=== PATIENT | female | born 1935 | race Caucasian/White ===

== ENCOUNTER 2018-03-10 13:40 | Outpatient (CLI) | payer MEDICARE, OTHER, SELFPAY ==
[2018-03-10] VITALS (13 sets, daily range): BP systolic 117–161; BP diastolic 48–106; PULSE 53–62; RESP 15–18; TEMP 36.2; O2SAT 94–100
--- NOTE | 2018-03-10 13:42 | DI.RAD.S_ITS ---
PROCEDURE: PAIN L INTERLAMINAR/CAUDAL INJ INDICATIONS: SPINAL STENOSIS FINDINGS: Fluoroscopic spot filming was performed to verify placement of spinal needles at the L4-5 interlaminar level(s), as labeled on the films. Appropriate location(s) of the needle tip(s) was confirmed by injection of iodinated contrast. IMPRESSION: Successful needle tip localization at the interlaminar region of L4-5 dorsally for epidural steroid injection. Dictated by: Mehran Rosales M.D. on 03/10/2018 at 16:16 Approved by: Mehran Rosales M.D. on 03/10/2018 at 16:17
--- NOTE | 2018-03-10 14:41 | P.PCN_ITS ---
Procedures Date/Time Date of procedure: 03/10/18 Time of procedure: 14:39 General Procedure description: PROVIDER: Luis Scott DO Operative Note PREOP DIAGNOSIS 1. HNP WITH RADICULAR FEATURES, 2. MULTILEVEL CENTRAL STENOSIS, POST OP DIAGNOSIS 1. HNP WITH RADICULAR FEATURES, 2. MULTILEVEL CENTRAL STENOSIS PROCEDURES 1. FLUORSCOPICALLY GUIDED CONTRAST CONTROLLED INTERLAMINAR EPIDURAL STEROID INJECTION -L4/5 PHYSICIAN: Luis Scott DO INDICATIONs: Stephanie is referred by Dr. Castanon for treatment of Bilateral Foraminal Stenosis R>L LE symptoms. FINDINGS Multilevel Central Spinal Stenosis with Nerve Root Compression DESCRIPTION OF PROCEDURE Fluoroscopically guided, contrast-controlled L4/5 translaminar epidural steroid injection. Following denial of allergy and review of potential side effects and complications, including, but not necessarily limited to, infection, allergic reaction, local tissue breakdown, temporary as well as permanent nerve injury, paralysis, stroke and possible , the patient indicated that the patient understood and agreed to proceed. An informed consent document was signed by the patient, witnessed by a nurse, and placed in the patient's chart. Additionally, other treatment options including modalities, medications, and physical therapy were reviewed with the patient. After review of previous anaesthesic history and IV conscious sedation the patient was deemed safe to proceed with todays procedure with IV conscious sedation as ASA class II designation. Safety time-out was performed to confirm patient ID, procedure to be performed and site of procedure. IV sedation was accomplished with a combination of 1mg was administered by the RN after DO order , titrated to patient comfort during the course of the procedure while the patient remained responsive to all verbal commands In the prone position, following sterile prep and drape of the lumbar region, the L4/5 translaminar space was identified fluoroscopically. The skin was anesthetized via a 25-gauge, 1.5-inch needle with 1% lidocaine solution. At this point, a 22-gauge short bevel spinal needle was atraumatically introduced and advanced under fluoroscopic guidance into the region of the L4/5 translaminar space. Depth was confirmed on lateral view. Radiological data, including multiple fluoroscopic views of the lumbar spine, reveal a spinal needle at the L4/5 translaminar space. Lateral views then show placement of the needle in the epidural space. Subsequent views show contrast material flowing superiorly and inferiorly in the epidural space. No vascular or intrathecal uptake is observed. At this point, using loss of resistance technique with saline and air, the epidural space was entered. This was confirmed following negative aspiration with injection of approximately 1.5 cc of Isovue 200, showing excellent epidural flow without vascular or intrathecal uptake. At this point, 1 cc of 1 % lidocaine solution combined with 3 cc or 20 mg of dexamethasone and 80mg Depo medrol was injected without incident. The patient tolerated the procedure well without signs or symptoms of complications prior to transfer to the recovery area continued monitoring without incident. The patient was then transferred to the recovery area where they were observed for an appropriate period of time after the injection. The patient reported a VAS score of 6 prior to the procedure and a post- procedure VAS of 0. Total Fluoroscopy Time: 11.8 seconds, 8.99 mGy Total Conscious Sedation Time: 24min POST OP INSTRUCTIONS The patient was provided a Pain Log to continue to record their response to the target-specific procedure prior to follow-up visit with their referring physician. Additionally, specific post-injection care instructions and a contact number to our office were provided if concerns arise regarding possible complications associated with the procedure are suspected. Luis Scott, DO Complications: none
[2018-03-10] MEDS: MIDAZOLAM 5 MG/5 ML VIAL IV (14:49)
[2018-03-10] MEDS: BUPIVACAINE 0.25% (PF) VIAL 2 ML INJ (14:50)
[2018-03-10] MEDS: DEXAMETHASONE 10 MG/ML VIAL 20 MG INJ (14:51)
[2018-03-10] MEDS: IOPAMIDOL 15 ML VIAL 3 ML INJ (14:51)
[2018-03-10] MEDS: methylPREDNISolone acetate 80 MG/ML VIAL INJ (14:51)
--- NOTE | 2018-03-11 14:09 | PC.NURSE ---
FOLLOW UP PHONE CALL MADE. MSG LEFT WITH OFFICE PHONE #
== END 2018-03-10 15:33 ==
LOC: RAD 13:41
PROVIDERS: Family Provider Internal Medicine; PCP Internal Medicine; Visit Provider Physical Medicine & Rehabilitation
DX: M51.16 Intervertebral disc disorders with radiculopathy, lumbar region (principal); M48.061 Spinal stenosis, lumbar region without neurogenic claudication; M41.26 Other idiopathic scoliosis, lumbar region
CPT/HCPCS: 62323; 99152; J1040; J1100; J2250

== ENCOUNTER 2019-05-18 22:27 | Inpatient (IN) | payer MEDICARE, OTHER, SELFPAY ==
[2019-05-18] VITALS (7 sets, daily range): BP systolic 127–162; BP diastolic 59–72; PULSE 75–86; RESP 15–25; TEMP 39.1; O2SAT 88–100
--- NOTE | 2019-05-18 22:44 | DI.RAD.S_ITS ---
PROCEDURE: XR CHEST 1V INDICATIONS: Cough TECHNIQUE: One view of the chest was acquired. COMPARISON: None. FINDINGS: Surgical changes and devices: None. Lungs and pleura: Lungs are clear. No pleural effusions or pneumothorax. Mediastinum: Mediastinal contours appear normal. Heart is enlarged. Bones and chest wall: S-shaped scoliosis of the thoracic spine. No suspicious bony lesions. Overlying soft tissues appear unremarkable. IMPRESSION: No acute cardiopulmonary disease process. Dictated by: Daxa Pa MD, PhD on 05/19/2019 at 8:41 Approved by: Daxa Pa MD, PhD on 05/19/2019 at 8:41
[2019-05-18] MEDS: ACETAMINOPHEN 325 MG TABLET 650 MG PO (22:53)
[2019-05-18] MEDS: ONDANSETRON 4 MG/2 ML INJ IV (22:53)
[2019-05-18] MEDS: SODIUM CHLORIDE 0.9% 1,000 ML 125 ML IV (22:53)
[2019-05-18 22:57] LABS: Add Manual Diff / Slide Review NO; Basophils Absolute Auto 200 /uL (0-100); Basophils Percent Auto 0.9 % (0-2); Eosinophils Absolute Auto 0 /uL (0-450); Eosinophils Percent Auto 0.3 % (2-4); Hematocrit 36.3 % (36-46); Lymphocytes Absolute Auto 1400 /uL (1100-4500); Lymphocytes Percent Auto 8.3 % (25-40); Mean Corpuscular HGB Conc 33.1 % (30-36); Mean Corpuscular Volume 90.6 fL (80-100); Monocytes Absolute Auto 1000 /uL (0-900); Monocytes Percent Auto 5.7 % (3-14); Neutrophils Absolute Auto 14400 /uL (1500-7000); Neutrophils Percent Auto 84.8 % (50-75); Platelet Count 449 X10^3/uL (150-400); Red Blood Cell Count 4.01 X10^6/uL (4.0-5.2); Red Cell Distribution Width 15.1 % (11.6-14.8)
[2019-05-18 23:06] LABS: Alanine Aminotransferase 41 IU/L (<35); Albumin 4.2 g/dL (3.5-5.0); Albumin Globulin Ratio 1.1 (1.0-2.8); Alkaline Phosphatase 116 U/L (38-126); Aspartate Aminotransferase 65 IU/L (14-36); Bilirubin Total 0.8 mg/dL (0.2-1.3); Blood Urea Nitrogen 11 mg/dL (7-17); Calcium 9.5 mg/dL (8.4-10.2); Carbon Dioxide 25 mmol/L (22-32); Chloride 96 mmol/L (98-107); Estimated Glomerular Filt Rate > 60.0 mL/min (>60); Globulin 3.9 g/dL (1.7-4.1); Glucose 114 mg/dL (80-110); HEMOLYSIS < 15 (0-50); Lipase 75 U/L (23-300); Potassium 4.6 mmol/L (3.4-5.1); Sodium 128 mmol/L (137-145); Total Protein 8.1 g/dL (6.3-8.2)
--- NOTE | 2019-05-18 23:06 | ED.WEAKNESS ---
HPI - Weakness General Chief complaint: Weakness Stated complaint: cough Time Seen by Provider: 05/18/19 22:35 Source: patient Mode of arrival: Wheelchair Limitations: no limitations History of Present Illness HPI Narrative: 84-year-old female. Has a history of rheumatoid arthritis. Takes methotrexate and also prednisone. Here for evaluation of 4-5 days of fatigue, chills, productive cough, shortness of breath. She states that just prior to that she was at her normal state health. But then started to have all of her presenting symptoms listed above. Patient does not have any underlying lung pathology. Is immunosuppressed given her rheumatoid arthritis and immune modulating medications that she takes. No recent travel. No chest pain. Has not tried anything for symptoms prior to arrival Related Data Home Medications Medication Instructions Recorded Confirmed atorvastatin [Lipitor] 20 mg PO HS #0 10/24/16 04/23/18 calcium carbonate 1 tab PO #0 10/24/16 04/23/18 enalapril maleate 2.5 mg PO QDAY #0 10/24/16 04/23/18 folic acid 1 mg PO QDAY #0 10/24/16 04/23/18 clotrimazole 1 %-betamethasone package TOP gram 03/06/18 04/23/18 0.05 % cream-zinc ox 20 % paste topical prednisone 1 mg tablet,delayed 1 mg PO DAILY 03/06/18 04/23/18 release acetaminophen-codeine 1 tab PO Q4H PRN 05/19/19 05/19/19 methotrexate sodium 2.5 mg PO QWEEK 05/19/19 05/19/19 metoprolol tartrate 50 mg PO DAILY 05/19/19 05/19/19 omeprazole 20 mg PO DAILY 05/19/19 05/19/19 Previous Rx's Medication Instructions Recorded polyethylene glycol 3350 [Miralax] 17 gm PO QDAY #1 bot 10/26/16 Allergies Allergy/AdvReac Type Severity Reaction Status Date / Time No Known Drug Allergies Allergy Verified 05/18/19 22:49 Review of Systems Constitutional Constitutional: Reports chills, Reports fatigue, Reports fever(s) and Reports malaise ENT Ears, Nose, Mouth, and Throat: Denies vertigo and Denies disequilibrium Cardiovascular Cardiovascular: Denies chest pain and Reports dyspnea Respiratory Respiratory: Reports chest congestion, Reports cough and Reports dyspnea Gastrointestinal Gastrointestinal: Denies abdominal pain and Reports nausea Musculoskeletal Comments: No change in her baseline arthritis pain Neurologic Neurologic: Denies vertigo and Denies disequilibrium Endocrine Endocrine: Reports fatigue Hematologic/Lymphatic Hematologic/Lymphatic: Denies easy bleeding and Denies easy bruising Patient History Medical History Abdominal pain (Inactive) Constipation (Inactive) Hyponatremia (Inactive) Rheumatoid arthritis (Inactive) Scoliosis (and kyphoscoliosis), idiopathic (Inactive) Spinal stenosis at L4-L5 level (Inactive) Social History Smoking Status: Former smoker alcohol intake frequency: holidays/special occasions only Substance Use Type: does not use Exam Initial Vital Signs Initial Vital Signs: Vital Signs Temperature 102.3 F H 05/18/19 22:30 Pulse Rate 76 05/18/19 22:30 Respiratory Rate 15 05/18/19 22:30 Blood Pressure 162/72 H 05/18/19 22:30 Pulse Oximetry 97 05/18/19 22:30 Const General: ill appearing Orientation: alert, awake and oriented x3 HENMT Head: normal to inspection and normocephalic Chest Chest: normal inspection of the chest Resp Effort & Inspection: cough, not labored, no respiratory distress and tachypneic Auscultation: diminished lung sounds, rales and rhonchi Cardio Rate: regular rate Pulses: radial pulses present GI Inspection: non-distended Palpation: soft and No tender Skin Lesions: no lesions Rashes: no rashes Neuro General: alert, awake and oriented x3 Cognition: normal cognition Speech: speech normal Extrem Other: Musculoskeletal exam consistent with stated history of rheumatoid arthritis Psych Appearance: grossly normal and well kempt Scores GCS Marisa coma scale eye opening: Spontaneous Muir coma scale verbal response: Orientated Muir coma scale motor response: Obey commands Marisa coma scale total score: 15 Course Orders Ordered: ED Orders 05/18/19 22:40 B Type Natriuretic Peptide Stat Complete Blood Count AUTO DIFF Stat Comprehensive Metabolic Panel Stat Lactate (Lactic Acid) Stat Lipase Stat Procalcitonin Stat Respiratory Panel (Film Array) Stat Sputum Culture Stat 05/18/19 22:44 XR chest 1V Stat 05/18/19 22:54 Blood Culture Stat Acetaminophen (Tylenol) 650 mg PO Q6HR PRN PRN Reason: As Needed for Fever/Mild Pain Sodium Chloride (Normal Saline 0.9%) 1,000 mls @ 125 mls/hr IV CONT FIDELIA Last Admin: 05/18/19 22:53 Dose: 125 mls/hr Documented by: JERSON Levofloxacin (Levaquin) 750 mg in 150 mls @ 100 mls/hr IV NOW ONE Stop: 05/19/19 01:11 Last Admin: 05/19/19 00:01 Dose: 100 mls/hr Documented by: BEBETO Naloxone HCl (Narcan) 0.2 mg IV Q2MIN PRN PRN Reason: Opiate Reversal Ondansetron HCl (Zofran Odt) 4 mg PO Q8HR PRN PRN Reason: Nausea And Vomiting Discontinued Medications Acetaminophen (Tylenol) 650 mg PO NOW ONE Stop: 05/18/19 22:46 Last Admin: 05/18/19 22:53 Dose: 650 mg Documented by: JERSON Ondansetron HCl (Zofran) 4 mg IV NOW ONE Stop: 05/18/19 22:44 Last Admin: 05/18/19 22:53 Dose: 4 mg Documented by: JERSON Vital Signs Vital signs: Vital Signs - 8 hr 05/18/19 22:30 05/18/19 22:45 05/18/19 22:57 Temperature 102.3 F H 102.3 F H Pulse Rate 76 75 76 Respiratory Rate 15 25 H 15 Blood Pressure 162/72 H 162/72 H Blood Pressure [Right Arm] Pulse Oximetry 97 97 97 05/18/19 23:00 05/18/19 23:15 05/18/19 23:30 Temperature Pulse Rate 79 79 75 Respiratory Rate 20 19 25 H Blood Pressure Blood Pressure [Right Arm] 157/59 H 127/72 Pulse Oximetry 93 100 99 05/18/19 23:34 Temperature Pulse Rate 86 Respiratory Rate Blood Pressure Blood Pressure [Right Arm] 162/72 H Pulse Oximetry 97 MDM - Weakness Lab Data Attestation: I reviewed the patient's lab results. Result diagrams: 05/18/19 22:40 05/18/19 22:40 Labs: Lab Results 05/18/19 05/18/19 05/18/19 Range/Units 22:40 22:40 22:40 WBC 17.0 H (4.5-11.0) X10^3/uL RBC 4.01 (4.0-5.2) X10^6/uL Hgb 12.0 (12.0-16.0) g/dL Hct 36.3 (36-46) % MCV 90.6 (80-100) fL MCH 30.0 (26-34) PG MCHC 33.1 (30-36) % RDW 15.1 H (11.6-14.8) % Plt Count 449 H (150-400) X10^3/uL Neut % (Auto) 84.8 H (50-75) % Lymph % (Auto) 8.3 L (25-40) % Traverse % (Auto) 5.7 (3-14) % Eos % (Auto) 0.3 L (2-4) % Baso % (Auto) 0.9 (0-2) % Neut # (Auto) 63603 H (2967-8202) /uL Lymph # (Auto) 1400 (0317-1279) /uL Traverse # (Auto) 1000 H (0-900) /uL Eos # (Auto) 0 (0-450) /uL Baso # (Auto) 200 H (0-100) /uL Sodium 128 L (137-145) mmol/L Potassium 4.6 (3.4-5.1) mmol/L Chloride 96 L (98-107) mmol/L Carbon Dioxide 25 (22-32) mmol/L BUN 11 (7-17) mg/dL Creatinine 0.50 L (0.52-1.04) mg/dL Estimated GFR > 60.0 (>60) mL/min BUN/Creatinine Ratio 22.0 (6-22) Glucose 114 H (80-110) mg/dL Lactate 1.0 (0.7-2.1) mmol/L Calcium 9.5 (8.4-10.2) mg/dL Total Bilirubin 0.8 (0.2-1.3) mg/dL AST 65 H (14-36) IU/L ALT 41 H (<35) IU/L Alkaline Phosphatase 116 (38-126) U/L B-Natriuretic Peptide 633 H (<100) Total Protein 8.1 (6.3-8.2) g/dL Albumin 4.2 (3.5-5.0) g/dL Globulin 3.9 (1.7-4.1) g/dL Albumin/Globulin Ratio 1.1 (1.0-2.8) Lipase 75 (23-300) U/L Procalcitonin (<0.5) ng/mL Chlamy pneumoniae PCR (Not Detect) Adenovirus (PCR) (Not Detect) B.parapertussis DNA PCR (Not Detect) Coronavirus OC43 (PCR) (Not Detect) Coronavirus HKU1 (PCR) (Not Detect) Coronavirus 229E (PCR) (Not Detect) Coronavirus NL63 (PCR) (Not Detect) Human Metapneumovir PCR (Not Detect) Influenza Type A (PCR) (Not Detect) Influenza Type B (PCR) (Not Detect) M. pneumoniae (PCR) (Not Detect) Parainfluenza 1 (PCR) (Not Detect) Parainfluenza 2 (PCR) (Not Detect) Parainfluenza 3 (PCR) (Not Detect) Parainfluenza 4 (PCR) (Not Detect) RSV (PCR) (Not Detect) Entero/Rhino (PCR) (Not Detect) 05/18/19 05/18/19 Range/Units 22:40 22:40 WBC (4.5-11.0) X10^3/uL RBC (4.0-5.2) X10^6/uL Hgb (12.0-16.0) g/dL Hct (36-46) % MCV (80-100) fL MCH (26-34) PG MCHC (30-36) % RDW (11.6-14.8) % Plt Count (150-400) X10^3/uL Neut % (Auto) (50-75) % Lymph % (Auto) (25-40) % Traverse % (Auto) (3-14) % Eos % (Auto) (2-4) % Baso % (Auto) (0-2) % Neut # (Auto) (9931-8543) /uL Lymph # (Auto) (4062-1453) /uL Traverse # (Auto) (0-900) /uL Eos # (Auto) (0-450) /uL Baso # (Auto) (0-100) /uL Sodium (137-145) mmol/L Potassium (3.4-5.1) mmol/L Chloride (98-107) mmol/L Carbon Dioxide (22-32) mmol/L BUN (7-17) mg/dL Creatinine (0.52-1.04) mg/dL Estimated GFR (>60) mL/min BUN/Creatinine Ratio (6-22) Glucose (80-110) mg/dL Lactate (0.7-2.1) mmol/L Calcium (8.4-10.2) mg/dL Total Bilirubin (0.2-1.3) mg/dL AST (14-36) IU/L ALT (<35) IU/L Alkaline Phosphatase (38-126) U/L B-Natriuretic Peptide (<100) Total Protein (6.3-8.2) g/dL Albumin (3.5-5.0) g/dL Globulin (1.7-4.1) g/dL Albumin/Globulin Ratio (1.0-2.8) Lipase (23-300) U/L Procalcitonin < 0.05 (<0.5) ng/mL Chlamy pneumoniae PCR Not detected (Not Detect) Adenovirus (PCR) Not detected (Not Detect) B.parapertussis DNA PCR Not detected (Not Detect) Coronavirus OC43 (PCR) Not detected (Not Detect) Coronavirus HKU1 (PCR) Not detected (Not Detect) Coronavirus 229E (PCR) Not detected (Not Detect) Coronavirus NL63 (PCR) Not detected (Not Detect) Human Metapneumovir PCR Not detected (Not Detect) Influenza Type A (PCR) Not detected (Not Detect) Influenza Type B (PCR) Not detected (Not Detect) M. pneumoniae (PCR) Not detected (Not Detect) Parainfluenza 1 (PCR) Not detected (Not Detect) Parainfluenza 2 (PCR) Not detected (Not Detect) Parainfluenza 3 (PCR) Not detected (Not Detect) Parainfluenza 4 (PCR) Not detected (Not Detect) RSV (PCR) Not detected (Not Detect) Entero/Rhino (PCR) Not detected (Not Detect) Imaging Data Chest x-ray: Attestation: I personally reviewed and interpreted this imaging study as follows: My impression: No focal consolidations MDM Narrative Medical decision making narrative: Patient clinically has pneumonia. She is febrile, productive cough, coarse breath sounds bilaterally. There is no focal consolidations on the chest x-ray however I do feel that she has pneumonia. Patient does not meet criteria for healthcare associated pneumonia. She was febrile upon arrival. Was tachypneic on my exam. Does have an elevated white blood cell count however this is in the setting of patient on methotrexate and prednisone. Patient did become slightly hypoxic to the high 80s requiring oxygen by nasal cannula to keep her oxygen saturations the 90s. Fever did improve with Tylenol. She was given fluids. Lactate procalcitonin negative. Patient was given antibiotics here in the emergency department. Discussed the case with the night nurse practitioner who will accept patient for further evaluation and treatment. Discussed the admission with the patient and her is at bedside. She expressed understanding and agreement. Discharge Plan Departure Patient Disposition: Admitted As Inpatient Clinical Impression: Pneumonia Qualifiers: Pneumonia type: due to unspecified organism Laterality: unspecified laterality Lung location: unspecified part of lung Qualified Code(s): J18.9 - Pneumonia, unspecified organism Rheumatoid arthritis Qualifiers: Rheumatoid arthritis location: unspecified site Rheumatoid factor presence: unspecified presence Qualified Code(s): M06.9 - Rheumatoid arthritis, unspecified Admit Date/Time: 05/18/19 23:51 Admit Provider: Wyatt Chen
[2019-05-18 23:26] LABS: Procalcitonin < 0.05 ng/mL (<0.5)
[2019-05-18 23:31] LABS: B Type Natriuretic Peptide 633 (<100)
[2019-05-19] VITALS (9 sets, daily range): BP systolic 127–145; BP diastolic 52–72; PULSE 72–89; RESP 16–20; TEMP 36.7–38.6; O2SAT 93–98; BMI 17.6
[2019-05-19] MEDS: levoFLOXacin 750 MG/150 ML PIGGYBACK 100 MG IV (00:01)
[2019-05-19 00:22] LABS: Adenovirus Not Detected (Not Detect); Bordetella pertussis Not Detected (Not Detect); Chlamydophila pneumoniae Not Detected (Not Detect); Coronavirus 229E Not Detected (Not Detect); Coronavirus HKU1 Not Detected (Not Detect); Coronavirus NL 63 Not Detected (Not Detect); Coronavirus OC43 Not Detected (Not Detect); Human Metapneumovirus Not Detected (Not Detect); Human Rhinovirus/Enterovirus Not Detected (Not Detect); Influenza A Not Detected (Not Detect); Influenza B Not Detected (Not Detect); Mycoplasma pneumoniae Not Detected (Not Detect); Parainfluenza Virus 1 Not Detected (Not Detect); Parainfluenza Virus 2 Not Detected (Not Detect); Parainfluenza Virus 3 Not Detected (Not Detect); Parainfluenza Virus 4 Not Detected (Not Detect); Respiratory Syncytial Virus Not Detected (Not Detect)
--- NOTE | 2019-05-19 00:58 | PM.HP.1 ---
History of Present Illness History of Present Illness Date Patient Seen: 05/19/19 Time Patient Seen: 00:58 Chief complaint: cough Narrative: The patient is an 84-year-old female with PMH of HTN, HLD, h/o breast cancer (s/p mastectomy, no h/o radiation or chemo), rheumatoid arthritis, chronic immuno suppressive therapy (on methotrexate, prednisone, and toclinizab infusions), chronic pain (2/2 degenerative joint disease, OA, and RA), chronic hyponatremia (baseline Na 130), and prior tobacco use (30 PYH, quit 1991). Patient has had a fall 5-6 months ago and suffered a severe fall w/ pelvic and hip fracture requiring surgical intervention. Patient presented to the ED on 05/18/2019 with a productive cough (+ white thick purulence). Symptoms initially noted two weeks ago, respectively. At that time having green purulence. She was evaluate and diagnosed w/ bronchitis. Patient does not recall a diagnosis of pneumonia. She was treated with a 5 day course of azithromycin (05/04-05/08 treated w/ azithromycin). She felt better, however continued to have cough with white phlegm w/o increasing purulence. In the past 3 days reports malaise, intermittent chills, nausea and dry heaving (no overt vomiting). On day of ED presentation felt short of breath. She denies worsening dyspnea with exertion; however, also notes that she has been sedentary and mobility has been diminished. She denies orthopnea, but does note difficulty laying in supine position in the last two weeks as it aggravated her cough. At baseline patient does not use oxygen. She denies AYALA, CP, palpitations, dizziness, lightheadedness or syncopal events. No hemoptysis, abdominal pain or GI distress. Reports good appetite and stable weight. Reports presence of stress incontinence and malodorous urine, w/o hematuria, dysuria or urinary frequency. At baseline ambulates with a walker. She has been receiving physical therapy in lieu of a fall and orthopedic intervention 5-6 months ago. Known to have RA. Currently treated with 8 mg of methotrexate every friday, 2 mg of prednisone daily, and tocilizumab (Actemra) infusion every 8 weeks. Her dose of methotrexate (went from 6 mg to 8 mg) and prednisone (went from 4 mg to 2 mg) recently adjusted. No known complications with prolonged methotrexate and prednisone therapy reported. Follows with assembler and tester electronics, Dr. Ramos, in [place]. Patient's PCP is Lara Castanon. UTD on influenza vaccination, received FLUAD [id number] on 03/31/2019. ED Presentation & Work-Up VS, 05/18/2019 at 22:30 T 102.3 BP 162/72 HR 76 RR 15 SpO2 97% on 2L of oxygen. Labs, 05/18/2019 at 22:40 Lactate 1.0 PCT < 0.05 WBC 17.0 Hgb 12.0 Plt 449 Na 128 K 4.6 Cl 96 Ca 9.5 Alb 4.2 CO2 25 BUN 11 Cr 0.5 BUN:CR 22 TBili 0.8 AST 65 ALT 41 Alk Phos 116 Lipase 75 BNP 633 Respiratory viral panel. NEGATIVE No urine studies done while patient in ED. Blood Cx and Sputum Cx collected in ED, pending. In ED patient was treated with ondansetron 4 mg IV for nausea (05/18 23:53), acetaminophen 650 mg PO for febrile state (05/18 23:53), and levofloxacin 750 mg IV for suspected respiratory infection (05/19 00:01). She was started on isotonic IVF (NS @ 125 ml/hr, 05/18 22:53) for hydration. Patient History Medical History (Updated 05/19/19 @ 01:18 by KAYLEIGH Hyman) Chicken pox (Inactive 1945) Chronic pain syndrome (Chronic) Constipation (Chronic) Essential hypertension (Chronic) Hyperlipidemia (Chronic) Hyponatremia (Chronic) Measles (Inactive 1946) Osteoarthritis (Chronic 2000) Pubic ramus fracture (Chronic) Rheumatoid arthritis (Chronic 1988) Scoliosis (and kyphoscoliosis), idiopathic (Inactive) Spinal stenosis at L4-L5 level (Inactive) Surgical History (Updated 05/19/19 @ 02:57 by KAYLEIGH Hyman) H/O mastectomy (Acute) S/P bilateral foot surgery (Acute) Status post hip surgery (Acute ~12/2018) Family & Social History Family History Father Heart disease Grandfather Heart disease Grandmother Diabetes mellitus Safety & Behavioral: Feels Safe in Current Yes Environment Been Physically Hurt or No Threatened By a Person Tobacco & Substance use: Smoking Status Former smoker, quit in 1991 alcohol intake frequency holiday/special occasion Substance Use Type does not use Meds Home Medications and Allergies Home Medications Medication Instructions Recorded Confirmed Type atorvastatin [Lipitor] 20 mg PO HS #0 10/24/16 05/19/19 History calcium carbonate [Calcium 500] 1 tab PO DAILY #0 10/24/16 05/19/19 History enalapril maleate 2.5 mg PO QDAY #0 10/24/16 05/19/19 History folic acid 1 mg PO QDAY #0 10/24/16 05/19/19 History polyethylene glycol 3350 [Miralax] 17 gm PO QDAY #1 bot 10/26/16 05/19/19 Rx prednisone 1 mg tablet,delayed 1 mg PO DAILY 03/06/18 05/19/19 History release acetaminophen-codeine 1 tab PO Q4H PRN 05/19/19 05/19/19 History aspirin 81 mg PO DAILY 05/19/19 05/19/19 History methotrexate sodium 2.5 mg PO QWEEK 05/19/19 05/19/19 History metoprolol tartrate 50 mg PO DAILY 05/19/19 05/19/19 History omeprazole 20 mg PO DAILY 05/19/19 05/19/19 History Allergies Allergy/AdvReac Type Severity Reaction Status Date / Time No Known Drug Allergies Allergy Verified 05/18/19 22:49 Review of Systems Review of Systems ROS Unobtainable: All systems reviewed & are unremarkable except as noted in HPI and below Exam Vital Signs (past 8 hours): - 05/18/19 22:30 05/18/19 22:45 05/18/19 22:57 Temperature 102.3 F H 102.3 F H Pulse Rate 76 75 76 Respiratory Rate 15 25 H 15 Blood Pressure 162/72 H 162/72 H Blood Pressure [Right Arm] Pulse Oximetry 97 97 97 05/18/19 23:00 05/18/19 23:15 05/18/19 23:30 Temperature Pulse Rate 79 79 75 Respiratory Rate 20 19 25 H Blood Pressure Blood Pressure [Right Arm] 157/59 H 127/72 Pulse Oximetry 93 100 99 05/18/19 23:34 05/19/19 00:07 05/19/19 00:12 Temperature 101.5 F H 101.5 F H Pulse Rate 86 Respiratory Rate Blood Pressure Blood Pressure [Right Arm] 162/72 H Pulse Oximetry 97 Oxygen Delivery Method Room Air Oxygen Flow Rate 2 Narrative Exam Narrative: Constitutional: NAD Neurologic: AOx3, no focal neurological deficits Head: NC, AT Eyes: PERRL, EOMI, Ears: external ears normal, no otorrhea Nose: external nose normal, no rhinorrhea or epistaxis Throat: MMM, oropharynx w/o exudate Neck: no masses, lymphadenopathy, or JVD Chest / Respiratory: Equal chest rise, RR 18-24, able to speak in full sentenses Cough (productive), coarse crackles throughout (worse on the left) w/ exception of RUL Heart / CV: S1S2, occasional ectopic beats, no murmur Abdomen / GI: round, NT, ND, + BS, no organomegaly : no suprapubic tenderness, [id number] suprapubic distention, no CVA Peripheral / Vascular: warm to touch, DP and PT pulses palpable, no edema BLE tender to touch (patient states this is her baseline), No overt edema or erythema Musc: full ROM of upper and lower extremities, diminished muscle tone and bulk, strength equal bilaterally Skin: no ecchymosis or suspicious lesions / ulcers, LLE w/ discoloration Objective Labs Result Diagrams: 05/18/19 22:40 05/18/19 22:40 Labs: Laboratory Results - last 24 hr 05/18/19 05/18/19 05/18/19 22:40 22:40 22:40 WBC 17.0 H RBC 4.01 Hgb 12.0 Hct 36.3 MCV 90.6 MCH 30.0 MCHC 33.1 RDW 15.1 H Plt Count 449 H Neut % (Auto) 84.8 H Lymph % (Auto) 8.3 L [place] % (Auto) 5.7 Eos % (Auto) 0.3 L Baso % (Auto) 0.9 Neut # (Auto) 97486 H Lymph # (Auto) 1400 [place] # (Auto) 1000 H Eos # (Auto) 0 Baso # (Auto) 200 H Sodium 128 L Potassium 4.6 Chloride 96 L Carbon Dioxide 25 BUN 11 Creatinine 0.50 L Estimated GFR > 60.0 BUN/Creatinine Ratio 22.0 Glucose 114 H Lactate 1.0 Calcium 9.5 Total Bilirubin 0.8 AST 65 H ALT 41 H Alkaline Phosphatase 116 B-Natriuretic Peptide 633 H Total Protein 8.1 Albumin 4.2 Globulin 3.9 Albumin/Globulin Ratio 1.1 Lipase 75 Procalcitonin Chlamy pneumoniae PCR Adenovirus (PCR) B.parapertussis DNA PCR Coronavirus OC43 (PCR) Coronavirus HKU1 (PCR) Coronavirus 229E (PCR) Coronavirus NL63 (PCR) Human Metapneumovir PCR Influenza Type A (PCR) Influenza Type B (PCR) M. pneumoniae (PCR) Parainfluenza 1 (PCR) Parainfluenza 2 (PCR) Parainfluenza 3 (PCR) Parainfluenza 4 (PCR) RSV (PCR) Entero/Rhino (PCR) 05/18/19 05/18/19 22:40 22:40 WBC RBC Hgb Hct MCV MCH MCHC RDW Plt Count Neut % (Auto) Lymph % (Auto) [place] % (Auto) Eos % (Auto) Baso % (Auto) Neut # (Auto) Lymph # (Auto) [place] # (Auto) Eos # (Auto) Baso # (Auto) Sodium Potassium Chloride Carbon Dioxide BUN Creatinine Estimated GFR BUN/Creatinine Ratio Glucose Lactate Calcium Total Bilirubin AST ALT Alkaline Phosphatase B-Natriuretic Peptide Total Protein Albumin Globulin Albumin/Globulin Ratio Lipase Procalcitonin < 0.05 Chlamy pneumoniae PCR Not detected Adenovirus (PCR) Not detected B.parapertussis DNA PCR Not detected Coronavirus OC43 (PCR) Not detected Coronavirus HKU1 (PCR) Not detected Coronavirus 229E (PCR) Not detected Coronavirus NL63 (PCR) Not detected Human Metapneumovir PCR Not detected Influenza Type A (PCR) Not detected Influenza Type B (PCR) Not detected M. pneumoniae (PCR) Not detected Parainfluenza 1 (PCR) Not detected Parainfluenza 2 (PCR) Not detected Parainfluenza 3 (PCR) Not detected Parainfluenza 4 (PCR) Not detected RSV (PCR) Not detected Entero/Rhino (PCR) Not detected Assessment & Plan Assessment & Plan narrative: Patient is being admitted for acute respiratory failure with hypoxia. Acute respiratory failure wih hypoxia, present on admission, active - etiology is not entirely clear at this time bacterial bronchitis, PNA / pneumonitis, vs acute pulmonary edema - leukocytosis (reactive) vs in the setting of infection vs coritcosteroid induced (less likely, given presence of neutrophils / left shift) - lactate, PCT, and RVP WNL - elevated BNP w/ interstitial edema / pulm congestion on CXR, kenzie give 20 mg IV lasix - repeat CXR in am, 2 view - may need to consider CTA of chest to r/o PE, w/in 5 months of orthopedic surgery (on ASA, but no other anticoagulation; sedentary); no sx of DVT - on immunosuppression w/ medication w/ predisposition to pneumonitis and interstitial lung disease - consult RT, supplemental O2 prn, IS - check labs in am - CBC, CMP, Mg Sepsis, possible or suspected, present on admission, active T 102.3F Tachypnea WBC 17.0 w/ organ dysfunction (ie acute respiratory failure) Lactate and PCT WNL. On 05/04/2019 treated w/ a 5 day course of azithromycin. RVP negative. CXR w/o acute findings (per ED communication, final read pending) - blood cx (collected in ED), pending, to be followed - sputum cx (collected in ED), pending, to be followed - will obtain urinalysis - f/u on final cxr read, when available in am - patient is immunocompromised due to h/o RA - supportive care: anti-emetics, analgesics - number of factors against further abx therapy; received 750 mg of levofloxacin in ED; however, will continue pending blood cx results and repeat cxr her next dose is adjust to Q48 hours per her age and CrCl Elevated BNP, acute, present on admission, active - BNP 633, no trend available to compare - acute pulmonary edema vs pneumonia - CXR final read pending. Appears to have cardiomegally and pulmonary congestion. Stop IVF. Give 20 mg IV furosemide x1. - Check Trop results reviewed: Trop 0.056, will obtain STAT EKG - EKG results: SR (v-rate 75), left atrial enlargement, possible RV conduction delay, LVH and non-specific ST/T abnormality. Consistent with prior EKG, non-ischemic. - Most recent echo from 09/13/2016. LVEF 60-65% w/ [id number] bi-ventricular hypertrophy (see details below) LVEF 60-65%. LV normal in size and function. Normal wall motion. Mild to moderate concentric LVH. RV normal in size and function. Mild RV hypertrophy. Both atria normal in size . No Doppler evidence for an atrial septal defect. No overt valvular defects. Age related calcification of the aortic valve, but no stenosis or regurgitation present Mild atherosclerosis of the abdominal aorta. Compared to study from 06/30/2009 w/ new findings of bi-ventricular hypetrophy and could be related to patient's rheumatoid arthritis Type II myocardial infarction w/o ST elevation, acute, present on admission, active - Sx of hypoxia and dyspnea, no active CP - Suspected to be in the setting of an acute respiratory failure secondary to pulmonary vascular congestion and/or pneumonia - Trop 0.056 EKG non-ischemic, non-specific ST-T changes w/o overt depression, no pathological Q-waves Elevated liver enzymes, acute, present on admission, active - AST 65 and ALT 45, mild elevation. No abdominal pain. Bilirubin WNL. Continue trending. CMP ordered for am. Hyponatremia, chronic per review of records, present on admission, active / stable - Na 128 (baseline 130), continue trending - potentially exacerbated by pulmonary congestion, concern for acute heart failure, will give 20 mg IV furosemide tonight and re-evaluate in am - may need to consider fluid / free water restriction Moderate protein calorie malnutrition, present on admission, active 84 y.o BMI 17.7 w/ moderate loss of body fat and diminished physical function Rheumatoid arthritis, chronic condition, present on admission, active / stable - Resume PROPERTY TECHNICIAN regimen of prednisone and methotrexate - On tocilizumab (Actemra) infusions every 8 weeks, last on 05/14/2019 - pending blood cx results and repeat cxr, perhaps consider temporary cessation of immunosuppression until bacterial infection can be healed; may need to discuss w/ her assembler and tester electronics Chronic pain syndrome, present on admission, active / stable - controlled Multi-factorial: RA, OA, DJD, cervical radiculopathy, scoliosis, and chronic ramus fx - continue tylenol w/ codeine Essential hypertension, chronic condition, present on admission, active / stable Presented in mild-moderate hypertensive state for age. PT improved w/o interventions. PROPERTY TECHNICIAN on enalapril 2.5 mg daily. - Continue trending BPs - Hold PROPERTY TECHNICIAN regimen of enalapril for now out of concern for sepsis and potential hemodynamic decompensation, will re-evaluate in a.m. and/or daily and resume anti-hypertensive accordingly Hyperlipidemia, chronic condition, present on admission, active / stable - controlled - Controlled w/ atorvastatin 20 mg QHS, resume PROPERTY TECHNICIAN regimen Code status discussed with patient. Wishes to be full code. Proxy decision maker is her son Dominic (primary), daughter Tennille (secondary) and Son Eric (secondary). Home medications reviewed and reconciled accordingly. VTE prophylaxis w/ SQ heparin
[2019-05-19 01:30] LABS: Troponin I 0.056 ng/mL (0.01-0.034)
--- NOTE | 2019-05-19 02:22 | PC.ADMIT ---
Addendum entered by Tamie Villatoro R.N. 05/19/19 06:06: Educated pt on purpose and use of incentive spirometer, pt is familiar with its use. Had pt do 5 repetitions with fair ability averaging 750ml, educated pt to do 10 reps every hour. Addendum entered by Tamie Villatoro R.N. 05/19/19 05:29: Pt having difficulty using call light, re-educated. Pt reports that she had her put her on the bed martin, found bedpan in bed with pt with 200ml urine. Educated pt that staff needs to assist pt, appears to be asleep at this time. Original Note: [phone] Admission Note: The patient,Stephanie Guzmán,84 y/o, was given written information regarding hospital policies, unit procedures and contact persons. Patient's smoking status: Former smoker. Vital Signs - 8 hr 05/18/19 22:30 05/18/19 22:45 05/18/19 22:57 Temperature 102.3 F H 102.3 F H Pulse Rate 76 75 76 Respiratory Rate 15 25 H 15 Blood Pressure 162/72 H 162/72 H Blood Pressure [Right Arm] Pulse Oximetry 97 97 97 05/18/19 23:00 05/18/19 23:15 05/18/19 23:30 Temperature Pulse Rate 79 79 75 Respiratory Rate 20 19 25 H Blood Pressure Blood Pressure [Right Arm] 157/59 H 127/72 Pulse Oximetry 93 100 99 05/18/19 23:34 05/19/19 00:07 05/19/19 00:12 Temperature 101.5 F H 101.5 F H Pulse Rate 86 Respiratory Rate Blood Pressure Blood Pressure [Right Arm] 162/72 H Pulse Oximetry 97 05/19/19 01:00 Temperature 98.8 F Pulse Rate 79 Respiratory Rate 20 Blood Pressure 129/52 L Blood Pressure [Right Arm] Pulse Oximetry 94 Pt arrived via stretcher accompanied by ED RN and Max, transferred via slider board to bed, pt has generalized pain and is sensitive to the slightest touch and movement. Pt is AxOx3, but does demonstrate some memory loss and directs some questions to to answer, makes mistakes with words such as saying broccoli instead of bronchitis and asking if she will have surgery for this admission, pt also was unsure of the name of the hospital she is in but is aware that she is in the hospital for current illness. Lung sounds are coarse crackles in the bases, is currently on RA, has intermittent cough that is wet sounding that produces thick white mucus. Heart sounds are RR, tele is NSR with BBB. Skin assessment is notable for abrasion in LLE and a large bruise to lechuga, and bruise to LRE on inside aspect just above the ankle. Pt reports that she takes strong doses of pain meds for long standing history of arthritis. Pt is unable to tolerate most touch, SCDs are refused at this time. Pt is a moderate fall risk d/t weakness but no hx of recent falls (fall approx 6 months ago). Bed alarm on and functioning, call light in reach and demonstrated, will continue to monitor.
[2019-05-19 03:19] LABS: Appearance Urine UA CLEAR; Bilirubin Urine UA NEGATIVE (NEGATIVE); Color Urine UA YELLOW; Glucose Urine UA TRACE g/dL (Negative); Ketones Urine UA TRACE (NEGATIVE); Leukocyte Esterase Urine UA NEGATIVE (NEGATIVE); Nitrite Urine UA NEGATIVE (Negative); Occult Blood Urine UA 1+ (Negative); Protein Urine UA 2+ (Negative)
[2019-05-19 03:22] LABS: pH Urine UA 7.5 (4.5-8.0)
[2019-05-19 03:27] LABS: RBC Urine 1-5/HPF (0-5/HPF)
[2019-05-19 03:28] LABS: Granular Casts Urine 5-10/LPF; Squamous Epithelial Cell Urine 0-1 /HPF (0-5/HPF); WBC Urine 1-5/HPF (0-5/HPF)
[2019-05-19 03:29] LABS: Bacteria Urine Many (>30)
[2019-05-19 03:30] LABS: Amorphous Sediment Urine 1+; Culture Indicated Urine Cult Not Indicated
[2019-05-19] MEDS: ASPIRIN 325 MG TABLET PO (03:53)
[2019-05-19] MEDS: FUROSEMIDE 20 MG/2 ML VIAL IV (03:54)
--- NOTE | 2019-05-19 05:29 | DI.RAD.S_ITS ---
PROCEDURE: XR CHEST 2V INDICATIONS: hypoxia, dyspnea TECHNIQUE: 2 views of the chest were acquired. COMPARISON: [facility], CR, XR CHEST 1V, 05/18/2019, 22:49. FINDINGS: Surgical changes and devices: None. Lungs and pleura: Lungs are clear. No pleural effusions or pneumothorax. Mediastinum: Mediastinal contours are normal. Heart size is normal. Bones and chest wall: No suspicious bony abnormalities. S-shaped thoracolumbar scoliosis. Soft tissues appear unremarkable. IMPRESSION: No evidence acute pulmonary process. Dictated by: Partha Quiroga M.D. on 05/19/2019 at 10:06 Approved by: Partha Quiroga M.D. on 05/19/2019 at 10:07
[2019-05-19 06:04] LABS: Add Manual Diff / Slide Review NO; Basophils Absolute Auto 0 /uL (0-100); Basophils Percent Auto 0.3 % (0-2); Eosinophils Absolute Auto 0 /uL (0-450); Eosinophils Percent Auto 0.2 % (2-4); Hematocrit 35.4 % (36-46); Hemoglobin 11.5 g/dL (12.0-16.0); Lymphocytes Absolute Auto 1400 /uL (1100-4500); Mean Corpuscular HGB Conc 32.4 % (30-36); Mean Corpuscular Hemoglobin 29.7 PG (26-34); Mean Corpuscular Volume 91.7 fL (80-100); Monocytes Absolute Auto 900 /uL (0-900); Monocytes Percent Auto 6.7 % (3-14); Neutrophils Absolute Auto 11700 /uL (1500-7000); Neutrophils Percent Auto 82.8 % (50-75); Platelet Count 382 X10^3/uL (150-400); Red Blood Cell Count 3.87 X10^6/uL (4.0-5.2); White Blood Cell Count 14.1 X10^3/uL (4.5-11.0)
[2019-05-19 06:08] LABS: Alanine Aminotransferase 40 IU/L (<35); Albumin 3.8 g/dL (3.5-5.0); Albumin Globulin Ratio 1.1 (1.0-2.8); Alkaline Phosphatase 98 U/L (38-126); Aspartate Aminotransferase 62 IU/L (14-36); BUN Creatinine Ratio 18.3 (6-22); Bilirubin Total 0.6 mg/dL (0.2-1.3); Blood Urea Nitrogen 11 mg/dL (7-17); Calcium 8.9 mg/dL (8.4-10.2); Carbon Dioxide 27 mmol/L (22-32); Chloride 95 mmol/L (98-107); Estimated Glomerular Filt Rate > 60.0 mL/min (>60); Globulin 3.5 g/dL (1.7-4.1); Glucose 111 mg/dL (80-110); HEMOLYSIS < 15 (0-50); Potassium 4.3 mmol/L (3.4-5.1); Sodium 131 mmol/L (137-145); Total Protein 7.3 g/dL (6.3-8.2)
--- NOTE | 2019-05-19 06:57 | DI.ECHO.S_ITS ---
[facility]---------+ [facility] +---------+ : : [address] : [place] : : : : [id number] : : : : Phone: [phone] Echocardiogram Report + + :Name: SHAUN BAEZA Study Date: 05/19/2019 Height: 63 in : :[facility] Weight: 100 lb: : Gender: Female BSA: 1.4 m2 : :: 1935 Age: 84 yrs : :Reason For Study: DYSPNEA : : Performed By: Randell Butcher : :Referring: YASH SALDANA : + + Interpretation Summary Left ventricular wall thickness is mild-moderately increased. The left ventricular ejection fraction is normal. There are no focal wall motion abnormalities. Diastolic parameters suggest a relaxation abnormality of the left ventricle, consistent with probable normal filling pressures. The right ventricle is normal in size and function. The right ventricular wall thickness is moderately increased. There is a small circumferential pericardial effusion without any echocardiographic evidence of cardiac tamponade. -Compared to prior echocardiogram, there is now a small amount of pericardial effusion without echocardiographic evidence of tamponade. Procedure: A two-dimensional transthoracic echocardiogram with color flow and Doppler was performed. The study quality was technically adequate. Comparison is made with the echocardiogram of 09/12/16. The patient was in normal sinus rhythm during the exam. Left Ventricle: The left ventricle is normal in size. Left ventricular wall thickness is mild-moderately increased. The ejection fraction is estimated to be 60-65%. The left ventricular ejection fraction is normal. There are no focal wall motion abnormalities. Diastolic parameters suggest a relaxation abnormality of the left ventricle, consistent with probable normal filling pressures. Right Ventricle: The right ventricle is normal in size and function. There is mild right ventricular hypertrophy. Atria: The left atrial size is normal. Right atrial size is normal. There is no Doppler evidence for an interatrial shunt. Mitral Valve: There is mild mitral annular calcification. There is trace mitral regurgitation. Aortic Valve: The aortic valve is mildly calcified. There is discrete nodular thickening of the non- coronary cusp. There is no hemodynamically significant valvular aortic stenosis. There is trace aortic regurgitation. Tricuspid Valve: The tricuspid valve is normal in structure and function. There is trace tricuspid regurgitation. The right ventricular systolic pressure is estimated to be at least 33 mmHg based on an estimated right atrial pressure of 3 mm Hg. Pulmonic Valve: The pulmonic valve is normal in structure and function. The velocity through the pulmonic valve is increased at 1.37 m/s. There is no pulmonic valvular regurgitation. Great Vessels: The aortic root is normal size. The dimensions of the ascending aorta are normal. The pulmonary artery is normal size. The IVC is of normal diameter and collapses greater than 50% with a sniff. This suggests a low right atrial pressure of 3 mm Hg. Pericardium/ Pleura There is a small pericardial effusion noted. There are no echocardiographic indications of cardiac tamponade. There is no pleural effusion. MMode/2D Measurements & Calculations LVIDd: 3.6 cm LVOT diam: 2.1 cm LVIDs: 1.9 cm Ao root diam: 3.1 cm FS: 48.9 % Aortic Jxn: 2.8 cm EPSS: 0.21 cm asc Aorta Diam: 3.2 cm IVSd: 1.2 cm Ao Arch Diam (Prox Trans): 2.2 cm LVPWd: 1.2 cm LV cruz. diameter/BSA (cm/m^2): 2.5 LV sys. diameter/BSA (cm/m^2): 1.3 LA dimension: 3.3 cm RA long axis: 4.4 cm LA A2 area: 20.9 cm2 RA area: 13.1 cm2 LA A4 area: 14.7 cm2 RA vol: 32.8 ml LA length (vol): 4.2 cm RA : 22.7 ml/m2 LA vol: 61.9 ml IVC diam: 0.88 cm LA vol index: 43.0 ml/m2 Doppler Measurements & Calculations Ao V2 max: 180.9 cm/sec LVOT Max Rj: 117.5 cm/sec Ao V2 mean: 129.2 cm/sec LV V1 max P.5 mmHg Ao max P.1 mmHg LV V1 VTI: 21.7 cm Ao mean P.4 mmHg CHRIS(I,D): 2.2 cm2 Ao V2 VTI: 32.9 cm CHRIS(V,D): 2.2 cm2 sev ratio: 0.66 CHRIS indexed to BSA (cm^2/m^2): 1.5 MV E max rj: 53.1 cm/sec TR max rj: 274.1 cm/sec MV A max rj: 79.5 cm/sec TR max P.1 mmHg MV E/A: 0.67 PA V2 max: 127.0 cm/sec Med Peak E' Rj: 3.2 cm/sec PA V2 mean: 90.0 cm/sec E/E' med: 16.6 PA mean P.6 mmHg Lat Peak E' Rj: 8.8 cm/sec PA pr(Accel): 26.6 mmHg E/E' lat: 6.1 PA Accel Time: 0.13 sec E/e' average: 11.3 MV dec time: 0.19 sec SV(LVOT): 73.0 ml Electronically signed by: César Vargas M.D. on Reading Physician:05/19/2019 04:42 PM
[2019-05-19] MEDS: HEPARIN 5,000 UNIT/ML VIAL 5000 UNIT SUBCUT ×2 (09:53→21:28)
[2019-05-19] MEDS: CODEINE/ACETAMINOPHEN 30/300 TABLET 1 TAB PO ×4 (09:53→21:51)
[2019-05-19] MEDS: FOLIC ACID 1 MG TABLET PO (09:53)
--- NOTE | 2019-05-19 11:30 | PT.IIE ---
Surgical History (Last Updated 05/19/19 @ 02:57 by KAYLEIGH Hyman) H/O mastectomy (Acute) S/P bilateral foot surgery (Acute) Status post hip surgery (Acute ~12/2018) Medical History (Last Updated 05/19/19 @ 01:18 by KAYLEIGH Hyman) Chicken pox (Inactive 1944) Chronic pain syndrome (Chronic) Constipation (Chronic) Essential hypertension (Chronic) Hyperlipidemia (Chronic) Hyponatremia (Chronic) Measles (Inactive 1946) Osteoarthritis (Chronic 2000) Pubic ramus fracture (Chronic) Rheumatoid arthritis (Chronic 1988) Scoliosis (and kyphoscoliosis), idiopathic (Inactive) Spinal stenosis at L4-L5 level (Inactive) Physical Therapy Inpatient Evaluation/Re-Eval M1 PT/OT-IP Prior Functional Status Start: 05/19/19 12:29 Freq: NEEDED Status: Active Protocol: Document 05/19/19 11:30 AB (Rec: 05/19/19 12:43 AB [id number]) Medical Review Prior Functional Status Medical History Reviewed Yes Communication ablel to make needs known Mobility and Gait pt sated that she is modified independent with all mobilities and ambulation using a FWW/SPC Social History Household Members spouse Living Arrangements House Number of Floors (Floors) Two Floors Number of Stairs To Enter/Railing? has a ramp to enter has 13 steps with R rail descending to get into TV room Home Environment Standard Height Toilet,Walk in Shower Home Equipment Front Wheel Walker,Quad Cane, Raised Toilet Seat w/Armrests, Shower Seat with Backrest,Hand Held Shower,Grab Bars Near Toilet M2 PT-IP Current Condition Start: 05/19/19 12:29 Freq: NEEDED Status: Active Protocol: Document 05/19/19 11:30 AB (Rec: 05/19/19 12:43 AB [id number]) Physical Therapy Current Condition Current Condition Evaluation Date 05/19/19 Treatment Diagnosis PNA; difficulty in walking Onset Date 05/18/19 Precautions Other Precautions falls M3 PT-IP Subjective Start: 05/19/19 12:29 Freq: NEEDED Status: Active Protocol: Document 05/19/19 11:30 AB (Rec: 05/19/19 12:43 AB [id number]) Subjective Physical Therapy Visit Type Type Initial Evaluation Visit Start Time 11:30 Visit Stop Time 11:42 Total Visit Minutes 12 Number of STAVE PLANER TENDER Visits 0 Physical Therapy Visit Comments Patient Comments pt agreeable to do PT Therapy Pain Assessment Pain When Pain Assessed At Rest Pain Present Pain Present Pain Reported Location Left Shoulder Intensity 7 Scale Used Numeric (1 - 10) Pain Management Techniques Timing of Activity with Medications M4 PT-IP Mobility and Gait Start: 05/19/19 12:29 Freq: NEEDED Status: Active Protocol: Document 05/19/19 11:30 AB (Rec: 05/19/19 12:43 AB [id number]) PT-Bed Mobility Assessment Sit to Supine Sit to Supine Standby Assistance PT-Transfer Assessment Sit to and From Stand Sit to and from Stand Contact Guard Assistance,1 Person Assistance,Use of Upper Extremities Equipment Transfer Assistive Device Gait Belt,Front Wheeled Walker Orthotic/Prosthetic Devices or Brace: No Transfers Transfer Destination Bed Transfer Technique pt ambulated using FWW Transfer Ability Level of Assist Contact Guard Assistance Comments Mobility Comments pt can be impulsive. pt ambulated from chair to the bed using FWW CGA ~ 7 ft. Assisted pt back to bed SBA. cardiopulmonary technologist chief came in to do ECHO procedure on pt. left pt with tech. O2 sat at room air: 94% Gait Assessment Gait Gait Assistance Required: Contact Guard Assist Distance (Feet) 7 Able to Maintain Weight Bearing Status Yes During Gait Assistive Devices Assistive Device Gait Belt,Front Wheeled Walker Orthotic/Prosthetic Devices or Brace: No Gait Deviations General Gait Pattern Decreased Stride Length, Decreased Feet Clearance Factors Limiting Gait Function Factors Limiting Gait Function Decreased Activity Tolerance, Decreased Strength,Limited Range of Motion,Pain,Poor Balance,Poor Safety Awareness PT-Balance Assessment Sitting Balance and Reactions Static Sitting Balance Ability Good Dynamic Sitting Balance Ability Good Standing Balance and Reactions Static Standing Balance Ability Fair Dynamic Standing Balance Ability Fair Device Used FWW M5 PT-IP Objective Assessments Start: 05/19/19 12:29 Freq: NEEDED Status: Active Protocol: Document 05/19/19 11:30 AB (Rec: 05/19/19 12:43 AB [id number]) Orientation Orientation/Cognition Level of Alertness Alert Orientation Name Safety Awareness Decreased Safety Awareness Memory Description Short Term Impaired Comments with confusion Strength Lower Extremity Strength Hip 4-/5 Knee 4-/5 Muscle Tone Muscle Tone WNL Yes M6 PT-IP Treatment Start: 05/19/19 12:29 Freq: NEEDED Status: Active Protocol: Document 05/19/19 11:30 AB (Rec: 05/19/19 12:43 AB [id number]) Physical Therapy Treatment Education Education Provided Safety M7 PT-IP Assessment and Plan Start: 05/19/19 12:29 Freq: NEEDED Status: Active Protocol: Document 05/19/19 11:30 AB (Rec: 05/19/19 12:43 AB [id number]) PT Summary Assessment and Plan Potential Rehabilitation Potential Good Status of Condition at Evaluation Stable Summary Impairments Pain,ROM,Strength,Balance, Coordination,Sensation,Tone, Cognition,Bed Mobility, Transfers,Gait,Activity Tolerance Assessment Summary pt requiring SBA to CGA with mobility. pt plans to go home with spouse to assist her. will continue to assess progress for safety d/c plan. Goals Bed Mobility Goal Independent Transfer Goal Independent,Cane,Front Wheeled Walker Gait Goal Independent,Cane,Front Wheel Walker Gait Distance 200 Other Goals up/down 13 steps R rail descending SBA Days to Meet Goals 5 Frequency of Treatment Frequency Of Treatment Once a Day Treatment Plan Physical Therapy Treatment Plan Bed Mobility Training,Transfer Training,Gait Training, Therapeutic Exercise,Balance Retraining,Discharge Planning, Hot or Cold Pack,Neuromuscular Re-ed,Coordination Retraining ,Manual Therapy Other Recommendations and Next Treatment ambulation; stair climbing Focus Recommendations To Nursing Amount of Assist Needed 1 Person Assist Discharge Recommendations PT Discharge Recommendations Home with Assistance
--- NOTE | 2019-05-19 14:38 | CM.DANOTE ---
Patient is an 84 year old female who was admitted on 05/18/19 for Acute Respiratory Failure and Sepsis. Pt has [employer] and [employer] for insurance and her PCP is Dr. Lara Castanon. EMR was reviewed. Per MD, pt with possible pneumonia and to have Echo today and possible d/c tomorrow if stable. Per PT, recommending safe d/c home with spouse assist. SW met beside with pt and spouse and explained role and pt confirms that she lives at home in [place] with her spouse and has two local supportive sons living in [place]. Pt had a recent hip fx and went to [facility] rehab for 5 weeks before d/c home with HH. Pt recently discharged from and has been going to outpt therapy successfully until she had these medical concerns. Pt states she has walker and w/c at home from her hip fx and pt and spouse do not feel HH needed again at this time. Pt preference is to d/c home with assist and local family support and continue her outpt PT and pool exercises and they do not anticipate any SW needs. Plan: SW to follow for likely pt d/c home tomorrow if medically stable via spouse POV. No SW needs at this time, please refer if indicated. MIKI De Souza Discharge Planning/Care Management CM Discharge Assessment Start: 05/19/19 14:16 Freq: Status: Active Protocol: Document 05/19/19 14:17 BF (Rec: 05/19/19 14:18 BF [id number]) Discharge Planning Assessment Assigned Stator Connector MIKI Carter DPOA/Assigned Designee Name Spouse Advance Directives? No Advance Directives on File No History Provided By Patient,Significant Other, Medical Record Has Patient been admitted in last 30 No days? Prior Living Arrangements House Household Members spouse Type of transporation used prior to Relies on Others admit Independent with ADL's Yes: mostly Is patient alert and oriented? Yes Needs Assistance With Home Chores / Shopping Caregiver for Another No DME Already Rented / Owned FWW / Walker Comment Likely home per PT recommendations Barriers to Discharge No Discharge Plan Home Transportation Arrangement Spouse and family bedside and can provide transport at d/c. Referrals Initiated None needed Whiteboard Updated in Patient Room with Yes name and ext. # of Stator Connector Review Status In Process Please Provide Date Initial DC 05/19/19 Assessment Was Performed Next Review Type Continued Stay Review
[2019-05-19] MEDS: ATORVASTATIN 20 MG TABLET PO (21:28)
--- NOTE | 2019-05-19 23:25 | PC.NURSE ---
c/o of R. elbow pain. gave T3 for pain. pt is incontinent. 1pa. call light in reach. bed alarm.
[2019-05-20 00:30] VITALS: BP 126/57; PULSE 90; RESP 15; TEMP 37.4; O2SAT 98
[2019-05-20] MEDS: CODEINE/ACETAMINOPHEN 30/300 TABLET 1 TAB PO ×2 (01:51→08:49)
[2019-05-20 04:00] VITALS: BP 117/63; PULSE 85; RESP 18; TEMP 36.8; O2SAT 96
[2019-05-20] MEDS: PANTOPRAZOLE 20 MG TABLET PO (06:04)
[2019-05-20 08:25] VITALS: BP 150/66; PULSE 76; RESP 20; TEMP 36.5; O2SAT 96
[2019-05-20] MEDS: FOLIC ACID 1 MG TABLET PO (08:48)
[2019-05-20] MEDS: HEPARIN 5,000 UNIT/ML VIAL 5000 UNIT SUBCUT (08:48)
[2019-05-20] MEDS: METOPROLOL IR 50 MG TABLET PO (08:48)
[2019-05-20] MEDS: ASPIRIN 81 MG CHEW TAB PO (08:48)
[2019-05-20] MEDS: predniSONE 1 MG TABLET PO (08:49)
--- NOTE | 2019-05-20 09:11 | P.DS_ITS ---
History of Present Illness History of Present Illness Date Patient Seen: 05/20/19 Time Patient Seen: 07:45 Chief complaint: cough Narrative: As per KAYLEIGH Hyman: The patient is an 84-year-old female with PMH of HTN, HLD, h/o breast cancer (s/p mastectomy, no h/o radiation or chemo), rheumatoid arthritis, chronic immuno suppressive therapy (on methotrexate, prednisone, and toclinizab infusions), chronic pain (2/2 degenerative joint disease, OA, and RA), chronic hyponatremia (baseline Na 130), and prior tobacco use (30 PYH, quit 1991). Patient has had a fall 5-6 months ago and suffered a severe fall w/ pelvic and hip fracture requiring surgical intervention. Patient presented to the ED on 05/18/2019 with a productive cough (+ white thick purulence). Symptoms initially noted two weeks ago, respectively. At that time having green purulence. She was evaluate and diagnosed w/ bronchitis. Patient does not recall a diagnosis of pneumonia. She was treated with a 5 day course of azithromycin (05/04-05/08 treated w/ azithromycin). She felt better, however continued to have cough with white phlegm w/o increasing purulence. In the past 3 days reports malaise, intermittent chills, nausea and dry heaving (no overt vomiting). On day of ED presentation felt short of breath. She denies worsening dyspnea with exertion; however, also notes that she has been sedentary and mobility has been diminished. She denies orthopnea, but does note difficulty laying in supine position in the last two weeks as it aggravated her cough. At baseline patient does not use oxygen. She denies AYALA, CP, palpitations, dizziness, lightheadedness or syncopal events. No hemoptysis, abdominal pain or GI distress. Reports good appetite and stable weight. Reports presence of stress incontinence and malodorous urine, w/o hematuria, dysuria or urinary frequency. At baseline ambulates with a walker. She has been receiving physical therapy in lieu of a fall and orthopedic intervention 5-6 months ago. Known to have RA. Currently treated with 8 mg of methotrexate every friday, 2 mg of prednisone daily, and tocilizumab (Actemra) infusion every 8 weeks. Her dose of methotrexate (went from 6 mg to 8 mg) and prednisone (went from 4 mg to 2 mg) recently adjusted. No known complications with prolonged methotrexate and prednisone therapy reported. Follows with military source operations specialist, Dr. Ramos, in [place]. Patient's PCP is Lara Castanon. UTD on influenza vaccination, received FLUAD [id number] on 03/31/2019. Discharge Providers Provider Date of admission: 05/18/19 23:51 Discharge Date: 05/20/19 Primary care physician: Lara Castanon MD Consults: 05/19/19 01:28 Consult to Dietitian, Adult Routine Comment: Reason For Exam: Reflexed from admission 05/19/19 05:57 Consult to Respiratory Therapy Evaluate & Treat Comment: Physician Instructions: Evaluate and treat 05/19/19 06:19 Consult to Physical Therapy Evaluate & Treat Comment: generalized weakness, deconditioning Physician Instructions: Evaluate and Treat Discharge provider: Denny Mercer DO Summary Hospital Course Discharge Diagnosis: 1. Acute respiratory failure wih hypoxia, present on admission, resolved 2. Sepsis, present on admission, acti ve 3. Type II myocardial infarction w/o ST elevation, acute, present on admission, active 4. Elevated liver enzymes, unknown chronicity, present on admission, active 5. Hyponatremia, chronic per review of records, present on admission, active / stable 6. Moderate protein calorie malnutrition, present on admission, active 7. Rheumatoid arthritis, chronic condition, present on admission, active / stable - 8. Chronic pain syndrome, present on admission, active / stable - controlled 9. Essential hypertension, chronic condition, present on admission, active / stable 10. Hyperlipidemia, chronic condition, present on admission, active / stable - controlled Hospital Course: The patient is an 84-year-old female with PMH of HTN, HLD, h/o breast cancer (s/p mastectomy, no h/o radiation or chemo), rheumatoid arthritis, chronic immuno suppressive therapy (on methotrexate, prednisone, and toclinizab infusions), chronic pain (2/2 degenerative joint disease, OA, and RA), chronic hyponatremia (baseline Na 130), and prior tobacco use (30 PYH, quit 1991) who was admitted for sepsis secondary to community-acquired pneumonia. She improved quite quickly after dose of Levaquin which should be continued for total 5 days. She was afebrile for 24 hours and was no longer hypoxic. Patient was deemed safe for discharge home today. 1. Acute respiratory failure wih hypoxia, present on admission, resolved - etiology is likely secondary to community-acquired pneumonia, patient has improved with Levaquin. - lactate, PCT, and RVP WNL - elevated BNP w/ interstitial edema / pulm congestion on CXR, however this may have been secondary to fluid resuscitation in the emergency room. She improved with 20 of Lasix but she showed no evidence of volume overload the next morning. Further her TTE did not show evidence of systolic or diastolic dysfunction. - on immunosuppression w/ medication w/ predisposition to pneumonitis and interstitial lung disease -TTE did show evidence new left ventricular hypertrophy, however no systolic or diastolic dysfunction. 2. Sepsis, present on admission, acti ve T 102.3F Tachypnea WBC 17.0 w/ organ dysfunction (ie acute respiratory failure) - SOFA score of 2 (respiratory) Lactate and PCT WNL. On 05/04/2019 treated w/ a 5 day course of azithromycin. RVP negative. CXR w/o acute findings, possible infiltrate on my read but difficult to tell given chronic appearance. - blood cx (collected in ED), no growth to date - sputum cx (collected in ED), mixed resident tram - patient is immunocompromised due to h/o RA - supportive care: anti-emetics, analgesics -continue Levaquin 750 mg for 5 day course. Given her creatinine clearance her dosing is q48 hours. She will take her 2nd dose tonight at home, and final dose 05/22. 3. Type II myocardial infarction w/o ST elevation, acute, present on admission, active - Sx of hypoxia and dyspnea, no active CP - Suspected to be in the setting of an acute respiratory failure secondary to pulmonary vascular congestion and/or pneumonia - Trop 0.056 EKG non-ischemic, non-specific ST-T changes w/o overt depression, no pathological Q-waves. 4. Elevated liver enzymes, unknown chronicity, present on admission, active - AST 65 and ALT 45, mild elevation. No abdominal pain. Bilirubin WNL. Stable on repeat the following day. Follow up with PMD, unclear if this is chronic el evation or not. 5. Hyponatremia, chronic per review of records, present on admission, active / stable - Na 128 (baseline 130) improved to 131 and stopped trending 6. Moderate protein calorie malnutrition, present on admission, active 84 y.o BMI 17.7 w/ moderate loss of body fat and diminished physical function 7. Rheumatoid arthritis, chronic condition, present on admission, active / stable -patient did have TTE showing new left ventricular hypertrophy, this may be related to patient's rheumatoid disease. She should follow up with her military source operations specialist. - Resume AQUATIC SCIENTIST regimen of prednisone and methotrexate - On tocilizumab (Actemra) infusions every 8 weeks, last on 05/14/2019 - outpatient follow up with her military source operations specialist. 8. Chronic pain syndrome, present on admission, active / stable - controlled Multi-factorial: RA, OA, DJD, cervical radiculopathy, scoliosis, and chronic ramus fx - continue tylenol w/ codeine 9. Essential hypertension, chronic condition, present on admission, active / stable -patient's home medications were initially held given sepsis, metoprolol was initiated 1st given left ventricular hypertrophy on echocardiogram. Patient was hypertensive on day of discharge and enalapril was resumed. 10. Hyperlipidemia, chronic condition, present on admission, active / stable - controlled - Controlled w/ atorvastatin 20 mg QHS, resume AQUATIC SCIENTIST regimen Dispo: Discharge home. Exam Vital Signs (past 8 hours): - 05/20/19 04:00 05/20/19 08:25 Temperature 98.3 F 97.7 F Pulse Rate 85 76 Respiratory Rate 18 20 Blood Pressure 117/63 150/66 H Pulse Oximetry 96 96 Oxygen Delivery Method Room Air Oxygen Flow Rate 0 Narrative Exam Narrative: GENERAL APPEARANCE: Elderly female, no acute distress, breathing comfortably on room air SKIN: Inspection of the skin reveals no rashes, ulcerations or petechiae. HEENT: Lips, teeth, and gums showed normal mucosa. The oral mucosa, hard and s oft palate, tongue and posterior pharynx were unremarkable. NECK: Supple and symmetric. There was no thyroid enlargement, and no tenderness, or masses were felt. CHEST: Normal AP diameter and normal contour without any kyphoscoliosis. LUNGS: Auscultation of the lungs revealed no wheezes, rhonchi, or rales. CARDIOVASCULAR: There was a regular rate and rhythm without any murmurs, gallops, rubs. Peripheral pulses were 2+ and symmetric. ABDOMEN: Soft and nontender with normal bowel sounds. No ascites was noted. MUSCULOSKELETAL: There is mild tenderness in multiple joints, she has rheumatoid deformities of her bilateral hands. EXTREMITIES: No cyanosis, clubbing or edema. NEUROLOGIC: Alert and oriented x 3. Normal affect. Gait was normal. Strength is +5/5 in the Upper Extremities and Lower Extremities Bilaterally. Sensation to touch was normal. Objective Labs Result Diagrams: 05/19/19 05:24 05/19/19 05:24 Discharge Plan Discharge Plan Patient Disposition: Home Discharge comment: You were admitted to the hospital with sepsis due to community-acquired pneumonia. You improved with Levaquin. You should take 2 additional doses at home, once tonight and again on Friday evening. Discharge Med Rec/Prescriptions Prescriptions: New levofloxacin [Levaquin] 750 mg tablet 750 mg PO Q48H 3 Days Qty: 2 RF: 0 Continued atorvastatin [Lipitor] 20 MG tablet 20 mg PO HS Qty: 0 RF: 0 enalapril maleate 2.5 MG tablet 2.5 mg PO QDAY Qty: 0 RF: 0 folic acid 1 MG tablet 1 mg PO QDAY Qty: 0 RF: 0 calcium carbonate [Calcium 500] 500 MG tablet 1 tab PO DAILY Qty: 0 RF: 0 polyethylene glycol 3350 [Miralax] 17 GM powder in packet 17 gm PO QDAY Qty: 1 RF: 0 acetaminophen-codeine 300-15 mg Tablet 1 tab PO Q4H PRN (Reason: Pain (Scale Score 1-3)) RF: 0 methotrexate sodium 2.5 mg Tablet 2.5 mg PO QWEEK RF: 0 metoprolol tartrate 50 mg Tablet 50 mg PO DAILY RF: 0 omeprazole 20 mg Capsule,Delayed Release(Dr/Ec) 20 mg PO DAILY RF: 0 aspirin 81 mg Tablet,Chewable 81 mg PO DAILY RF: 0 prednisone 1 mg tablet,delayed release (DR/EC) 1 mg PO DAILY RF: 0 Follow up/Referrals: Lara Castanon MD [Primary Care Provider] - Provider Discharge Instructions Diet: Diet as Tolerated Activity: As tolerated Skin/Wound/Dressing Care Report to your healthcare provider any signs of infection, such as:: chills, fever Discharge Data Primary Care Provider: Lara Castanon Quality VTE Deep Vein Thrombosis/Pulmonary Embolism Present on Admission: No
[2019-05-20 09:33] VITALS: BP 150/66
[2019-05-20] MEDS: ENALAPRIL 5 MG TABLET 2.5 MG PO (09:33)
--- NOTE | 2019-05-20 11:27 | PT.IPTN ---
Addendum entered and electronically signed by Marah Rutherford PTA 05/20/19 12:15: Pt was up in chair when left room, and grand daughter in room, call light and needs with in reach and alarm reapplied at 1127 am. Original Note: Physical Therapy Treatment Note M2 PT-IP Current Condition Start: 05/19/19 12:29 Freq: NEEDED Status: Active Protocol: Document 05/19/19 11:30 AB (Rec: 05/19/19 12:43 AB [id number]) Physical Therapy Current Condition Current Condition Evaluation Date 05/19/19 Treatment Diagnosis PNA; difficulty in walking Onset Date 05/18/19 Precautions Other Precautions falls M3 PT-IP Subjective Start: 05/19/19 12:29 Freq: NEEDED Status: Active Protocol: Document 05/20/19 11:27 SP (Rec: 05/20/19 11:51 SP [id number]) Subjective Physical Therapy Visit Type Type Treatment Note Visit Start Time 10:56 Visit Stop Time 11:27 Total Visit Minutes 31 Physical Therapy Visit Comments Patient Comments Pt agreeable to PT today. Patient Goals Waiting to go home. M4 PT-IP Mobility and Gait Start: 05/19/19 12:29 Freq: NEEDED Status: Active Protocol: Document 05/20/19 11:27 SP (Rec: 05/20/19 11:51 SP [id number]) PT-Transfer Assessment Sit to and From Stand Sit to and from Stand Contact Guard Assistance,1 Person Assistance,Use of Upper Extremities Equipment Transfer Assistive Device Gait Belt,Front Wheeled Walker Orthotic/Prosthetic Devices or Brace: No Transfers Transfer Destination Chair Transfer Technique Pt ambulate using FWW Transfer Ability Level of Assist Contact Guard Assistance Comments Mobility Comments Pt was able to complete sit <> stand with use of BUE to stand and reaching back to sit , cued for backing up full until feel chair behind knees prior to sitting and FWW positioning for safety. Gait Assessment Gait Gait Assistance Required: Contact Guard Assist Distance (Feet) 590 Able to Maintain Weight Bearing Status Yes During Gait Assistive Devices Assistive Device Gait Belt,Front Wheeled Walker Orthotic/Prosthetic Devices or Brace: No Gait Deviations General Gait Pattern Antalgic,Decreased Stride Length,Decreased Feet Clearance,Flexed Trunk,Narrow Based Gait Factors Limiting Gait Function Factors Limiting Gait Function Decreased Activity Tolerance, Decreased Strength,Limited Range of Motion,Pain,Poor Balance,Poor Safety Awareness Comments Gait Comments Pt demonstrated step to and step over step gait, cued for body spacial awareness closer to FWW, occasional scissor stepping when took RUE off FWW to wipe nose, deviation in wt shift to R but self recovery, CGA. Cued for upright posture . Stair Climbing Assessment Evaluation Level of Assist On Stairs Contact Guard Assistance,1 Person Assistance Devices Stair Climbing Assistive Devices Right Railing Technique/Endurance Stair Climbing Direction Ascend and Descend Stair Climbing Technique Step to Step Number of Steps Climbed 3 Stair Climbing Set # Repetitions (reps) 4 Comments Stair Climbing Comments Pt was able to complete stair management using just RHR with BUE (LHR only goes 1/2 [address] up stairs at home), step to patterning RLE stronger ascending descending but does pattern leading either LE with no LOB. Recommended to to install LHR to extend up full length of stairs for increased safety and energy conservation. PT-Balance Assessment Sitting Balance and Reactions Static Sitting Balance Ability Good Dynamic Sitting Balance Ability Good Standing Balance and Reactions Static Standing Balance Ability Fair Dynamic Standing Balance Ability Fair Device Used FWW M5 PT-IP Objective Assessments Start: 05/19/19 12:29 Freq: NEEDED Status: Active Protocol: Document 05/19/19 11:30 AB (Rec: 05/19/19 12:43 AB [id number]) Orientation Orientation/Cognition Level of Alertness Alert Orientation Name Safety Awareness Decreased Safety Awareness Memory Description Short Term Impaired Comments with confusion Strength Lower Extremity Strength Hip 4-/5 Knee 4-/5 Muscle Tone Muscle Tone WNL Yes M6 PT-IP Treatment Start: 05/19/19 12:29 Freq: NEEDED Status: Active Protocol: Document 05/20/19 11:27 SP (Rec: 05/20/19 11:51 SP [id number]) Physical Therapy Treatment Education Education Provided Safety M7 PT-IP Assessment and Plan Start: 05/19/19 12:29 Freq: NEEDED Status: Active Protocol: Document 05/20/19 11:27 SP (Rec: 05/20/19 11:51 SP [id number]) PT Summary Assessment and Plan Potential Rehabilitation Potential Good Status of Condition at Evaluation Stable Summary Impairments Pain,ROM,Strength,Balance, Coordination,Sensation,Tone, Cognition,Bed Mobility, Transfers,Gait,Activity Tolerance Assessment Summary Pt required SBA-CGA with mobility. Pt plang to go home with spouse to assist her. Pt was able to complete stair management with CGA RHR 12 stairs, gait SBA-CGA with noted deviation to R and scissor step when tried to wipe nose with RUE self recovery cued to stop then complete for safety with balance, cued for body positioning closer to fWW and upright posture, improvement in endurance gait 590ft. Goals Bed Mobility Goal Independent Transfer Goal Independent,Cane,Front Wheeled Walker Gait Goal Independent,Cane,Front Wheel Walker Gait Distance 200 Other Goals up/down 13 steps R rail descending SBA Days to Meet Goals 5 Frequency of Treatment Frequency Of Treatment Once a Day Treatment Plan Physical Therapy Treatment Plan Bed Mobility Training,Transfer Training,Gait Training, Therapeutic Exercise,Balance Retraining,Discharge Planning, Hot or Cold Pack,Neuromuscular Re-ed,Coordination Retraining ,Manual Therapy Other Recommendations and Next Treatment ambulation; stair climbing Focus Recommendations To Nursing Amount of Assist Needed 1 Person Assist Discharge Recommendations PT Discharge Recommendations Home with Assistance
--- NOTE | 2019-05-20 12:01 | PC.NURSE ---
Pt is dressed and ready for discharge home with Spouse and Family. HL removed. Pt reviewed d/c instructions - discussed d/c meds, time of last dose, reviewed stroke education, activity, follow up, and when to call MD for symptom worsening. Pt denies further questions and was taken out via w/c by [employer] CLERK with family and all belongings.
== END 2019-05-20 12:03 | disposition home or self-care (01) | DRG 193 ==
LOC: ED 23:48 → AC 23:55
PROVIDERS: Admitting Provider Nurse Practitioner Gerontology; Emergency Provider Emergency Medicine; Family Provider Internal Medicine; PCP Internal Medicine; Visit Provider Nurse Practitioner Gerontology
DX: J18.9 Pneumonia, unspecified organism (principal); J96.01 Acute respiratory failure with hypoxia; E87.1 Hypo-osmolality and hyponatremia; E44.0 Moderate protein-calorie malnutrition; Z68.1 Body mass index [BMI] 19.9 or less, adult; R79.89 Other specified abnormal findings of blood chemistry; M06.9 Rheumatoid arthritis, unspecified; G89.29 Other chronic pain; I10 Essential (primary) hypertension
CPT/HCPCS: 36415; 71045; 71046; 80053; 81001; 83605; 83690; 83735; 83880; 84145; 84484; 85025; 87040; 87070; 87205; 87633; 93005; 93010; 93306; 94762; 96361; 96365; 96375; 97116; 97161; 97530; 99284; 99285; J1644; J1940; J1956; J2405

== ENCOUNTER 2020-10-07 16:38 | Inpatient (IN) | payer MEDICARE, OTHER, SELFPAY ==
[2019-05-19 01:03] VITALS: BMI 17.6
[2020-10-07] VITALS (30 sets, daily range): BP systolic 114–229; BP diastolic 61–116; PULSE 75–97; RESP 14–18; TEMP 37.9; O2SAT 89–99; BMI 17.6
--- NOTE | 2020-10-07 16:59 | DI.RAD.S_ITS ---
PROCEDURE: XR CHEST 1V INDICATIONS: suspected sepsis TECHNIQUE: One view of the chest was acquired. COMPARISON: [facility], CR, XR CHEST 2V, 05/19/2019, 9:17. FINDINGS: Surgical changes and devices: None. Lungs and pleura: Minimal areas of increased vascularity. No pleural effusions or pneumothorax. Mediastinum: Mediastinal contours appear normal. Heart size is enlarged. Bones and chest wall: No suspicious bony lesions. Overlying soft tissues appear unremarkable. Prominent scoliotic curvature. IMPRESSION: Cardiomegaly. No effusions or consolidations. Minimal scattered areas of increased vascularity suggestive of edema. Dictated by: Sol Koenig M.D. on 10/07/2020 at 20:33 Approved by: Sol Koenig M.D. on 10/07/2020 at 20:34
[2020-10-07 17:30] LABS: Add Manual Diff / Slide Review NO; Basophils Absolute Auto 100 /uL (0-100); Basophils Percent Auto 0.4 % (0-2); Eosinophils Absolute Auto 0 /uL (0-450); Eosinophils Percent Auto 0.1 % (2-4); Hematocrit 29.1 % (36-46); Hemoglobin 9.3 g/dL (12.0-16.0); Lymphocytes Absolute Auto 900 /uL (1100-4500); Lymphocytes Percent Auto 4.2 % (25-40); Mean Corpuscular HGB Conc 31.9 % (30-36); Mean Corpuscular Hemoglobin 29.9 PG (26-34); Mean Corpuscular Volume 93.9 fL (80-100); Monocytes Absolute Auto 1700 /uL (0-900); Monocytes Percent Auto 7.8 % (3-14); Neutrophils Absolute Auto 19000 /uL (1500-7000); Neutrophils Percent Auto 87.5 % (50-75); Platelet Count 218 X10^3/uL (150-400); Red Cell Distribution Width 16.1 % (11.6-14.8); White Blood Cell Count 21.7 X10^3/uL (4.5-11.0)
[2020-10-07 17:31] LABS: INR 1.2 (0.9-1.3); Prothrombin Time 13.5 SECONDS (10.1-12.7)
[2020-10-07 17:33] LABS: PTT Partial Thromboplastin Tim 25 SECONDS (26.4-36.2)
[2020-10-07 17:37] LABS: Alanine Aminotransferase 34 IU/L (<35); Albumin 4.2 g/dL (3.5-5.0); Albumin Globulin Ratio 1.7 (1.0-2.8); Alkaline Phosphatase 66 U/L (38-126); Aspartate Aminotransferase 39 IU/L (14-36); BUN Creatinine Ratio 30.8 (6-22); Bilirubin Total 0.6 mg/dL (0.2-1.3); Blood Urea Nitrogen 8 mg/dL (7-17); Calcium 9.6 mg/dL (8.4-10.2); Carbon Dioxide 27 mmol/L (22-32); Chloride 92 mmol/L (98-107); Estimated Glomerular Filt Rate > 60.0 mL/min (>60); Globulin 2.5 g/dL (1.7-4.1); Glucose 123 mg/dL (80-110); HEMOLYSIS 20 (0-50); Lactate (Lactic Acid) 1.8 mmol/L (0.7-2.1); Lipase 36 U/L (23-300); Potassium 3.7 mmol/L (3.4-5.1); Sodium 128 mmol/L (137-145); Total Protein 6.7 g/dL (6.3-8.2)
[2020-10-07 17:54] LABS: Procalcitonin 0.06 ng/mL (<0.5)
[2020-10-07 18:35] LABS: Bacteria Urine None Seen
[2020-10-07 18:37] LABS: Appearance Urine UA CLEAR; Bilirubin Urine UA NEGATIVE (NEGATIVE); Color Urine UA YELLOW; Glucose Urine UA NEGATIVE (Negative); Ketones Urine UA 1+ (NEGATIVE); Leukocyte Esterase Urine UA NEGATIVE (NEGATIVE); Nitrite Urine UA NEGATIVE (Negative); Occult Blood Urine UA TRACE-INTACT (Negative); Protein Urine UA 1+ (Negative); Urobilinogen Urine UA 0.2 E.U./dL (0.2)
[2020-10-07] MEDS: SODIUM CHLORIDE 0.9% 1,000 ML 1000 ML IV (18:43)
[2020-10-07 19:02] LABS: Culture Indicated Urine Cult Not Indicated; RBC Urine 0-1/HPF (0-5/HPF); Squamous Epithelial Cell Urine None Seen (0-5/HPF); WBC Urine 0-1/HPF (0-5/HPF)
[2020-10-07 19:47] LABS: COVID19 - ADMIT (NP swab/PCR) Negative (Negative)
--- NOTE | 2020-10-07 19:54 | DI.CT.S_ITS ---
PROCEDURE: CT ABDOMEN PELVIS W CON INDICATIONS: abdominal pain and delerium TECHNIQUE: After the administration of oral and intravenous contrast, 5 mm thick sections acquired from the diaphragms to the symphysis. 5 mm thick coronal and sagittal reformats were performed. For radiation dose reduction, the following was used: automated exposure control, adjustment of mA and/or kV according to patient size. COMPARISON: None. FINDINGS: Image quality: Portions of the lower pelvis are suboptimally evaluated secondary to metallic streak artifact from pelvic fixation hardware. ABDOMEN: Lung bases: Lung bases are clear. Heart size is enlarged. Solid organs: Liver is mildly enlarged with steatosis. Gallbladder is unremarkable. Biliary system is non-dilated. Pancreas enhances normally. Spleen is normal in size and enhancement. No adrenal nodules. Kidneys are normal in size and enhancement, without hydronephrosis. Peritoneum and bowel: Stomach, small bowel, and colon loops are normal in caliber and wall thickness. No free fluid or air. Significant stool is present without obstruction. Nodes and vessels: No retroperitoneal or mesenteric adenopathy. Aorta and inferior vena cava are normal in caliber. Miscellaneous: No ventral hernias. PELVIS: Genitourinary: Bladder wall thickness is normal. Miscellaneous: No inguinal hernias or adenopathy. Bones: No suspicious bony lesions. No vertebral body compression fractures. Scoliotic curvature is present. Old left inferior pubic ramus fracture. Left iliac and pubic ramus fixation. IMPRESSION: 1. Significant stool consistent constipation. No obstruction. 2. Hepatomegaly with steatosis. Dictated by: Sol Koenig M.D. on 10/07/2020 at 20:55 Approved by: Sol Koenig M.D. on 10/07/2020 at 20:58
--- NOTE | 2020-10-07 19:56 | ED.GENADULT ---
HPI - General Adult General Chief complaint: Fever Stated complaint: BODY ACHES/NOT SLEEPING Time Seen by Provider: 10/07/20 19:44 History of Present Illness HPI narrative: 85-year-old woman with a history of arthritis on chronic prednisone and immunotherapy, chronic pain syndrome, hypertension, hyperlipidemia who presents with general malaise and increasing delirium. Her pain was so much this week that she missed her weekly rheumatoid arthritis infusion which is exacerbating the rheumatoid arthritis pain. She complains of increasing shortness of breath and was recently prescribed an inhaler however her rheumatoid arthritis is severe enough that she can not physically manipulate the MDI. She does not feel that the albuterol influenced her dyspnea much. Last night she complains that she had difficulty speaking in full sentences because of the dyspnea. She also notes that she has not been able to sleep difficulty overall increased pain. She does not report fevers, abdominal pain, orthopnea or increased lower extremity edema. She has not had vomiting or diarrhea. She denies dysuria or flank pain. She has no headache nor nuchal rigidity Related Data Home Medications Medication Instructions Recorded Confirmed atorvastatin [Lipitor] 20 mg PO HS #0 10/24/16 10/08/20 calcium carbonate [Calcium 500] 1 tab PO DAILY #0 10/24/16 05/19/19 enalapril maleate 2.5 mg PO QDAY #0 10/24/16 10/08/20 folic acid 1 mg PO QDAY #0 10/24/16 10/08/20 prednisone 1 mg tablet,delayed 1 mg PO DAILY 03/06/18 10/08/20 release acetaminophen-codeine 1 tab PO Q4H PRN 05/19/19 10/08/20 aspirin 81 mg PO DAILY 05/19/19 10/08/20 methotrexate sodium 2.5 mg PO QWEEK 05/19/19 10/08/20 metoprolol tartrate 50 mg PO DAILY 05/19/19 10/08/20 omeprazole 20 mg PO DAILY 05/19/19 10/08/20 acetaminophen 650 mg PO Q6H PRN 10/08/20 10/08/20 Allergies Allergy/AdvReac Type Severity Reaction Status Date / Time No Known Drug Allergies Allergy Verified 05/18/19 22:49 Review of Systems Review of Systems Narrative: Remainder of review of systems including constitutional, ENT, cardiovascular, respiratory, GI, , musculoskeletal, skin, neurologic and psychiatric systems reviewed and are unremarkable except as noted in HPI. Patient History Medical History Chicken pox (1945) Chronic pain syndrome Constipation Essential hypertension Hyperlipidemia Hyponatremia Measles (1946) Osteoarthritis (2000) Pubic ramus fracture Rheumatoid arthritis (1988) Scoliosis (and kyphoscoliosis), idiopathic Spinal stenosis at L4-L5 level Surgical History H/O mastectomy S/P bilateral foot surgery Status post hip surgery (~12/2018) Family History Father Heart disease Grandfather Heart disease Grandmother Diabetes mellitus Social History household members: spouse Smoking Status: Former smoker alcohol intake: current Smoking Status: Former smoker alcohol intake frequency: holidays/special occasions only Substance Use Type: does not use Exam Narrative Exam Narrative: General: Frail, in significant distress. Hard of hearing, having difficulty lying still on the stretcher writhing back and forth trying to find a comfortable position HEENT: Dry mucous membranes, normal sclera with reactive pupils, Neck: No JVD, supple Respiratory: Lungs are clear to auscultation, no wheezing no rales no rhonchi. Full and symmetrical air movement Cardiac: Regular rate and rhythm no murmurs no bruits Abdomen: Soft, mild diffuse tenderness without rebound or guarding, good bowel tones, no flank pain Skin: Warm and dry, multiple bruises and very thin Neurologic: Grossly neurologically intact with no obvious asymmetries or abnormalities Extremities: Multiple sequelae of rheumatoid arthritis, no evidence of abscess or cellulitis Psych: Cooperative, difficulty in focusing and slight confusion Initial Vital Signs Initial Vital Signs: Vital Signs Temperature 100.3 F H 10/07/20 16:52 Pulse Rate 92 H 10/07/20 16:52 Respiratory Rate 18 10/07/20 16:52 Blood Pressure 188/87 H 10/07/20 16:52 Pulse Oximetry 97 10/07/20 16:52 Course Orders Ordered: Acetaminophen (Acetaminophen 325 Mg Tablet) 650 mg PO Q4HR PRN PRN Reason: Fever/Mild Pain (1-3) Last Admin: 10/08/20 02:14 Dose: 650 mg Documented by: JOSE Atorvastatin Calcium (Atorvastatin 20 Mg Tablet) 20 mg PO BEDTIME [facility] Last Admin: 10/08/20 05:22 Dose: 20 mg Documented by: JOSE Bisacodyl (Bisacodyl 10 Mg Supp) 10 mg SC DAILY PRN PRN Reason: Constipation Docusate Sodium (Docusate 100 Mg Capsule) 100 mg PO BID [facility] Enalapril Maleate (Enalapril 5 Mg Tablet) 2.5 mg PO DAILY [facility] Enoxaparin Sodium (Enoxaparin 40 Mg/0.4 Ml Syringe) 40 mg SUBCUT DAILY [facility] Hydromorphone HCl (Hydromorphone 0.5 Mg Inj) 0.5 mg IV Q6H PRN PRN Reason: Pain, Severe (7-10) Piperacillin/Tazobactam/Dextrose (Zosyn) 3.375 gm in 50 mls @ 100 mls/hr IV Q6H [facility] Last Infusion: 10/08/20 02:30 Dose: 0 mls/hr Documented by: Admin: 10/08/20 01:07 Dose: 100 mls/hr Documented by: JOSE Magnesium Oxide (Magnesium Oxide 400 Mg Tablet) 400 mg PO DAILY FIDELIA Stop: 10/08/20 09:01 Last Admin: 10/08/20 01:59 Dose: 400 mg Documented by: JOSE Metoprolol Tartrate (Metoprolol Ir 50 Mg Tablet) 50 mg PO DAILY [facility] Naloxone HCl (Naloxone 0.4 Mg/Ml Vial) 0.2 mg IV Q2MIN PRN PRN Reason: Opiate Reversal Ondansetron HCl (Ondansetron 4 Mg/2 Ml Inj) 4 mg IV Q8HR PRN PRN Reason: Nausea And Vomiting Pantoprazole Sodium (Pantoprazole 40 Mg Vial) 20 mg IV DAILY [facility] Polyethylene Glycol (Polyethylene Glycol 3350 17 Gm Powd.Pack) 17 gm PO DAILY [facility] Polyethylene Glycol (Polyethylene Glycol 3350 17 Gm Powd.Pack) 17 gm PO DAILY [facility] Prednisone (Prednisone 1 Mg Tablet) 1 mg PO DAILY [facility] Tramadol HCl (Tramadol 50 Mg Tablet) 50 mg PO QID PRN PRN Reason: Pain, Moderate (4-6) Discontinued Medications Bisacodyl (Bisacodyl 10 Mg Supp) 10 mg SC NOW ONE Stop: 10/08/20 02:30 Last Admin: 10/08/20 04:32 Dose: 10 mg Documented by: JOSE Hydrocortisone (Hydrocortisone 100 Mg/2 Ml Vial) 100 mg IV NOW ONE Stop: 10/07/20 19:54 Last Admin: 10/07/20 20:14 Dose: 100 mg Documented by: TRISTIAN Hydromorphone HCl (Hydromorphone 0.5 Mg Inj) 0.5 mg IV Q15MIN PRN PRN Reason: Pain, Hydromorphone HCl (Hydromorphone 1 Mg Inj) 1 mg IV NOW ONE Stop: 10/07/20 19:54 Last Admin: 10/07/20 20:14 Dose: 1 mg Documented by: TRISTIAN Sodium Chloride (Normal Saline 0.9%) 1,000 mls @ 1,000 mls/hr IV BOLUS ONE Stop: 10/07/20 17:58 Last Infusion: 10/07/20 21:20 Dose: 0 mls/hr Documented by: Admin: 10/07/20 18:43 Dose: 1,000 mls/hr Documented by: ELPIDIO Piperacillin Sod/Tazobactam (Sod 4.5 gm/ Sodium Chloride) 100 mls @ 200 mls/hr IV NOW ONE Stop: 10/07/20 19:54 Last Infusion: 10/07/20 21:11 Dose: 0 mls/hr Documented by: Admin: 10/07/20 20:14 Dose: 200 mls/hr Documented by: TRISTIAN Azithromycin 500 mg/ Dextrose 250 mls @ 250 mls/hr IV Q24H [facility] Last Admin: 10/08/20 02:51 Dose: Not Given Documented by: JOSE Magnesium Oxide (Magnesium Oxide 400 Mg Tablet) 400 mg PO DAILY FIDELIA Stop: 10/08/20 09:01 Last Admin: 10/08/20 02:51 Dose: Not Given Documented by: JOSE Non-Formulary Medication (Prednisone) 1 mg PO DAILY [facility] Pantoprazole Sodium (Pantoprazole 40 Mg Vial) 40 mg IV NOW ONE Stop: 10/07/20 23:50 Last Admin: 10/08/20 01:58 Dose: 40 mg Documented by: JOSE Pantoprazole Sodium (Pantoprazole 40 Mg Vial) 40 mg IV NOW ONE Stop: 10/08/20 02:01 Last Admin: 10/08/20 02:48 Dose: Not Given Documented by: JOSE Potassium Chloride (Potassium Chloride 20 Meq Tab) 40 meq PO NOW ONE Stop: 10/07/20 23:50 Last Admin: 10/08/20 01:59 Dose: 40 meq Documented by: JOSE Potassium Chloride (Potassium Chloride 20 Meq Tab) 40 meq PO NOW ONE Stop: 10/08/20 02:01 Last Admin: 10/08/20 02:48 Dose: Not Given Documented by: JOSE Sodium Biphosphate/Sodium Phosphate (Fleets Enema) 1 each SC NOW ONE Stop: 10/08/20 02:30 Last Admin: 10/08/20 03:48 Dose: 1 each Documented by: JOSE Vital Signs Vital signs: Vital Signs - 8 hr 10/07/20 16:52 10/07/20 18:28 10/07/20 18:30 Temperature 100.3 F H Pulse Rate 92 H 84 79 Respiratory Rate 18 Blood Pressure 188/87 H 181/77 H Pulse Oximetry 97 94 95 10/07/20 18:40 10/07/20 18:50 10/07/20 19:00 Temperature Pulse Rate 86 90 89 Respiratory Rate Blood Pressure 195/82 H 208/88 H 200/84 H Pulse Oximetry 95 94 94 10/07/20 19:30 10/07/20 19:51 10/07/20 20:00 Temperature Pulse Rate 90 86 79 Respiratory Rate Blood Pressure 169/116 H 114/83 229/95 H Pulse Oximetry 94 92 91 10/07/20 20:10 10/07/20 20:20 10/07/20 20:30 Temperature Pulse Rate 78 86 84 Respiratory Rate 14 16 Blood Pressure 203/88 H 194/86 H 191/86 H Pulse Oximetry 93 89 L 97 10/07/20 20:46 10/07/20 20:50 10/07/20 21:00 Temperature Pulse Rate 87 85 82 Respiratory Rate Blood Pressure 192/88 H 176/81 H 173/77 H Pulse Oximetry 98 98 99 Medical Decision Making Medical Records Medical records reviewed: Yes I reviewed the patient's medical records. Lab Data Lab results reviewed: Yes I reviewed the patient's lab results. Result diagrams: 10/08/20 05:25 03/28/21 05:25 Labs: Lab Results 10/07/20 10/07/20 10/07/20 Range/Units 17:11 17:11 17:11 WBC 21.7 H (4.5-11.0) X10^3/uL RBC 3.10 L (4.0-5.2) X10^6/uL Hgb 9.3 L (12.0-16.0) g/dL Hct 29.1 L (36-46) % MCV 93.9 (80-100) fL MCH 29.9 (26-34) PG MCHC 31.9 (30-36) % RDW 16.1 H (11.6-14.8) % Plt Count 218 (150-400) X10^3/uL Neut % (Auto) 87.5 H (50-75) % Lymph % (Auto) 4.2 L (25-40) % Mitchell % (Auto) 7.8 (3-14) % Eos % (Auto) 0.1 L (2-4) % Baso % (Auto) 0.4 (0-2) % Neut # (Auto) 23994 H (3015-7886) /uL Lymph # (Auto) 900 L (1329-8485) /uL Mitchell # (Auto) 1700 H (0-900) /uL Eos # (Auto) 0 (0-450) /uL Baso # (Auto) 100 (0-100) /uL PT 13.5 H (10.1-12.7) SECONDS INR 1.2 (0.9-1.3) APTT 25 L (26.4-36.2) SECONDS Sodium 128 L (137-145) mmol/L Potassium 3.7 (3.4-5.1) mmol/L Chloride 92 L (98-107) mmol/L Carbon Dioxide 27 (22-32) mmol/L BUN 8 (7-17) mg/dL Creatinine 0.26 L (0.52-1.04) mg/dL Estimated GFR > 60.0 (>60) mL/min BUN/Creatinine Ratio 30.8 H (6-22) Glucose 123 H (80-110) mg/dL Lactate (0.7-2.1) mmol/L Calcium 9.6 (8.4-10.2) mg/dL Magnesium (1.6-2.3) mg/dL Total Bilirubin 0.6 (0.2-1.3) mg/dL AST 39 H (14-36) IU/L ALT 34 (<35) IU/L Alkaline Phosphatase 66 (38-126) U/L Troponin I (0.01-0.034) ng/mL NT-Pro-B Natriuret Pep (<450) pg/mL Total Protein 6.7 (6.3-8.2) g/dL Albumin 4.2 (3.5-5.0) g/dL Globulin 2.5 (1.7-4.1) g/dL Albumin/Globulin Ratio 1.7 (1.0-2.8) Lipase 36 (23-300) U/L Procalcitonin 0.06 (<0.5) ng/mL Urine Color Urine Appearance Urine pH (4.5-8.0) Ur Specific Rigby (1.000-1.035) Urine Protein (Negative) Urine Glucose (UA) (Negative) g/dL Urine Ketones (NEGATIVE) Urine Occult Blood (Negative) Urine Nitrate (Negative) Urine Bilirubin (NEGATIVE) Urine Urobilinogen (0.2) E.U./dL Ur Leukocyte Esterase (NEGATIVE) Urine RBC (0-5/HPF) Urine WBC (0-5/HPF) Ur Squamous Epith Cells (0-5/HPF) Urine Bacteria (None) Ur Culture Indicated? SARS-CoV-2 (PCR) (Negative) 10/07/20 10/07/20 10/07/20 Range/Units 17:11 17:11 18:27 WBC (4.5-11.0) X10^3/uL RBC (4.0-5.2) X10^6/uL Hgb (12.0-16.0) g/dL Hct (36-46) % MCV (80-100) fL MCH (26-34) PG MCHC (30-36) % RDW (11.6-14.8) % Plt Count (150-400) X10^3/uL Neut % (Auto) (50-75) % Lymph % (Auto) (25-40) % Mitchell % (Auto) (3-14) % Eos % (Auto) (2-4) % Baso % (Auto) (0-2) % Neut # (Auto) (5766-4370) /uL Lymph # (Auto) (3804-5676) /uL Mitchell # (Auto) (0-900) /uL Eos # (Auto) (0-450) /uL Baso # (Auto) (0-100) /uL PT (10.1-12.7) SECONDS INR (0.9-1.3) APTT (26.4-36.2) SECONDS Sodium (137-145) mmol/L Potassium (3.4-5.1) mmol/L Chloride (98-107) mmol/L Carbon Dioxide (22-32) mmol/L BUN (7-17) mg/dL Creatinine (0.52-1.04) mg/dL Estimated GFR (>60) mL/min BUN/Creatinine Ratio (6-22) Glucose (80-110) mg/dL Lactate 1.8 (0.7-2.1) mmol/L Calcium (8.4-10.2) mg/dL Magnesium 1.6 (1.6-2.3) mg/dL Total Bilirubin (0.2-1.3) mg/dL AST (14-36) IU/L ALT (<35) IU/L Alkaline Phosphatase (38-126) U/L Troponin I 0.038 H (0.01-0.034) ng/mL NT-Pro-B Natriuret Pep 5790 H (<450) pg/mL Total Protein (6.3-8.2) g/dL Albumin (3.5-5.0) g/dL Globulin (1.7-4.1) g/dL Albumin/Globulin Ratio (1.0-2.8) Lipase (23-300) U/L Procalcitonin (<0.5) ng/mL Urine Color Yellow Urine Appearance Clear Urine pH 7.0 (4.5-8.0) Ur Specific Rigby 1.020 (1.000-1.035) Urine Protein 1+ H (Negative) Urine Glucose (UA) Negative (Negative) g/dL Urine Ketones 1+ H (NEGATIVE) Urine Occult Blood Trace-intact (Negative) Urine Nitrate Negative (Negative) Urine Bilirubin Negative (NEGATIVE) Urine Urobilinogen 0.2 (0.2) E.U./dL Ur Leukocyte Esterase Negative (NEGATIVE) Urine RBC 0-1/hpf (0-5/HPF) Urine WBC 0-1/hpf (0-5/HPF) Ur Squamous Epith Cells None seen (0-5/HPF) Urine Bacteria None seen (None) Ur Culture Indicated? Cult not indicated SARS-CoV-2 (PCR) (Negative) 10/07/20 Range/Units 18:35 WBC (4.5-11.0) X10^3/uL RBC (4.0-5.2) X10^6/uL Hgb (12.0-16.0) g/dL Hct (36-46) % MCV (80-100) fL MCH (26-34) PG MCHC (30-36) % RDW (11.6-14.8) % Plt Count (150-400) X10^3/uL Neut % (Auto) (50-75) % Lymph % (Auto) (25-40) % Mitchell % (Auto) (3-14) % Eos % (Auto) (2-4) % Baso % (Auto) (0-2) % Neut # (Auto) (1749-6233) /uL Lymph # (Auto) (3489-9552) /uL Mitchell # (Auto) (0-900) /uL Eos # (Auto) (0-450) /uL Baso # (Auto) (0-100) /uL PT (10.1-12.7) SECONDS INR (0.9-1.3) APTT (26.4-36.2) SECONDS Sodium (137-145) mmol/L Potassium (3.4-5.1) mmol/L Chloride (98-107) mmol/L Carbon Dioxide (22-32) mmol/L BUN (7-17) mg/dL Creatinine (0.52-1.04) mg/dL Estimated GFR (>60) mL/min BUN/Creatinine Ratio (6-22) Glucose (80-110) mg/dL Lactate (0.7-2.1) mmol/L Calcium (8.4-10.2) mg/dL Magnesium (1.6-2.3) mg/dL Total Bilirubin (0.2-1.3) mg/dL AST (14-36) IU/L ALT (<35) IU/L Alkaline Phosphatase (38-126) U/L Troponin I (0.01-0.034) ng/mL NT-Pro-B Natriuret Pep (<450) pg/mL Total Protein (6.3-8.2) g/dL Albumin (3.5-5.0) g/dL Globulin (1.7-4.1) g/dL Albumin/Globulin Ratio (1.0-2.8) Lipase (23-300) U/L Procalcitonin (<0.5) ng/mL Urine Color Urine Appearance Urine pH (4.5-8.0) Ur Specific Rigby (1.000-1.035) Urine Protein (Negative) Urine Glucose (UA) (Negative) g/dL Urine Ketones (NEGATIVE) Urine Occult Blood (Negative) Urine Nitrate (Negative) Urine Bilirubin (NEGATIVE) Urine Urobilinogen (0.2) E.U./dL Ur Leukocyte Esterase (NEGATIVE) Urine RBC (0-5/HPF) Urine WBC (0-5/HPF) Ur Squamous Epith Cells (0-5/HPF) Urine Bacteria (None) Ur Culture Indicated? SARS-CoV-2 (PCR) Negative (Negative) Imaging Data CT scan - abdomen/pelvis: Radiologist's Impression: FINDINGS: Image quality: Portions of the lower pelvis are suboptimally evaluated secondary to metallic streak artifact from pelvic fixation hardware. ABDOMEN: Lung bases: Lung bases are clear. Heart size is enlarged. Solid organs: Liver is mildly enlarged with steatosis. Gallbladder is unremarkable. Biliary system is non-dilated. Pancreas enhances normally. Spleen is normal in size and enhancement. No adrenal nodules. Kidneys are normal in size and enhancement, without hydronephrosis. Peritoneum and bowel: Stomach, small bowel, and colon loops are normal in caliber and wall thickness. No free fluid or air. Significant stool is present without obstruction. Nodes and vessels: No retroperitoneal or mesenteric adenopathy. Aorta and inferior vena cava are normal in caliber. Miscellaneous: No ventral hernias. PELVIS: Genitourinary: Bladder wall thickness is normal. Miscellaneous: No inguinal hernias or adenopathy. Bones: No suspicious bony lesions. No vertebral body compression fractures. Scoliotic curvature is present. Old left inferior pubic ramus fracture. Left iliac and pubic ramus fixation. IMPRESSION: 1. Significant stool consistent constipation. No obstruction. 2. Hepatomegaly with steatosis. Dictated by: Sol Koenig M.D. on 10/07/2020 at 20:55 Chest x-ray: Radiologist's Impression: FINDINGS: Surgical changes and devices: None. Lungs and pleura: Minimal areas of increased vascularity. No pleural effusions or pneumothorax. Mediastinum: Mediastinal contours appear normal. Heart size is enlarged. Bones and chest wall: No suspicious bony lesions. Overlying soft tissues appear unremarkable. Prominent scoliotic curvature. IMPRESSION: Cardiomegaly. No effusions or consolidations. Minimal scattered areas of increased vascularity suggestive of edema. Dictated by: Sol Koenig M.D. on 10/07/2020 at 20:33 ECG Data Interpretation: PACs Left ventricular hypertrophy with strain pattern Normal axis No acute ischemia MDM Narrative Medical decision making narrative: [age] year old woman with severe rheumatoid arthritis on weekly infusion therapy and 2 mg of prednisone daily presents with increasing pain all along her left side because she was not able to get her infusion last week. She also complains of a cough, unable to sleep because of the cough in the pain. Generally feeling unwell and her daughter notes that she is not making as much sense as she usually does. Dramatic leukocytosis with mild hyponatremia. No localizing signs of infection on clinical exam. Urinalysis is unremarkable. She has no consolidative findings on chest exam. She does have significant abdominal pain on palpation but does not spontaneously complain of this. She has no headache and no nuchal rigidity signs. CT scan does not suggest an acute source of infection to explain her leukocytosis. At this point she has been given Zosyn with blood cultures done, it does not look like she has a urinary tract infection, acute pneumonia, acute intra-abdominal infection, cellulitis or meningitis. Source of infection at this point and I identified an 85-year-old woman with mental status beginning to wax and wane certainly needs further evaluation and I will suggest hospital admission at this point. She has been given 100 mg of hydrocortisone as a stress dose given her chronic prednisone use. Her troponin is slightly elevated however EKG does not show acute ischemic changes and troponin level is lower than multiple previous readings. Slightly elevated BNP and suggestion of mild fluid overload on chest x-ray. She will be admitted to the hospitalist service for further observation and continuation of IV antibiotics while searching for a source for her malaise and leukocytosis. Discharge Plan Departure Patient Disposition: Admitted as Observation Clinical Impression: Acute hyponatremia Leukocytosis Qualifiers: Leukocytosis type: other Qualified Code(s): D72.828 - Other elevated white blood cell count Altered mental status Qualifiers: Altered mental status type: disorientation Qualified Code(s): R41.0 - Disorientation, unspecified Admit Date/Time: 10/07/20 23:01 Admit Provider: Denny Laurent
[2020-10-07] MEDS: PIPERACILLIN/TAZO 4.5 GM in SODIUM CHLORIDE 0.9% 100 ML 200 ML IV (20:14)
[2020-10-07] MEDS: HYDROCORTISONE 100 MG/2 ML VIAL IV (20:14)
[2020-10-07] MEDS: HYDROMORPHONE 1 MG INJ IV (20:14)
[2020-10-07 20:22] LABS: Magnesium 1.6 mg/dL (1.6-2.3)
[2020-10-07 20:35] LABS: NT-proBNP (BNP-Adult 18+) 5790 pg/mL (<450); Troponin I 0.038 ng/mL (0.01-0.034)
[2020-10-08] VITALS (10 sets, daily range): BP systolic 144–162; BP diastolic 65–91; PULSE 71–91; RESP 16–20; TEMP 36.6–37.4; O2SAT 90–100; BMI 18.1
--- NOTE | 2020-10-08 00:06 | DI.CT.S_ITS ---
PROCEDURE: CT HEAD/BRAIN WO CON INDICATIONS: ALTERED MENTAL STATUS TECHNIQUE: Noncontrast 4.5 mm thick angled axial sections acquired from the foramen magnum to the vertex, with coronal and sagittal reformats. For radiation dose reduction, the following was used: automated exposure control, adjustment of mA and/or kV according to patient size. COMPARISON: None. FINDINGS: Image quality: This examination is limited by motion artifact. CSF spaces: Basal cisterns are patent. No extra-axial fluid collections. The ventricles are symmetric in size and shape. Brain: No intracranial bleeds or masses. There is cerebral volume loss for age, with resultant ventricular and sulcal prominence. There are periventricular and deep white matter chronic small vessel ischemic changes. There is intracranial internal carotid artery atherosclerosis. Skull and face: Calvarium and visualized facial bones appear intact, without suspicious lesions. Sinuses: Visualized sinuses and mastoids are clear. IMPRESSION: Limited study demonstrating no definite acute intracranial process for age. (If clinically appropriate, please consider a repeat study, when the patient is able to hold still for the examination.) Note: No significant discrepancy from the preliminary report. Dictated by: Michael Martinez M.D. on 10/08/2020 at 7:18 Approved by: Michael Martinez M.D. on 10/08/2020 at 7:20
[2020-10-08 00:17] LABS: Creatine Kinase 111 U/L (30-135)
[2020-10-08 00:30] LABS: Troponin I 0.057 ng/mL (0.01-0.034)
[2020-10-08 00:33] LABS: CKMB % Relative Index 2.1 % (1.5-5.0)
[2020-10-08] MEDS: PIPERACILLIN-TAZO 3.375 GM/50 ML FROZ.PIGGY IV ×3 (01:07→15:57)
[2020-10-08] MEDS: PANTOPRAZOLE 40 MG VIAL IV (01:58)
[2020-10-08] MEDS: POTASSIUM CHLORIDE 20 MEQ TAB 40 MEQ PO (01:59)
[2020-10-08] MEDS: MAGNESIUM OXIDE 400 MG TABLET PO ×2 (01:59→07:29)
[2020-10-08] MEDS: ACETAMINOPHEN 325 MG TABLET 650 MG PO ×2 (02:14→16:13)
--- NOTE | 2020-10-08 02:17 | PM.HP.1 ---
History of Present Illness History of Present Illness Date Patient Seen: 10/08/20 Time Patient Seen: 00:45 Chief complaint: BODY ACHES/NOT SLEEPING Narrative: Ms. Kalpana Guzmán is an The patient The patient is unable to contribute to the medical record due to state of confusion. Per the patient's family at bedside patient had a 100.3 temperature today and over the last several days of complained of being very tired and has sustained falls. The family also reports shaking chills today. The patient was out of town until recently at which time she would fall asleep on the phone. Patient has associated complaints of malaise and weakness. She has had tender to COVID vaccines the 2nd dose being 09/14/2020. Per the family the patient has reported no complaints of headaches only the fatigue. No visual changes and has had poor appetite. She has not told him of any chest pain, shortness of breath. Family does report extensive coughing to the point of gagging. She has also reported nonspecific abdominal pain and has had no nausea and has chronic constipation. At baseline the patient is ambulatory with a walker or cane. Upon arrival to the ER the patient's temperature 100.3?, heart rate of 92, blood pressure 188/87, respirations 18 saturating 97% on room air. Chest x-ray is obtained which finds cardiomyopathy without effusions or consolidations. Twelve lead EKG shows a sinus rhythm with PACs increased artifact overlying left atrial enlargement with LVH in lateral ST depressions similar to prior tracings. On laboratory analysis the patient has white count of 21.7, neutrophils of 19,000, hemoglobin of 9.3 and hematocrit of 29.1 with platelets of 218. Her coags are within normal range. She has a sodium 128, potassium of 3.7, BUN of 8 creatinine is 0.26. Her magnesium level is 1.6 Her nonfasting glucose is 123. Her liver functions are all within normal limits. Patient has elevated troponin at 0.038 with a proBNP of 5790. Procalcitonin is 0.06. Urinalysis positive for protein and ketones but negative for leukocyte esterase WBCs or bacteria. Or the patient appeared to become more confused of [address] was obtained with movement artifact limiting interpretation, no definite acute processes. In the ER the patient received Solu-Medrol 100 mg IV, Dilaudid 0.5 mg IV and Zosyn 4.5 g IV. The patient is admitted to the hospitalist service for fever unknown origin and leukocytosis and probable bacteremia. Patient History Medical History Chicken pox (1945) Chronic pain syndrome Constipation Essential hypertension Hyperlipidemia Hyponatremia Measles (194) Osteoarthritis (2000) Pubic ramus fracture Rheumatoid arthritis (1988) Scoliosis (and kyphoscoliosis), idiopathic Spinal stenosis at L4-L5 level Surgical History H/O mastectomy S/P bilateral foot surgery Status post hip surgery (~12/2018) Family & Social History Family History Father Heart disease Grandfather Heart disease Grandmother Diabetes mellitus Social History: household members spouse Safety & Behavioral: Feels Safe in Current Yes Environment Been Physically Hurt or No Threatened By a Person Tobacco & Substance use: Smoking Status Former smoker alcohol intake frequency holiday/special occasion Substance Use Type does not use Meds Home Medications and Allergies Home Medications Medication Instructions Recorded Confirmed Type atorvastatin [Lipitor] 20 mg PO HS #0 10/24/16 05/19/19 History calcium carbonate [Calcium 500] 1 tab PO DAILY #0 10/24/16 05/19/19 History enalapril maleate 2.5 mg PO QDAY #0 10/24/16 05/19/19 History folic acid 1 mg PO QDAY #0 10/24/16 05/19/19 History polyethylene glycol 3350 [Miralax] 17 gm PO QDAY #1 bot 10/26/16 05/19/19 Rx prednisone 1 mg tablet,delayed 1 mg PO DAILY 03/06/18 05/19/19 History release acetaminophen-codeine 1 tab PO Q4H PRN 05/19/19 05/19/19 History aspirin 81 mg PO DAILY 05/19/19 05/19/19 History methotrexate sodium 2.5 mg PO QWEEK 05/19/19 05/19/19 History metoprolol tartrate 50 mg PO DAILY 05/19/19 05/19/19 History omeprazole 20 mg PO DAILY 05/19/19 05/19/19 History Allergies Allergy/AdvReac Type Severity Reaction Status Date / Time No Known Drug Allergies Allergy Verified 05/18/19 22:49 Review of Systems Review of Systems ROS: Yes All systems reviewed with the patient and are negative except as otherwise documented Exam Vital Signs (past 8 hours): - 10/07/20 18:28 10/07/20 18:30 10/07/20 18:40 Temperature Pulse Rate 84 79 86 Respiratory Rate Blood Pressure 181/77 H 195/82 H Pulse Oximetry 94 95 95 10/07/20 18:50 10/07/20 19:00 10/07/20 19:30 Temperature Pulse Rate 90 89 90 Respiratory Rate Blood Pressure 208/88 H 200/84 H 169/116 H Pulse Oximetry 94 94 94 10/07/20 19:51 10/07/20 20:00 10/07/20 20:10 Temperature Pulse Rate 86 79 78 Respiratory Rate Blood Pressure 114/83 229/95 H 203/88 H Pulse Oximetry 92 91 93 10/07/20 20:20 10/07/20 20:30 10/07/20 20:46 Temperature Pulse Rate 86 84 87 Respiratory Rate 14 16 Blood Pressure 194/86 H 191/86 H 192/88 H Pulse Oximetry 89 L 97 98 10/07/20 20:50 10/07/20 21:00 10/07/20 21:10 Temperature Pulse Rate 85 82 83 Respiratory Rate Blood Pressure 176/81 H 173/77 H 174/70 H Pulse Oximetry 98 99 98 10/07/20 21:20 10/07/20 21:30 10/07/20 21:40 Temperature Pulse Rate 82 81 80 Respiratory Rate Blood Pressure 171/77 H 168/66 H 164/74 H Pulse Oximetry 99 98 99 10/07/20 21:50 10/07/20 22:00 10/07/20 22:10 Temperature Pulse Rate 81 78 79 Respiratory Rate Blood Pressure 167/71 H 161/70 H 162/73 H Pulse Oximetry 99 99 99 10/07/20 22:20 10/07/20 22:23 10/07/20 22:30 Temperature Pulse Rate 97 H 91 H Respiratory Rate Blood Pressure 213/104 H 168/74 H Pulse Oximetry 98 98 10/07/20 22:32 10/07/20 22:40 10/07/20 22:50 Temperature Pulse Rate 84 75 76 Respiratory Rate Blood Pressure 146/67 H 158/72 H Pulse Oximetry 98 98 98 10/07/20 23:00 10/07/20 23:10 10/08/20 00:40 Temperature 99.2 F Pulse Rate 76 75 80 Respiratory Rate 20 Blood Pressure 159/61 H 154/71 H 162/91 H Pulse Oximetry 97 97 98 Oxygen Delivery Method Nasal Cannula Oxygen Flow Rate 2 Narrative Exam Narrative: GENERAL APPEARANCE: well developed, cachectic appearing elderly female who is ill-appearing. HEENT: Atraumatic PERRLA, conjunctiva clear, EOMs intact without nystagmus, no sinus tenderness to percussion, no rhinorrhea, mucous membranes are moist and pink. NECK/THYROID: neck supple, JVD present, no carotid bruit, no thyromegaly, trachea midline. LYMPH NODES: no cervical or supraclavicular lymphadenopathy. SKIN: [place], warm and dry. HEART: regular rate and rhythm, S1-S2, no murmur, no rubs or gallops, brisk capillary refill, no edema LUNGS: clear to auscultation bilaterally, no coarseness crackles or wheezing, no cough present CHEST: Symmetrical movement, no accessory muscle use, shallow tidal volume, grunting without tachypnea or hypoxia. ABDOMEN: Soft, no distention, generalized abdominal tenderness most prominent in the right upper quadrant, no guarding or peritoneal signs, no organomegaly, no flank or suprapubic tenderness, active bowel tones. BACK: Kyphosis and scoliosis EXTREMITIES: Ecchymosis and skin tears bilateral lower extremities, moves all extremities, strength is 5/5 and symmetrical, no deformities or joint effusions, no clubbing or cyanosis. NEUROLOGIC: Patient states that is 1935 and believe she is in group fell, poor recall, cranial nerves II-XII grossly intact, sensation intact to light touch, hearing grossly normal to speech. PSYCH: Good judgment, good insight, linear thought process, cooperative, appropriate with stable behavior Objective Labs Result Diagrams: 10/07/20 17:11 10/07/20 17:11 Labs: Laboratory Results - last 24 hr 10/07/20 10/07/20 10/07/20 17:11 17:11 17:11 WBC 21.7 H RBC 3.10 L Hgb 9.3 L Hct 29.1 L MCV 93.9 MCH 29.9 MCHC 31.9 RDW 16.1 H Plt Count 218 Neut % (Auto) 87.5 H Lymph % (Auto) 4.2 L [place] % (Auto) 7.8 Eos % (Auto) 0.1 L Baso % (Auto) 0.4 Neut # (Auto) 71882 H Lymph # (Auto) 900 L [place] # (Auto) 1700 H Eos # (Auto) 0 Baso # (Auto) 100 PT 13.5 H INR 1.2 APTT 25 L Sodium 128 L Potassium 3.7 Chloride 92 L Carbon Dioxide 27 BUN 8 Creatinine 0.26 L Estimated GFR > 60.0 BUN/Creatinine Ratio 30.8 H Glucose 123 H Lactate Calcium 9.6 Magnesium Total Bilirubin 0.6 AST 39 H ALT 34 Alkaline Phosphatase 66 Total Creatine Kinase CK-MB (CK-2) CK-MB (CK-2) Rel Index Troponin I NT-Pro-B Natriuret Pep Total Protein 6.7 Albumin 4.2 Globulin 2.5 Albumin/Globulin Ratio 1.7 Lipase 36 Procalcitonin 0.06 Urine Color Urine Appearance Urine pH Ur Specific [place] Urine Protein Urine Glucose (UA) Urine Ketones Urine Occult Blood Urine Nitrate Urine Bilirubin Urine Urobilinogen Ur Leukocyte Esterase Urine RBC Urine WBC Ur Squamous Epith Cells Urine Bacteria Ur Culture Indicated? SARS-CoV-2 (PCR) 10/07/20 10/07/20 10/07/20 17:11 17:11 18:27 WBC RBC Hgb Hct MCV MCH MCHC RDW Plt Count Neut % (Auto) Lymph % (Auto) [place] % (Auto) Eos % (Auto) Baso % (Auto) Neut # (Auto) Lymph # (Auto) [place] # (Auto) Eos # (Auto) Baso # (Auto) PT INR APTT Sodium Potassium Chloride Carbon Dioxide BUN Creatinine Estimated GFR BUN/Creatinine Ratio Glucose Lactate 1.8 Calcium Magnesium 1.6 Total Bilirubin AST ALT Alkaline Phosphatase Total Creatine Kinase CK-MB (CK-2) CK-MB (CK-2) Rel Index Troponin I 0.038 H NT-Pro-B Natriuret Pep 5790 H Total Protein Albumin Globulin Albumin/Globulin Ratio Lipase Procalcitonin Urine Color Yellow Urine Appearance Clear Urine pH 7.0 Ur Specific [place] 1.020 Urine Protein 1+ H Urine Glucose (UA) Negative Urine Ketones 1+ H Urine Occult Blood Trace-intact Urine Nitrate Negative Urine Bilirubin Negative Urine Urobilinogen 0.2 Ur Leukocyte Esterase Negative Urine RBC 0-1/hpf Urine WBC 0-1/hpf Ur Squamous Epith Cells None seen Urine Bacteria None seen Ur Culture Indicated? Cult not indicated SARS-CoV-2 (PCR) 10/07/20 10/07/20 18:35 23:57 WBC RBC Hgb Hct MCV MCH MCHC RDW Plt Count Neut % (Auto) Lymph % (Auto) [place] % (Auto) Eos % (Auto) Baso % (Auto) Neut # (Auto) Lymph # (Auto) [place] # (Auto) Eos # (Auto) Baso # (Auto) PT INR APTT Sodium Potassium Chloride Carbon Dioxide BUN Creatinine Estimated GFR BUN/Creatinine Ratio Glucose Lactate Calcium Magnesium Total Bilirubin AST ALT Alkaline Phosphatase Total Creatine Kinase 111 CK-MB (CK-2) 2.30 CK-MB (CK-2) Rel Index 2.1 Troponin I 0.057 H NT-Pro-B Natriuret Pep Total Protein Albumin Globulin Albumin/Globulin Ratio Lipase Procalcitonin Urine Color Urine Appearance Urine pH Ur Specific [place] Urine Protein Urine Glucose (UA) Urine Ketones Urine Occult Blood Urine Nitrate Urine Bilirubin Urine Urobilinogen Ur Leukocyte Esterase Urine RBC Urine WBC Ur Squamous Epith Cells Urine Bacteria Ur Culture Indicated? SARS-CoV-2 (PCR) Negative Assessment & Plan Assessment & Plan narrative: The patient is an 85-year-old female patient with a past medical history hypertension, hyperlipidemia, hyponatremia, spinal stenosis L4-5 with chronic pain scoliosis, kyphosis and constipation who presents to the ER with rigors, fevers and chills, body aches and falls with leukocytosis of unclear etiology. 1. Sepsis with organ dysfunction, present on admission, active -patient meets sepsis 3 criteria with elevated white count at 21.7, tachycardia at 92 beats per minute with cardiac dysfunction with elevated troponin and elevated proBNP and encephalopathy. -the patient is immunosuppressed taking methotrexate 2.5 mg each week and prednisone 1 mg daily for rheumatoid arthritis. -the patient is started empirically on Zosyn 3.375 g IV every 6 hours -will treat problems as outlined below. 2. Fever unknown origin, with leukocytosis present on admission, active. -elevated white count at 21.7 with neutrophils 19,000. Procalcitonin is 0.06. -chest x-ray is negative for effusions or consolidations, CT of the abdomen and pelvis finds only hepatomegaly with steatosis with significant stool loading, urine is positive for protein and ketones but negative leukocyte esterase WBCs or bacteria. -will obtain respiratory panel, and recheck CBC and procalcitonin in the morning. 3. Elevated troponin, present on admission, active -12 lead EKG reveals sinus rhythm with PACs, increased artifact overlying left atrial enlargement, LVH with lateral ST depression consistent with prior tracings. -elevated troponin likely related to demand ischemia initial troponin of 0.038. Will recheck troponin now and trend until moving downward. -proBNP is elevated at 5790, without evidence of pulmonary congestion or pulmonary edema on chest x-ray. Will recheck a cardiac panel and proBNP with morning labs. -last echocardiogram was in 05/2019 which found mild to moderate increase in left ventricular wall thickness normal function and a relaxation abnormality. -Ordered repeat echocardiogram. 4. Hyponatremia, present on admission, active -unknown if acute or chronic, serum sodium on admission is 128 with a baseline between 125 in 130. -patient is confused but this is believed related to sepsis noted above. -will recheck sodium with morning labs 5. Hypertension, chronic, stable. -patient has elevated blood pressure 188/87 upon arrival the ER and is subsequently is 154/71 upon admission to the acute care floor. -will continue patient's home regimen metoprolol 50 mg daily. 6. Rheumatoid arthritis chronic chronic, stable -unable to ascertain the last dose of methotrexate. -will continue prednisone 1 mg daily. VTE prophylaxis: Enoxaparin IV fluid: Saline lock Diet: Regular Code status: Full code, patient is currently her surrogate decision maker. The patient is admitted to the hospital due to the severity of her symptoms, risk for complications and adverse events requiring a complex treatment plan. The patient is admitted as an inpatient with expected length of stay to be greater than 2 midnights. COVID-19 COVID-19 status: Negative Result date/Date tested (Pos, Neg/Pending): 10/07/20 Scores GCS Marisa coma scale eye opening: Spontaneous [place] coma scale verbal response: Confused Marisa coma scale motor response: Obey commands Marisa coma scale total score: 14 SOFA PaO2/FIO2: >=400 mmHg Platelets: >= 150 Bilirubin: < 1.2 mg/dL Hypotension: MAP >= 70 mmHg [place] Coma Scale: 13-14 Renal: < 1.2 mg/dL SOFA Score: 1 Quality MIPS - Admit I confirm the patient?s Advance Care Plan is present, Code status is documented, Surrogate decision maker is in patient?s record [If Yes, STOP here]: Yes
[2020-10-08] MEDS: FLEETS ENEMA 1 EACH PR (03:48)
--- NOTE | 2020-10-08 04:02 | DI.ECHO.S_ITS ---
[facility]---------+ [facility] +---------+ : : [address] : : : : [id number] : : : : Phone: [phone] Echocardiogram Report + + :Name: SHAUN BAEZA Study Date: 10/08/2020 Height: 63 in : :[facility] ReadingLocation: Weight: 102 lb : : Gender: Female BSA: 1.5 m2 : :: 1935 Age: 85 yrs BP: 160/75 mmHg: :Reason For Study: HX of diastolic dysfuntion/ elevated proBNP : :Ordering Physician: Lisa : :Hospitalist Performed By: Kasia Page : :Referring: YASH JOHNS : + + Interpretation Summary The left ventricle is normal in size. Left ventricular systolic function is normal. The ejection fraction is estimated to be 60-65%. There has been no significant change since the previous exam. There is a significant dyssynchronous contraction pattern, consistent with a conduction abnormality. There is probable grade II LV diastolic dysfunction. The right ventricle is borderline dilated. The right ventricular systolic function is normal. The right ventricular systolic pressure is estimated to be at least 58 mmHg based on an estimated right atrial pressure of 15 mm Hg. Compared to the prior echo exam, there has been an increase in the severity of pulmonary hypertension. Both atria are severely dilated. There is mild to moderate tricuspid regurgitation. Compared to the prior echo exam, there has been an increase in TR severity. There is no other significant valvular heart disease. The aortic root is normal size. Procedure: A two-dimensional transthoracic echocardiogram with color flow and Doppler was performed. The study quality was technically adequate. Comparison is made with the echocardiogram of 05/19/2019. The patient was in normal sinus rhythm during the exam. Left Ventricle: The left ventricle is normal in size. Left ventricular wall thickness is mild-moderately increased. Left ventricular systolic function is normal. The ejection fraction is estimated to be 60-65%. There has been no significant change since the previous exam. There is a significant dyssynchronous contraction pattern, consistent with a conduction abnormality. Diastolic function could not be accurately assessed due to contradictory data. Right Ventricle: The right ventricle is borderline dilated. The right ventricular systolic function is normal. Atria: Both atria are severely dilated. Both atria have significantly increased in size since the prior echo exam. There is no Doppler evidence for an interatrial shunt. Mitral Valve: The mitral valve leaflets appear mildly thickened, but open well. There is mild mitral annular calcification. There is trace mitral regurgitation. Aortic Valve: The aortic valve is not well visualized. There is no aortic valve stenosis. There is trace aortic regurgitation. Tricuspid Valve: The tricuspid valve is normal in structure and function. There is mild to moderate tricuspid regurgitation. Compared to the prior echo exam, there has been an increase in TR severity. The right ventricular systolic pressure is estimated to be at least 58 mmHg based on an estimated right atrial pressure of 15 mm Hg. Compared to the prior echo exam, there has been an increase in the severity of pulmonary hypertension. Pulmonic Valve: The pulmonic valve is not well visualized. There is no other significant valvular heart disease. Great Vessels: The aortic root is normal size. The ascending aorta is at the upper limits of normal in size. The pulmonary is not well visualized. The IVC is dilated (diameter is greater than 2.1 cm) and it collapses less than 50% with a sniff. This suggests a high right atrial pressure of 15 mm Hg. Pericardium/ Pleura There is a trace loculated pericardial effusion. There is no pleural effusion. MMode/2D Measurements & Calculations LVIDd: 3.9 cm LVOT diam: 2.2 cm LVIDs: 2.7 cm Ao root diam: 3.1 cm FS: 30.6 % asc Aorta Diam: 3.3 cm IVSd: 1.1 cm LVPWd: 0.99 cm LV cruz. diameter/BSA (cm/m^2): 2.7 LV sys. diameter/BSA (cm/m^2): 1.9 LA A2 area: 29.1 cm2 RA long axis: 6.1 cm LA A4 area: 29.5 cm2 RA area: 27.1 cm2 LA length (vol): 5.9 cm RA vol: 102.8 ml LA vol: 124.5 ml RA : 70.8 ml/m2 LA vol index: 85.7 ml/m2 IVC diam: 3.7 cm RVD1 (basal): 4.3 cm Doppler Measurements & Calculations Ao V2 max: 173.9 cm/sec LVOT Max Rj: 90.2 cm/sec Ao V2 mean: 114.7 cm/sec LV V1 max P.3 mmHg Ao max P.1 mmHg LV V1 VTI: 18.5 cm Ao mean P.9 mmHg CHRIS(I,D): 2.4 cm2 Ao V2 VTI: 29.0 cm CHRIS(V,D): 1.9 cm2 sev ratio: 0.64 CHRIS indexed to BSA (cm^2/m^2): 1.6 MV E max rj: 80.5 cm/sec TR max rj: 328.5 cm/sec MV A max rj: 68.7 cm/sec TR max P.2 mmHg MV E/A: 1.2 PA V2 max: 58.5 cm/sec Med Peak E' Rj: 8.1 cm/sec PA V2 mean: 42.9 cm/sec E/E' med: 10.0 PA mean P.78 mmHg Lat Peak E' Rj: 11.5 cm/sec E/E' lat: 7.0 E/e' average: 8.5 MV dec time: 0.15 sec SV(LVOT): 68.9 ml Reading Physician:04:51 PM
[2020-10-08] MEDS: BISACODYL 10 MG SUPP PR (04:32)
[2020-10-08] MEDS: ATORVASTATIN 20 MG TABLET PO ×2 (05:22→20:11)
[2020-10-08 05:50] LABS: Add Manual Diff / Slide Review NO; Basophils Absolute Auto 0 /uL (0-100); Basophils Percent Auto 0.1 % (0-2); Eosinophils Absolute Auto 0 /uL (0-450); Hematocrit 27.2 % (36-46); Hemoglobin 8.7 g/dL (12.0-16.0); Lymphocytes Absolute Auto 500 /uL (1100-4500); Lymphocytes Percent Auto 2.1 % (25-40); Mean Corpuscular Volume 93.8 fL (80-100); Monocytes Absolute Auto 900 /uL (0-900); Monocytes Percent Auto 3.8 % (3-14); Neutrophils Absolute Auto 23200 /uL (1500-7000); Platelet Count 199 X10^3/uL (150-400); Red Blood Cell Count 2.91 X10^6/uL (4.0-5.2); Red Cell Distribution Width 16.2 % (11.6-14.8); White Blood Cell Count 24.6 X10^3/uL (4.5-11.0)
[2020-10-08 05:57] LABS: BUN Creatinine Ratio 19.4 (6-22); Blood Urea Nitrogen 6 mg/dL (7-17); Calcium 8.8 mg/dL (8.4-10.2); Carbon Dioxide 30 mmol/L (22-32); Chloride 93 mmol/L (98-107); Estimated Glomerular Filt Rate > 60.0 mL/min (>60); Glucose 140 mg/dL (80-110); HEMOLYSIS 15 (0-50); Potassium 4.2 mmol/L (3.4-5.1); Sodium 129 mmol/L (137-145)
[2020-10-08 06:42] LABS: Creatine Kinase 110 U/L (30-135)
[2020-10-08 06:56] LABS: NT-proBNP (BNP-Adult 18+) 7480 pg/mL (<450); Troponin I 0.052 ng/mL (0.01-0.034)
[2020-10-08 06:58] LABS: CKMB % Relative Index 2.2 % (1.5-5.0); Creatine Kinase MB 2.45 ng/mL (<2.37)
--- NOTE | 2020-10-08 07:34 | PC.ADMIT ---
[id number] Admission Note: The patient,Stephanie Guzmán,85 y/o, was given written information regarding hospital policies, unit procedures and contact persons. Patient's smoking status: Former smoker. Pt confused on admit. Daughter at bedside. Hypertensive. Mildly febrile at 99.2. Passed swallow eval- told this RN that she vomits every morning after waking up, confirmed by daughter. Med list incomplete and possibly incorrect- poor historian. Next shift aware to reconcile meds after a correct list has been provided by pt family. Pt Alert to self and birthday. Waxes and wanes- was able to state correct location a few hours later. Retaining urine post incontinent void. FCath inserted, tolerated well. Gave enema and suppository per provider order. Pt tolerated well, no significant BM on shift. Vital Signs - 8 hr 10/08/20 00:40 10/08/20 01:30 10/08/20 05:00 Temperature 99.2 F 99.2 F Pulse Rate 80 79 78 Respiratory Rate 20 17 Blood Pressure 162/91 H 145/79 H 159/76 H Pulse Oximetry 98 100
[2020-10-08 08:18] LABS: Adenovirus Not Detected (Not Detect); B. parapertussis Not Detected (Not Detecte); Bordetella pertussis Not Detected (Not Detecte); Chlamydophila pneumoniae Not Detected (Not Detect); Coronavirus 229E Not Detected (Not Detect); Coronavirus HKU1 Not Detected (Not Detect); Coronavirus NL 63 Not Detected (Not Detect); Coronavirus OC43 Not Detected (Not Detect); Human Metapneumovirus Not Detected (Not Detect); Human Rhinovirus/Enterovirus Not Detected (Not Detect); Influenza A Not Detected (Not Detect); Influenza B Not Detected (Not Detect); Mycoplasma pneumoniae Not Detected (Not Detect); Parainfluenza Virus 1 Not Detected (Not Detect); Parainfluenza Virus 2 Not Detected (Not Detect); Parainfluenza Virus 3 Not Detected (Not Detect); Parainfluenza Virus 4 Not Detected (Not Detect); Respiratory Syncytial Virus Not Detected (Not Detect); SARS- CoV-2 Not Detected (Not Detecte)
[2020-10-08] MEDS: PANTOPRAZOLE 40 MG VIAL 20 MG IV (09:18)
[2020-10-08] MEDS: polyethylene glycoL 3350 17 GM POWD.PACK PO (09:18)
[2020-10-08] MEDS: METOPROLOL IR 50 MG TABLET PO (09:19)
[2020-10-08] MEDS: DOCUSATE 100 MG CAPSULE PO ×2 (09:21→20:11)
[2020-10-08] MEDS: ENOXAPARIN 40 MG/0.4 ML SYRINGE SUBCUT (09:21)
[2020-10-08] MEDS: predniSONE 1 MG TABLET PO (09:21)
[2020-10-08] MEDS: ENALAPRIL 5 MG TABLET 2.5 MG PO (10:04)
--- NOTE | 2020-10-08 10:31 | PT.IIE ---
Current Diagnoses Sepsis, unspecified organism (10/07/20) Surgical History (Last Reviewed 10/08/20 @ 07:10 by Natasha Briceno MD) H/O mastectomy S/P bilateral foot surgery Status post hip surgery (~12/2018) Medical History (Last Reviewed 10/08/20 @ 07:10 by Natasha Briceno MD) Chicken pox (1945) Chronic pain syndrome Constipation Essential hypertension Hyperlipidemia Hyponatremia Measles (194) Osteoarthritis (2000) Pubic ramus fracture Rheumatoid arthritis (1988) Scoliosis (and kyphoscoliosis), idiopathic Spinal stenosis at L4-L5 level Physical Therapy Inpatient Evaluation/Re-Eval M1 PT/OT-IP Prior Functional Status Start: 10/08/20 08:45 Freq: NEEDED Status: Active Protocol: Document 10/08/20 12:43 CGR (Rec: 10/08/20 13:02 CGR [id number]) Medical Review Prior Functional Status Medical History Reviewed Yes Communication Pt is an effective verbal communicator. Mobility and Gait Pt uses a walker or cane for mobility. Activities of Daily Living and IADL's Pt needed assist for most ADLs but was able to feed herself with special feeding equipment and gets assist for showering . Pt states her assists her as needed. Family does cooking and pt and warm up food as needed . Prior Functional Level (Other details) Pt's family is very active in her care. Social History Household Members spouse Living Arrangements House Number of Floors (Floors) Two Floors Number of Stairs To Enter/Railing? pt has a ramp to enter and 13 stairs down with R rail descending to TV room Home Environment Standard Height Toilet,Walk in Shower,Tub/Shower,Ramp Home Equipment Front Wheel Walker,Quad Cane, Raised Toilet Seat w/Armrests, Tub Transfer Bench,Hand Held Shower,Grab Bars Near Toilet, Grab Bars In Shower Employment Status Retired Additional Social History Comment Pt lives at home with her who provides most of her care but her children are at the house often and assist as needed. M1 PT/OT-IP Prior Functional Status Start: 10/08/20 12:43 Freq: NEEDED Status: Active Protocol: Document 10/08/20 12:43 CGR (Rec: 10/08/20 13:02 CGR [id number]) Medical Review Prior Functional Status Medical History Reviewed Yes Communication Pt is an effective verbal communicator. Mobility and Gait Pt uses a walker or cane for mobility. Activities of Daily Living and IADL's Pt needed assist for most ADLs but was able to feed herself with special feeding equipment and gets assist for showering . Pt states her assists her as needed. Family does cooking and pt and warm up food as needed . Prior Functional Level (Other details) Pt's family is very active in her care. Social History Household Members spouse Living Arrangements House Number of Floors (Floors) Two Floors Number of Stairs To Enter/Railing? pt has a ramp to enter and 13 stairs down with R rail descending to TV room Home Environment Standard Height Toilet,Walk in Shower,Tub/Shower,Ramp Home Equipment Front Wheel Walker,Quad Cane, Raised Toilet Seat w/Armrests, Tub Transfer Bench,Hand Held Shower,Grab Bars Near Toilet, Grab Bars In Shower Employment Status Retired Additional Social History Comment Pt lives at home with her who provides most of her care but her children are at the house often and assist as needed. M2 PT-IP Current Condition Start: 10/08/20 08:45 Freq: NEEDED Status: Active Protocol: Document 10/08/20 10:31 AW (Rec: 10/08/20 11:51 AW [id number]) Physical Therapy Current Condition Current Condition Evaluation Date 10/08/20 Treatment Diagnosis sepsis, delirium, generalized weakness, difficulty in walking Onset Date 10/07/20 Precautions Other Precautions falls M3 PT-IP Subjective Start: 10/08/20 08:45 Freq: NEEDED Status: Active Protocol: Document 10/08/20 10:31 AW (Rec: 10/08/20 11:51 AW [id number]) Subjective Physical Therapy Visit Type Type Initial Evaluation Visit Start Time 09:46 Visit Stop Time 10:31 Total Visit Minutes 45 Notes Co-tx with OT. Pt's daughter, Tennille, was present through most of this session. Number of DRESSMAKER GARMENT FITTER Visits 0 Physical Therapy Visit Comments Patient Comments Pt is willing to work with rehab team Patient Goals Pt hopes to return home Therapy Pain Assessment Pain When Pain Assessed During Mobility Pain Present Pain Present Denied Pain M4 PT-IP Mobility and Gait Start: 10/08/20 08:45 Freq: NEEDED Status: Active Protocol: Document 10/08/20 10:31 AW (Rec: 10/08/20 11:51 AW [id number]) PT-Transfer Assessment Sit to and From Stand Sit to and from Stand Moderate Assistance,1 Person Assistance,Use of Upper Extremities Equipment Transfer Assistive Device Gait Belt,Front Wheeled Walker Orthotic/Prosthetic Devices or Brace: No Transfers Transfer Destination Chair,Toilet Transfer Technique Stand Step Pivot Transfer Ability Level of Assist Moderate Assistance,1 Person Assistance,Use of Upper Extremities Comments Mobility Comments Pt was sitting EOB as PT and OT arrived. She needed cues to scoot forward and mod assist x 1 to stand. Pt pushed the walker exceedingly far ahead of herself requiring frequent cues to step in to the frame. She ambulated mod A x 1 with FWW with frequent cues due to distractibility and poor safety awareness. She transferred to the toilet mod A x 1 and cues to use the grab bar. OT provided max assist with pericare for completeness of hygiene. Pt then ambulated with FWW to the sink, requiring cues to push the walker up to the sink for best support. She then transferred to the bedside chair mod A x 1. She was positioned there with call light and all needs in reach. Chair alarm was placed for safety. Pt's daughter remained in the room Gait Assessment Gait Gait Assistance Required: Moderate Assistance,1 Person Assist Distance (Feet) 20 Assistive Devices Assistive Device Gait Belt,Front Wheeled Walker Orthotic/Prosthetic Devices or Brace: No Gait Deviations General Gait Pattern Decreased Stride Length, Decreased Feet Clearance, Flexed Trunk,Narrow Based Gait Factors Limiting Gait Function Factors Limiting Gait Function Decreased Activity Tolerance, Decreased Strength,Difficulty Following Directions,Poor Balance,Poor Safety Awareness Comments Gait Comments See mobility comments for details. Stair Climbing Assessment Comments Stair Climbing Comments Not assessed. Pt does not need to navigate stairs at home. PT-Balance Assessment Sitting Balance and Reactions Static Sitting Balance Ability Good Dynamic Sitting Balance Ability Fair Standing Balance and Reactions Static Standing Balance Ability Fair Dynamic Standing Balance Ability Poor Device Used FWW M5 PT-IP Objective Assessments Start: 10/08/20 08:45 Freq: NEEDED Status: Active Protocol: Document 10/08/20 10:31 AW (Rec: 10/08/20 11:53 AW [id number]) Orientation Orientation/Cognition Level of Alertness Confusional State Orientation Name,Year,Place Language Function Ability No Deficits Noted Safety Awareness Decreased Safety Awareness Memory Description Short Term Impaired,Safety Counselor Impaired Gross Range of Motion Lower Extremity ROM Assessment Within Functional Limits Strength Comments Strength Comments Unable to accurately assess due to cognitive status. Coordination Assessment Assessment Coordination Comments Unable to assess due to cognitive status. Sensation Assessment Comments Sensation Comments Unable to assess due to cognitive status. M6 PT-IP Treatment Start: 10/08/20 08:45 Freq: NEEDED Status: Active Protocol: Document 10/08/20 10:31 AW (Rec: 10/08/20 11:53 AW [id number]) Physical Therapy Treatment Education Education Provided Safety M7 PT-IP Assessment and Plan Start: 10/08/20 08:45 Freq: NEEDED Status: Active Protocol: Document 10/08/20 10:31 AW (Rec: 10/08/20 13:24 AW [id number]) PT Summary Assessment and Plan Potential Rehabilitation Potential Good Status of Condition at Evaluation Evolving Summary Impairments Strength,Balance,Cognition,Bed Mobility,Transfers,Gait, Activity Tolerance Assessment Summary Stephanie is an 85 yo woman with admitting diagnosis of sepsis of unclear etiology. She is typically modified independent for mobility at home with use of walker or cane. She receives assist from her and other family for ADL's and IADL's. She required mod assist for all mobility with FWW on assessment today. Pt's daughter states this is inconsistent with her baseline . PT will continue to assess and refine discharge recommendation. Pt will have family assist at home. Depending on progress, may need to conduct caregiver training with family prior to discharge. Goals Bed Mobility Goal Standby Assistance Transfer Goal Contact Guard Assistance,Front Wheeled Walker Gait Goal Contact Guard Assistance,Front Wheel Walker Gait Distance 75 Days to Meet Goals 5 Frequency of Treatment Frequency Of Treatment Once a Day Treatment Plan Physical Therapy Treatment Plan Bed Mobility Training,Transfer Training,Gait Training, Therapeutic Exercise,Balance Retraining,Discharge Planning, Neuromuscular Re-ed, Coordination Retraining Other Recommendations and Next Treatment assess bed mobility, transfer Focus training; ambulation with FWW Precautions Other Precautions falls Recommendations To Nursing Amount of Assist Needed 1 Person Assist Discharge Recommendations PT Discharge Recommendations Home with / Assist Available Transportation Needs at Discharge Private Vehicle
--- NOTE | 2020-10-08 10:31 | OT.IP.EVAL ---
Current Diagnoses Sepsis, unspecified organism (10/07/20) Past Medical History (Last Reviewed 10/08/20 @ 07:10 by Natasha Briceno MD) Chicken pox (1945) Chronic pain syndrome Constipation Essential hypertension Hyperlipidemia Hyponatremia Measles (1946) Osteoarthritis (2000) Pubic ramus fracture Rheumatoid arthritis (1988) Scoliosis (and kyphoscoliosis), idiopathic Spinal stenosis at L4-L5 level Surgical History (Last Reviewed 10/08/20 @ 07:10 by Natasha Briceno MD) H/O mastectomy S/P bilateral foot surgery Status post hip surgery (~12/2018) Occupational Therapy Inpatient Evaluation/Re-Eval M1 PT/OT-IP Prior Functional Status Start: 10/08/20 08:45 Freq: NEEDED Status: Active Protocol: Document 10/08/20 12:43 CGR (Rec: 10/08/20 13:02 CGR [id number]) Medical Review Prior Functional Status Medical History Reviewed Yes Communication Pt is an effective verbal communicator. Mobility and Gait Pt uses a walker or cane for mobility. Activities of Daily Living and IADL's Pt needed assist for most ADLs but was able to feed herself with special feeding equipment and gets assist for showering . Pt states her assists her as needed. Family does cooking and pt and warm up food as needed . Prior Functional Level (Other details) Pt's family is very active in her care. Social History Household Members spouse Living Arrangements House Number of Floors (Floors) Two Floors Number of Stairs To Enter/Railing? pt has a ramp to enter and 13 stairs down with R rail descending to TV room Home Environment Standard Height Toilet,Walk in Shower,Tub/Shower,Ramp Home Equipment Front Wheel Walker,Quad Cane, Raised Toilet Seat w/Armrests, Tub Transfer Bench,Hand Held Shower,Grab Bars Near Toilet, Grab Bars In Shower Employment Status Retired Additional Social History Comment Pt lives at home with her who provides most of her care but her children are at the house often and assist as needed. M1 PT/OT-IP Prior Functional Status Start: 10/08/20 12:43 Freq: NEEDED Status: Active Protocol: Document 10/08/20 12:43 CGR (Rec: 10/08/20 13:02 CGR [id number]) Medical Review Prior Functional Status Medical History Reviewed Yes Communication Pt is an effective verbal communicator. Mobility and Gait Pt uses a walker or cane for mobility. Activities of Daily Living and IADL's Pt needed assist for most ADLs but was able to feed herself with special feeding equipment and gets assist for showering . Pt states her assists her as needed. Family does cooking and pt and warm up food as needed . Prior Functional Level (Other details) Pt's family is very active in her care. Social History Household Members spouse Living Arrangements House Number of Floors (Floors) Two Floors Number of Stairs To Enter/Railing? pt has a ramp to enter and 13 stairs down with R rail descending to TV room Home Environment Standard Height Toilet,Walk in Shower,Tub/Shower,Ramp Home Equipment Front Wheel Walker,Quad Cane, Raised Toilet Seat w/Armrests, Tub Transfer Bench,Hand Held Shower,Grab Bars Near Toilet, Grab Bars In Shower Employment Status Retired Additional Social History Comment Pt lives at home with her who provides most of her care but her children are at the house often and assist as needed. M2 OT-IP Current Condition Start: 10/08/20 12:43 Freq: Status: Active Protocol: Document 10/08/20 12:43 CGR (Rec: 10/08/20 13:02 R [id number]) Occupational Therapy Current Condition Current Condition Evaluation Date 10/08/20 Treatment Diagnosis Sepsis with leukocytosis Diagnosis Onset Date 10/07/20 M3 OT- IP Subjective and Pain Start: 10/08/20 12:43 Freq: Status: Active Protocol: Document 10/08/20 12:43 CGR (Rec: 10/08/20 13:02 R [id number]) OT- Subjective Occupational Therapy Visit Type Type Initial Evaluation Visit Start Time 10:00 Visit Stop Time 10:31 Total Visit Minutes 31 Notes co-treat with P.T. Ot entered after P.T. already in the room . OT Pain Assessment Pain When Pain Assessed At Rest Pain Present Pain Present Denied Pain M4 OT- IP ADL's Start: 10/08/20 12:43 Freq: Status: Active Protocol: Document 10/08/20 12:43 CGR (Rec: 10/08/20 13:02 CGR [id number]) OT [id number] Comments OT Self-Feeding Comments not meal time OT ADL-Grooming General Evaluation Grooming Ability Standby Assistance Comments OT Grooming Comments pt washed hands standing at sink OT ADL-Oral Care Comments Oral Care Comments pt states that her daughter already performed oral care for her. OT ADL-Dressing General Eval Lower Body Dressing Ability Maximum Assistance Areas Needing Assistance Underpants/Brief,Socks Comments OT Dressing Comments Pt attempted to don socks but states that she needs help. Pt also needed assist with threading and pulling up brief . OT ADL-Toileting General Evaluation Toileting Ability Moderate Assistance,Maximum Assistance Areas Needing Assistance Manage Clothing,Perform Perineal Hygiene Devices Toileting Assistive Devices Grab Bars Comments OT Toileting Comments Pt attempted BM seated on toilet but was unable. Brief was soiled with BM matter when doffed. back pericare required max a for thoroughness. OT ADL-Bathing Comments OT Bathing Comments Not performed on this date. M5 OT- IP IADL's Start: 10/08/20 12:43 Freq: Status: Active Protocol: Document 10/08/20 12:43 CGR (Rec: 10/08/20 13:02 CGR [id number]) OT-Instrumental Activities of Daily Living Deficits IADL Deficits Identified Deficits Home Safety Awareness Awareness of Need for Assistance at Home Decreased Awareness Ability to Problem Solve Emergency Unable to Problem Solve Situations Medication Management Medication Management Caregiver Administers Money Management Money Management Caregiver Provides Assistance Meal Preparation Meal Preparation Caregiver Provides Assist Fish Bait Processing Supervisor Fish Bait Processing Supervisor Caregiver Provides Assist Driving Driving Comments Pt does not drive M6 OT- IP Functional Cognition Start: 10/08/20 12:43 Freq: Status: Active Protocol: Document 10/08/20 12:43 CGR (Rec: 10/08/20 13:02 CGR [id number]) Cognitive Factors Limiting Selfcare Function Cognitive Ability Level of Alertness Alert Patient Orientation Name,Age,Birthday,Month,Year, Day of Week,Place,Situation Attention Span Ability Unable to Focus,Unable to Sustain Attention Ability to Follow Commands Able to Follow One Step Commands with Increased Time, Able to Follow One Step Commands with Repetition Cognitive Comments Cognitive Assessment Comments Pt would benefit from formal cognitive assessment. Family mentioned a head injury in the past. OT- Vision and Hearing OT- Hearing Assessment OT- Hearing Assessment WFL OT- Vision Assessment Vision Assessment Comments Pt does not follow commands consistently to perform M7 OT- IP Mobility and Balance Start: 10/08/20 12:43 Freq: Status: Active Protocol: Document 10/08/20 12:43 CGR (Rec: 10/08/20 13:02 CGR [id number]) OT-Transfer Assessment Sit to and From Stand Sit to and from Stand Minimal Assistance,Moderate Assistance,1 Person Assistance Transfers Transfer Ability Minimal Assistance,Moderate Assistance,1 Person Assistance Technique Transfer Destination Bed,Chair,Toilet Transfer Technique Stand Step Pivot Devices Transfer Assistive Devices Gait Belt,Front Wheeled Walker Comments Mobility Comments Pt needed vc and assist with use of walker for safe mobility. Pt is impulsive in her movement with poor balance . OT- Gait Assessment Gait Gait Assistance Required: Minimum Assistance,Moderate Assistance,1 Person Assist Assistive Devices Assistive Device Gait Belt,Front Wheeled Walker OT- Balance Assessment Sitting Balance and Reactions Static Sitting Balance Ability Poor Dynamic Sitting Balance Ability Poor M8 OT- IP Objective Assessments Start: 10/08/20 12:43 Freq: Status: Active Protocol: Document 10/08/20 12:43 CGR (Rec: 10/08/20 13:02 CGR [id number]) OT Gross Range of Motion Upper Extremity Range of Motion Assessment Within Functional Limits ROM Impairments as seen with ADLs, Pt does not follow commands consistently to perform formal testing. Pt with significantly limited hand ROM d/t arthritic changes. OT Strength Comments Strength Comments as seen with ADLs, Pt does not follow commands consistently to perform formal testing OT- Coordination Assessment Comments Coordination Comments Pt does not follow commands consistently to perform formal testing OT-Muscle Tone Assessment Muscle Tone WNL Yes OT Sensation Assessment Edema Edema Absent M9 OT- IP Assessment and Plan Start: 10/08/20 12:43 Freq: Status: Active Protocol: Document 10/08/20 12:43 CGR (Rec: 10/08/20 13:02 CGR [id number]) OT Summary Assessment and Plan Potential Rehabilitation Potential Fair Analytic Complexity at Evaluation Moderate Summary OT Impairments Range of Motion,Balance, Coordination,Functional Cognition,Functional Mobility, Self-Feeding,Grooming,Dressing ,Toileting,Bathing,Toilet Transfers,Shower Transfers, Activity Tolerance Progress Towards Goals Slow Progress due to Medical Issues,Slow Progress due to Cognition Assessment Summary Pt appears as a moderate complexity evaluation s/p admit for sepsis. Pt presents as close to her baseline but would benefit from OT services while hospitalized for increasing her ADL abilities. Pt will likely be safe for discharge home with supportive family. Goals Self-Feeding Goal Standby Assistance Grooming Goal Independent Dressing Goal Independent Toileting Goal Independent Bathing Goal Standby Assistance Toilet Transfer Goal Independent Shower Transfer Goal Standby Assistance Days to Meet Goals 10 Frequency of Treatment Frequency Of Treatment Once a Day Treatment Plan OT Treatment Plan ADL Training,Functional Cognition Training,Functional Mobility,Patient/Family Education,Discharge Planning Other Treatment Recommendations and Next shower Treatment Focus Discharge Recommendations OT Discharge Recommendations Home with Assistance Transportation Needs at Discharge Private Vehicle
--- NOTE | 2020-10-08 10:40 | CM.DANOTE ---
DCP: Case received, EMR reviewed and met with patient. Daughter, Scarlett, was also at bedside. Introduced self and role. Was able to obtain information from patient regarding her baseline activity status at home, and her current living situation. DCP assessment completed with information currently available. Patient is an 85 year old female who admitted yesterday evening to the care of the hospitalist team. PCP: Dr. Castanon. Payer: confirmed: Medicare/[employer]. Patient came to the hospital via private vehicle secondary to having increased generalized pain and weakness. Patient has history of rheumatoid arthritis and has weekly infusions for this, but missed her last treatment. She also is on prednisone. Her WBC count is currently elevated and is being evaluated for this as well. Met with patient in her room. She is alert, sitting up on the side of the bed having breakfast. Her daughter, Scarlett, was in the room, and she lives near the [facility]. Patient resides in [place] with her spouse, Stone. She indicated that she uses a walker mostly in the morning because she is so stiff, and a cane at other times. She does not drive, her takes her to appointments as needed. Asked patient if she had home health before, and indicated, she thinks that she did at one time. P: DCP to continue to follow closely. Patient will be working with P.T and O.T. Will note any recommendations. Bernice Gill RN/[employer]
--- NOTE | 2020-10-08 13:28 | DI.CT.S_ITS ---
PROCEDURE: CT CHEST WO CON INDICATIONS: Short of breath TECHNIQUE: Noncontrast 5 mm thick sections acquired from the pulmonary apices to the posterior costophrenic angles. 1 mm lung window, 5 mm thick coronal and sagittal and 7 mm axial MIP reformats were then acquired. For radiation dose reduction, the following was used: automated exposure control, adjustment of mA and/or kV according to patient size. COMPARISON: None. FINDINGS: Image quality: Excellent. Lungs and pleura: Small bilateral pleural effusions are seen. There is no pneumothorax. No acute air space opacities. Central and peripheral airways are patent and normal in caliber. Mediastinum: Heart size is normal. No pericardial effusion. No mediastinal adenopathy by size criteria. Thoracic aorta and central pulmonary arteries are normal in size. Atherosclerotic calcification is noted. Esophagus is normal in caliber. There is a small hiatal hernia. Bones and chest wall: Moderate to prominent S shaped scoliosis can be seen. No suspicious bony lesions. No vertebral body compression fractures. No axillary or supraclavicular adenopathy by size criteria. Thyroid gland is small in size. Abdomen: Visualized upper abdominal solid organs and bowel loops appear normal in the absence of contrast. IMPRESSION: There are small bilateral pleural effusions. Otherwise, clear lungs. Incidental note is made of: Moderate to prominent S shaped scoliosis Small hiatal hernia Dictated by: Michael Martinez M.D. on 10/08/2020 at 14:10 Approved by: Michael Martinez M.D. on 10/08/2020 at 14:12
--- NOTE | 2020-10-08 14:28 | PM.PN.1 ---
Subjective Subjective Date Patient Seen: 10/08/20 Time Patient Seen: 12:29 Interval history: She is confused and thinks she is admitted for a head injury which was her last hospital visit. She is denying any pain. She does have shortness of breath and cough. No fevers/chills. No abdominal pain, nausea, vomiting, or diarrhea. Exam Vital Signs (past 8 hours): - 10/08/20 07:42 10/08/20 08:16 10/08/20 10:04 Temperature 99.1 F Pulse Rate 91 H 83 83 Respiratory Rate 18 16 Blood Pressure 156/85 H 156/85 H Pulse Oximetry 99 94 10/08/20 12:09 Temperature 99.3 F Pulse Rate 71 Respiratory Rate 18 Blood Pressure 147/67 H Pulse Oximetry 93 Oxygen Delivery Method Room Air Oxygen Flow Rate 0 Narrative Exam Narrative: GENERAL APPEARANCE: no acute distress. HEENT: EOMs intact without nystagmus, no sinus tenderness to percussion, no rhinorrhea, mucous membranes are moist and pink. NECK/THYROID: neck supple, JVD present, no carotid bruit, no thyromegaly, trachea midline. LYMPH NODES: no cervical or supraclavicular lymphadenopathy. SKIN: [place], warm and dry. HEART: regular rate and rhythm, S1-S2, no murmur, no rubs or gallops, brisk capillary refill, no edema LUNGS: clear to auscultation bilaterally, no coarseness crackles or wheezing, no cough present CHEST: Symmetrical movement, no accessory muscle use, shallow tidal volume, grunting without tachypnea or hypoxia. ABDOMEN: Soft, no distention, generalized abdominal tenderness most prominent in the right upper quadrant, no guarding or peritoneal signs, no organomegaly, no flank or suprapubic tenderness, active bowel tones. BACK: Kyphosis and scoliosis EXTREMITIES: Ecchymosis and skin tears bilateral lower extremities, moves all extremities, strength is 5/5 and symmetrical, no deformities or joint effusions, no clubbing or cyanosis. NEUROLOGIC: Patient knows it is September 2020, but was wrong on the date. Knows she is in a hospital but wrong on the town PSYCH: Good judgment, good insight, linear thought process, cooperative, appropriate with stable behavior Objective Labs Result Diagrams: 10/08/20 05:25 10/08/20 05:25 Labs: Laboratory Results - last 24 hr 10/07/20 10/07/20 10/07/20 17:11 17:11 17:11 WBC 21.7 H RBC 3.10 L Hgb 9.3 L Hct 29.1 L MCV 93.9 MCH 29.9 MCHC 31.9 RDW 16.1 H Plt Count 218 Neut % (Auto) 87.5 H Lymph % (Auto) 4.2 L Divide % (Auto) 7.8 Eos % (Auto) 0.1 L Baso % (Auto) 0.4 Neut # (Auto) 20685 H Lymph # (Auto) 900 L Divide # (Auto) 1700 H Eos # (Auto) 0 Baso # (Auto) 100 PT 13.5 H INR 1.2 APTT 25 L Sodium 128 L Potassium 3.7 Chloride 92 L Carbon Dioxide 27 BUN 8 Creatinine 0.26 L Estimated GFR > 60.0 BUN/Creatinine Ratio 30.8 H Glucose 123 H Lactate Calcium 9.6 Magnesium Total Bilirubin 0.6 AST 39 H ALT 34 Alkaline Phosphatase 66 Total Creatine Kinase CK-MB (CK-2) CK-MB (CK-2) Rel Index Troponin I NT-Pro-B Natriuret Pep Total Protein 6.7 Albumin 4.2 Globulin 2.5 Albumin/Globulin Ratio 1.7 Lipase 36 Procalcitonin 0.06 Urine Color Urine Appearance Urine pH Ur Specific [place] Urine Protein Urine Glucose (UA) Urine Ketones Urine Occult Blood Urine Nitrate Urine Bilirubin Urine Urobilinogen Ur Leukocyte Esterase Urine RBC Urine WBC Ur Squamous Epith Cells Urine Bacteria Ur Culture Indicated? Chlamy pneumoniae PCR Adenovirus (PCR) B. pertussis DNA (PCR) B.parapertussis DNA PCR Coronavirus OC43 (PCR) Coronavirus HKU1 (PCR) Coronavirus 229E (PCR) SARS-CoV-2 (PCR) Coronavirus NL63 (PCR) Human Metapneumovir PCR Influenza Type A (PCR) Influenza Type B (PCR) M. pneumoniae (PCR) Parainfluenza 1 (PCR) Parainfluenza 2 (PCR) Parainfluenza 3 (PCR) Parainfluenza 4 (PCR) RSV (PCR) Entero/Rhino (PCR) 10/07/20 10/07/20 10/07/20 17:11 17:11 18:27 WBC RBC Hgb Hct MCV MCH MCHC RDW Plt Count Neut % (Auto) Lymph % (Auto) Divide % (Auto) Eos % (Auto) Baso % (Auto) Neut # (Auto) Lymph # (Auto) Divide # (Auto) Eos # (Auto) Baso # (Auto) PT INR APTT Sodium Potassium Chloride Carbon Dioxide BUN Creatinine Estimated GFR BUN/Creatinine Ratio Glucose Lactate 1.8 Calcium Magnesium 1.6 Total Bilirubin AST ALT Alkaline Phosphatase Total Creatine Kinase CK-MB (CK-2) CK-MB (CK-2) Rel Index Troponin I 0.038 H NT-Pro-B Natriuret Pep 5790 H Total Protein Albumin Globulin Albumin/Globulin Ratio Lipase Procalcitonin Urine Color Yellow Urine Appearance Clear Urine pH 7.0 Ur Specific [place] 1.020 Urine Protein 1+ H Urine Glucose (UA) Negative Urine Ketones 1+ H Urine Occult Blood Trace-intact Urine Nitrate Negative Urine Bilirubin Negative Urine Urobilinogen 0.2 Ur Leukocyte Esterase Negative Urine RBC 0-1/hpf Urine WBC 0-1/hpf Ur Squamous Epith Cells None seen Urine Bacteria None seen Ur Culture Indicated? Cult not indicated Chlamy pneumoniae PCR Adenovirus (PCR) B. pertussis DNA (PCR) B.parapertussis DNA PCR Coronavirus OC43 (PCR) Coronavirus HKU1 (PCR) Coronavirus 229E (PCR) SARS-CoV-2 (PCR) Coronavirus NL63 (PCR) Human Metapneumovir PCR Influenza Type A (PCR) Influenza Type B (PCR) M. pneumoniae (PCR) Parainfluenza 1 (PCR) Parainfluenza 2 (PCR) Parainfluenza 3 (PCR) Parainfluenza 4 (PCR) RSV (PCR) Entero/Rhino (PCR) 10/07/20 10/07/20 10/08/20 18:35 23:57 05:25 WBC 24.6 H RBC 2.91 L Hgb 8.7 L Hct 27.2 L MCV 93.8 MCH 30.0 MCHC 32.0 RDW 16.2 H Plt Count 199 Neut % (Auto) 94.0 H Lymph % (Auto) 2.1 L Divide % (Auto) 3.8 Eos % (Auto) 0.0 L Baso % (Auto) 0.1 Neut # (Auto) 72317 H Lymph # (Auto) 500 L Divide # (Auto) 900 Eos # (Auto) 0 Baso # (Auto) 0 PT INR APTT Sodium Potassium Chloride Carbon Dioxide BUN Creatinine Estimated GFR BUN/Creatinine Ratio Glucose Lactate Calcium Magnesium Total Bilirubin AST ALT Alkaline Phosphatase Total Creatine Kinase 111 CK-MB (CK-2) 2.30 CK-MB (CK-2) Rel Index 2.1 Troponin I 0.057 H NT-Pro-B Natriuret Pep Total Protein Albumin Globulin Albumin/Globulin Ratio Lipase Procalcitonin Urine Color Urine Appearance Urine pH Ur Specific [place] Urine Protein Urine Glucose (UA) Urine Ketones Urine Occult Blood Urine Nitrate Urine Bilirubin Urine Urobilinogen Ur Leukocyte Esterase Urine RBC Urine WBC Ur Squamous Epith Cells Urine Bacteria Ur Culture Indicated? Chlamy pneumoniae PCR Adenovirus (PCR) B. pertussis DNA (PCR) B.parapertussis DNA PCR Coronavirus OC43 (PCR) Coronavirus HKU1 (PCR) Coronavirus 229E (PCR) SARS-CoV-2 (PCR) Negative Coronavirus NL63 (PCR) Human Metapneumovir PCR Influenza Type A (PCR) Influenza Type B (PCR) M. pneumoniae (PCR) Parainfluenza 1 (PCR) Parainfluenza 2 (PCR) Parainfluenza 3 (PCR) Parainfluenza 4 (PCR) RSV (PCR) Entero/Rhino (PCR) 10/08/20 10/08/20 10/08/20 05:25 05:25 07:04 WBC RBC Hgb Hct MCV MCH MCHC RDW Plt Count Neut % (Auto) Lymph % (Auto) Divide % (Auto) Eos % (Auto) Baso % (Auto) Neut # (Auto) Lymph # (Auto) Divide # (Auto) Eos # (Auto) Baso # (Auto) PT INR APTT Sodium 129 L Potassium 4.2 Chloride 93 L Carbon Dioxide 30 BUN 6 L Creatinine 0.31 L Estimated GFR > 60.0 BUN/Creatinine Ratio 19.4 Glucose 140 H Lactate Calcium 8.8 Magnesium Total Bilirubin AST ALT Alkaline Phosphatase Total Creatine Kinase 110 CK-MB (CK-2) 2.45 H CK-MB (CK-2) Rel Index 2.2 Troponin I 0.052 H NT-Pro-B Natriuret Pep 7480 H Total Protein Albumin Globulin Albumin/Globulin Ratio Lipase Procalcitonin 0.10 Urine Color Urine Appearance Urine pH Ur Specific [place] Urine Protein Urine Glucose (UA) Urine Ketones Urine Occult Blood Urine Nitrate Urine Bilirubin Urine Urobilinogen Ur Leukocyte Esterase Urine RBC Urine WBC Ur Squamous Epith Cells Urine Bacteria Ur Culture Indicated? Chlamy pneumoniae PCR Not detected Adenovirus (PCR) Not detected B. pertussis DNA (PCR) Not detected B.parapertussis DNA PCR Not detected Coronavirus OC43 (PCR) Not detected Coronavirus HKU1 (PCR) Not detected Coronavirus 229E (PCR) Not detected SARS-CoV-2 (PCR) Not detected Coronavirus NL63 (PCR) Not detected Human Metapneumovir PCR Not detected Influenza Type A (PCR) Not detected Influenza Type B (PCR) Not detected M. pneumoniae (PCR) Not detected Parainfluenza 1 (PCR) Not detected Parainfluenza 2 (PCR) Not detected Parainfluenza 3 (PCR) Not detected Parainfluenza 4 (PCR) Not detected RSV (PCR) Not detected Entero/Rhino (PCR) Not detected PFSH Medical History Chicken pox (194) Chronic pain syndrome Constipation Essential hypertension Hyperlipidemia Hyponatremia Measles (1946) Osteoarthritis (2000) Pubic ramus fracture Rheumatoid arthritis (1988) Scoliosis (and kyphoscoliosis), idiopathic Spinal stenosis at L4-L5 level Surgical History H/O mastectomy S/P bilateral foot surgery Status post hip surgery (~12/2018) Family History Father Heart disease Grandfather Heart disease Grandmother Diabetes mellitus Social History household members: spouse Smoking Status: Former smoker alcohol intake: current Assessment & Plan Assessment & Plan narrative: 85-year-old female patient with a past medical history hypertension, hyperlipidemia, hyponatremia, spinal stenosis L4-5 with chronic pain scoliosis, kyphosis and constipation who presents to the ER with rigors, fevers and chills, body aches and falls with leukocytosis of unclear etiology. 1. Sepsis with organ dysfunction, present on admission, active -patient meets sepsis 3 criteria with elevated white count at 21.7 now increased to 24.6, tachycardia at 92 beats per minute with cardiac dysfunction with elevated troponin and elevated proBNP and encephalopathy. -the patient is immunosuppressed taking methotrexate 2.5 mg each week and prednisone 1 mg daily for rheumatoid arthritis. -the patient is started empirically on Zosyn 3.375 g IV every 6 hours -etiology is most likely pneumonia based on clinical evaluation, however cxray shows no consolidation, will order CT chest 2. Fever with leukocytosis present on admission, active. -elevated white count at 21.7 rising to 24.6. Procalcitonin is 0.06. Possible steroids are contributing to leukocytosis but this would not explain rise -chest x-ray is negative for effusions or consolidations, CT of the abdomen and pelvis finds only hepatomegaly with steatosis with significant stool loading, urine is positive for protein and ketones but negative leukocyte esterase WBCs or bacteria. -respiratory panel negative, COVID negative 3. Elevated troponin, present on admission, active -12 lead EKG reveals sinus rhythm with PACs, LVH with lateral ST depression consistent with prior tracings. -elevated troponin likely related to demand ischemia initial troponin of 0.038->0.057->0.052. No chest pain, likely elevated in setting of acute illness -proBNP is elevated at 5790 -last echocardiogram was in 05/2019 which found mild to moderate increase in left ventricular wall thickness normal function and a relaxation abnormality. -Ordered repeat echocardiogram. 4. Hyponatremia, present on admission, active -unknown if acute or chronic, serum sodium on admission is 128 with a baseline between 125 in 130. -patient is confused but this is believed related to sepsis noted above, and is now improving on antibiotics -will recheck sodium daily 5. Hypertension, chronic, stable. -patient has elevated blood pressure 188/87 upon arrival the ER and is subsequently is 154/71 upon admission to the acute care floor. -will continue patient's home regimen metoprolol 50 mg daily. 6. Rheumatoid arthritis chronic chronic, stable -unable to ascertain the last dose of methotrexate. -will continue prednisone 1 mg daily. VTE prophylaxis: Enoxaparin IV fluid: Saline lock Diet: Regular Code status: Full code, patient is currently her surrogate decision maker. Quality VTE Deep Vein Thrombosis/Pulmonary Embolism Present on Admission: No
[2020-10-08] MEDS: ONDANSETRON 4 MG/2 ML INJ IV (14:49)
--- NOTE | 2020-10-08 17:24 | PC.NURSE ---
Addendum entered by Belgica Soto R.N. 10/08/20 21:51: Pt's daughter, Scarlett, rooming in overnight. Reports pt has some baseline confusion, but is much more disoriented than baseline. Pt continues to be restless in bed, often tangled in catheter tubing, oxygen tubing, iv tubing. Staff check on pt frequently. Bed alarm is set. Hospitalist Jacob has seen pt this evening. Brisk urinary output per avendano catheter. R.T. treatments. SCD's add to pt's restlessness so these were removed for sleep. Pt denies pain when asked. Addendum entered by Belgica Soto R.N. 10/08/20 18:16: 98% on 2L oxygen per NC. Resting quietly in bed on right side. Eyes closed, but rouses easily. Daughter informed of plan of care this evening for lasix and additional antibiotic, levaquin. Original Note: Pt restless in bed and pt's daughter, who is present in room, confirms this is pt's baseline. Pt oriented to person, date of , daughter Scarlett, in room, month, place, but other conversation is nonsensical. Room air saturation 85%. Replaced oxygen @ 2L per minute which was placed previously on dayshift but pt has removed. Pt does not leave continuous pulse oximeter probe in place. Avendano bag leaking onto floor and this was replaced. BL calf scd's in place. Pt denies pain. Tight breath sounds with occasional faint expiratory wheezes to posterior lung padilla. Dyspnea noted @ rest. Pt confirms this has been baseline for months and daughter confirms. Bed alarm in place. IV to right forearm wrapped in coban for safe keeping. Daughter, Scarlett, present and involved in patients' care.
[2020-10-08] MEDS: levoFLOXacin 500 MG/100 ML PIGGYBACK 100 MG IV (18:18)
[2020-10-08] MEDS: FUROSEMIDE 40 MG/4 ML VIAL IV (18:18)
[2020-10-08] MEDS: ALBUTEROL/IPRATROPIUM 3 ML AMPUL INH (19:50)
[2020-10-09] VITALS (8 sets, daily range): BP systolic 137–174; BP diastolic 73–90; PULSE 60–77; RESP 16–21; TEMP 36.8–37.3; O2SAT 93–98
--- NOTE | 2020-10-09 00:56 | PC.NURSE ---
Patient is oriented except to day of month/day of week; at baseline per daughter. Breath sounds diminished but CTA with sat of 98% on oxygen at 2L/min per NC. HRR w/telemetry reading of SR. Denies nausea. BT present and abdomen is soft. Indwelling catheter is patent; urine is clear yellow. Is able to move self in bed. Gait not assessed at this time but reported by evening RN that patient gets up with walker and 1 assist. Noted multiple bruises/abrasions on bilateral LE. Refuses SCD's; reported makes patient agitated. Denies pain. Fall risk score is high and bed alarm is activated. Daughter rooming in.
[2020-10-09 05:28] LABS: Hematocrit 26.6 % (36-46); Hemoglobin 8.5 g/dL (12.0-16.0); Mean Corpuscular HGB Conc 31.8 % (30-36); Mean Corpuscular Hemoglobin 29.7 PG (26-34); Mean Corpuscular Volume 93.3 fL (80-100); Platelet Count 202 X10^3/uL (150-400); Red Blood Cell Count 2.85 X10^6/uL (4.0-5.2); Red Cell Distribution Width 15.8 % (11.6-14.8); White Blood Cell Count 14.2 X10^3/uL (4.5-11.0)
[2020-10-09 05:38] LABS: BUN Creatinine Ratio 32.6 (6-22); Blood Urea Nitrogen 15 mg/dL (7-17); Calcium 8.8 mg/dL (8.4-10.2); Carbon Dioxide 36 mmol/L (22-32); Chloride 91 mmol/L (98-107); Estimated Glomerular Filt Rate > 60.0 mL/min (>60); Glucose 91 mg/dL (80-110); HEMOLYSIS < 15 (0-50); Potassium 4.5 mmol/L (3.4-5.1); Sodium 130 mmol/L (137-145)
[2020-10-09] MEDS: ALBUTEROL/IPRATROPIUM 3 ML AMPUL INH ×2 (07:55→13:23)
[2020-10-09] MEDS: polyethylene glycoL 3350 17 GM POWD.PACK PO (09:43)
[2020-10-09] MEDS: ENOXAPARIN 40 MG/0.4 ML SYRINGE SUBCUT (09:43)
[2020-10-09] MEDS: DOCUSATE 100 MG CAPSULE PO (09:43)
[2020-10-09] MEDS: METOPROLOL IR 50 MG TABLET PO (09:44)
[2020-10-09] MEDS: predniSONE 1 MG TABLET PO (09:44)
[2020-10-09] MEDS: PANTOPRAZOLE 40 MG VIAL 20 MG IV (09:45)
[2020-10-09] MEDS: SODIUM CHLORIDE 0.9% FLUSH 10 ML IV (09:45)
[2020-10-09] MEDS: ENALAPRIL 5 MG TABLET 2.5 MG PO (10:09)
--- NOTE | 2020-10-09 10:25 | OT.IP.TRT ---
Current Diagnoses Sepsis, unspecified organism (10/07/20) Occupational Therapy Treatment Note M2 OT-IP Current Condition Start: 10/08/20 12:43 Freq: Status: Active Protocol: Document 10/08/20 12:43 CGR (Rec: 10/08/20 13:02 CGR [id number]) Occupational Therapy Current Condition Current Condition Evaluation Date 10/08/20 Treatment Diagnosis Sepsis with leukocytosis Diagnosis Onset Date 10/07/20 M3 OT- IP Subjective and Pain Start: 10/08/20 12:43 Freq: Status: Active Protocol: Document 10/09/20 10:53 CGR (Rec: 10/09/20 10:59 CGR [id number]) OT- Subjective Occupational Therapy Visit Type Type Progress Note Visit Start Time 10:12 Visit Stop Time 10:25 Total Visit Minutes 13 Notes Pt is in bed, just returned from chair. Pt declines any physical activity but is agreeable to cog assessment. Pt's daughter present throughout. OT Pain Assessment Pain When Pain Assessed At Rest Pain Present Pain Present Denied Pain M4 OT- IP ADL's Start: 10/08/20 12:43 Freq: Status: Active Protocol: Document 10/08/20 12:43 CGR (Rec: 10/08/20 13:02 CGR [id number]) OT [id number] Comments OT Self-Feeding Comments not meal time OT ADL-Grooming General Evaluation Grooming Ability Standby Assistance Comments OT Grooming Comments pt washed hands standing at sink OT ADL-Oral Care Comments Oral Care Comments pt states that her daughter already performed oral care for her. OT ADL-Dressing General Eval Lower Body Dressing Ability Maximum Assistance Areas Needing Assistance Underpants/Brief,Socks Comments OT Dressing Comments Pt attempted to don socks but states that she needs help. Pt also needed assist with threading and pulling up brief . OT ADL-Toileting General Evaluation Toileting Ability Moderate Assistance,Maximum Assistance Areas Needing Assistance Manage Clothing,Perform Perineal Hygiene Devices Toileting Assistive Devices Grab Bars Comments OT Toileting Comments Pt attempted BM seated on toilet but was unable. Brief was soiled with BM matter when doffed. back pericare required max a for thoroughness. OT ADL-Bathing Comments OT Bathing Comments Not performed on this date. M5 OT- IP IADL's Start: 10/08/20 12:43 Freq: Status: Active Protocol: Document 10/08/20 12:43 CGR (Rec: 10/08/20 13:02 CGR [id number]) OT-Instrumental Activities of Daily Living Deficits IADL Deficits Identified Deficits Home Safety Awareness Awareness of Need for Assistance at Home Decreased Awareness Ability to Problem Solve Emergency Unable to Problem Solve Situations Medication Management Medication Management Caregiver Administers Money Management Money Management Caregiver Provides Assistance Meal Preparation Meal Preparation Caregiver Provides Assist Embossing Toolsetter Embossing Toolsetter Caregiver Provides Assist Driving Driving Comments Pt does not drive M6 OT- IP Functional Cognition Start: 10/08/20 12:43 Freq: Status: Active Protocol: Document 10/09/20 10:53 CGR (Rec: 10/09/20 10:59 CGR [id number]) Cognitive Factors Limiting Selfcare Function Cognitive Ability Level of Alertness Alert,Drowsy Cognitive Tests SLUMS Pt participated in SLUMS assessment scoring a 10/30. Pt was oriented to day of the week, year and state. She was unable to do simple addition or subtraction. Pt stated 9 animals in 1 minute, was able to recall 2/5 objects for STM testing, was unable to follow directions for sequencing of numbers, scored no points for the clock, was able to identify the largest object and put an X in the triangle as instructed but answered only 1/4 listening comprehension questions. Cognitive Comments Cognitive Assessment Comments Pt's score of 10/30 indicates a designation of dementia per the SLUMS scoring. Pt was lethargic throughout testing and needed tactile cues to focus on testing. A follow up test in 1-2 days would be warranted. M7 OT- IP Mobility and Balance Start: 10/08/20 12:43 Freq: Status: Active Protocol: Document 10/08/20 12:43 CGR (Rec: 10/08/20 13:02 CGR [id number]) OT-Transfer Assessment Sit to and From Stand Sit to and from Stand Minimal Assistance,Moderate Assistance,1 Person Assistance Transfers Transfer Ability Minimal Assistance,Moderate Assistance,1 Person Assistance Technique Transfer Destination Bed,Chair,Toilet Transfer Technique Stand Step Pivot Devices Transfer Assistive Devices Gait Belt,Front Wheeled Walker Comments Mobility Comments Pt needed vc and assist with use of walker for safe mobility. Pt is impulsive in her movement with poor balance . OT- Gait Assessment Gait Gait Assistance Required: Minimum Assistance,Moderate Assistance,1 Person Assist Assistive Devices Assistive Device Gait Belt,Front Wheeled Walker OT- Balance Assessment Sitting Balance and Reactions Static Sitting Balance Ability Poor Dynamic Sitting Balance Ability Poor M8 OT- IP Objective Assessments Start: 10/08/20 12:43 Freq: Status: Active Protocol: Document 10/08/20 12:43 CGR (Rec: 10/08/20 13:02 CGR [id number]) OT Gross Range of Motion Upper Extremity Range of Motion Assessment Within Functional Limits ROM Impairments as seen with ADLs, Pt does not follow commands consistently to perform formal testing. Pt with significantly limited hand ROM d/t arthritic changes. OT Strength Comments Strength Comments as seen with ADLs, Pt does not follow commands consistently to perform formal testing OT- Coordination Assessment Comments Coordination Comments Pt does not follow commands consistently to perform formal testing OT-Muscle Tone Assessment Muscle Tone WNL Yes OT Sensation Assessment Edema Edema Absent M9 OT- IP Assessment and Plan Start: 10/08/20 12:43 Freq: Status: Active Protocol: Document 10/09/20 10:53 CGR (Rec: 10/09/20 10:59 CGR [id number]) OT Summary Assessment and Plan Potential Rehabilitation Potential Fair Analytic Complexity at Evaluation Moderate Summary OT Impairments Range of Motion,Balance, Coordination,Functional Cognition,Functional Mobility, Self-Feeding,Grooming,Dressing ,Toileting,Bathing,Toilet Transfers,Shower Transfers, Activity Tolerance Progress Towards Goals Slow Progress due to Medical Issues,Slow Progress due to Cognition Assessment Summary Pt appears as a moderate complexity evaluation s/p admit for sepsis. Pt scored a 10/30 on the SLUMS today after declining all other activities d/t fatigue. Pt will continue to benefit from OT services. Recommend d/c to home with family. Goals Self-Feeding Goal Standby Assistance Grooming Goal Independent Dressing Goal Independent Toileting Goal Independent Bathing Goal Standby Assistance Toilet Transfer Goal Independent Shower Transfer Goal Standby Assistance Days to Meet Goals 10 Frequency of Treatment Frequency Of Treatment Once a Day Treatment Plan OT Treatment Plan ADL Training,Functional Cognition Training,Functional Mobility,Patient/Family Education,Discharge Planning Other Treatment Recommendations and Next shower, follow up cog Treatment Focus assessment. Discharge Recommendations OT Discharge Recommendations Home with Assistance Transportation Needs at Discharge Private Vehicle
--- NOTE | 2020-10-09 10:51 | PC.NURSE ---
Addendum entered by Hodan Andrade R.N. 10/09/20 14:03: Patients avendano catheter taken out, patient tolerated well. BP systolic up to 170s, patient is stable. Per CHEMISTRY DEPARTMENT CHAIR sats went down into the 70s, placed on 1 liter and high 90s. Patients daughter states that she was lying in an odd position and this may have been why her sats were low. Will reassess in an hour. Original Note: Assess- Patient is pleasantly confused, she denies pain. Daughter in room and helpful to patient. She has a avendano putting out yellow urine. Up with one person assist and walker. Patient has some bruising to arms and legs, she also takes oral prednisone and has thinner skin. Lung sounds clear but diminished. She would like her avendano out, will approach when this Rn sees her.
--- NOTE | 2020-10-09 11:34 | DIET.PN ---
Dietary Progress Note Assessment: Ms. Kalpana Guzmán is an 85 yof admitted for sepsis w/ organ dysfunction, body aches and sleeplessness. Per the patient's family at bedside patient had a 100.3 temperature on admission and over the last several days complained of being very tired and has sustained falls. Patient has associated complaints of malaise and weakness. Daughter reports pt with poor appetite with morning vomiting and difficulty swallowing. HT: 160.02cm WT: 45.4kg UBW: BMI: 17.7 Labs: ProBNP: 5790 MNA: 7 (malnourished) Sixto: 13 Nutrition Diagnosis: Severe acute PCM r/t GI complications aeb pt daughter reports decreased energy intake <50% with GI symptoms vomiting, BMI 17.7 (over age 65 <21), NFPE mod loss of subcutaneous fat, muscle wasting. Interventions: 1. Reviewed pt intake. Pt agreeable to ensure enlive BID for nutrition support. Diet Order: General EER: 1350 devora (30 devora/kg) Pro: 54g (1.2g/kg) Monitoring/Evaluations: Weight, PO's, labs
--- NOTE | 2020-10-09 12:31 | SLP.IPNOTE ---
Checked in with the patient. Her daughter was in the room helping her to bed. Introduced myself and explained my stopping by. The pt's daughter indicated that her mother back to her baseline and she saw no need for ST at this time. Pt to be discharged to acute rehab today. Informed Dr. Patrick and nursing
--- NOTE | 2020-10-09 13:17 | SLP.IPNOTE ---
Checked in with the patient. Her daughter was in the room helping her to bed. Introduced myself and explained my stopping by. The pt's daughter indicated that her mother back to her baseline and she saw no need for ST at this time.
--- NOTE | 2020-10-09 13:30 | PT.IPTN ---
Current Diagnoses Sepsis, unspecified organism (10/07/20) Physical Therapy Treatment Note M2 PT-IP Current Condition Start: 10/08/20 08:45 Freq: NEEDED Status: Active Protocol: Document 10/08/20 10:31 AW (Rec: 10/08/20 11:51 AW [id number]) Physical Therapy Current Condition Current Condition Evaluation Date 10/08/20 Treatment Diagnosis sepsis, delirium, generalized weakness, difficulty in walking Onset Date 10/07/20 Precautions Other Precautions falls M3 PT-IP Subjective Start: 10/08/20 08:45 Freq: NEEDED Status: Active Protocol: Document 10/09/20 13:30 AW (Rec: 10/09/20 14:38 AW [id number]) Subjective Physical Therapy Visit Type Type Treatment Note Visit Start Time 13:16 Visit Stop Time 13:30 Total Visit Minutes 14 Notes Pt's daughter was present at beginning and end of session. Number of WAREHOUSE HELPER Visits 0 Physical Therapy Visit Comments Patient Comments The doctor's going to come see me and send me home. Therapy Pain Assessment Pain When Pain Assessed At Rest Pain Present Pain Present Denied Pain M4 PT-IP Mobility and Gait Start: 10/08/20 08:45 Freq: NEEDED Status: Active Protocol: Document 10/09/20 13:30 AW (Rec: 10/09/20 14:38 AW [id number]) PT-Bed Mobility Assessment Supine to Sit Supine to Sit Standby Assistance Sit to Supine Sit to Supine Standby Assistance Scooting Scooting to Edge of Bed Contact Guard Assistance PT-Transfer Assessment Sit to and From Stand Sit to and from Stand Contact Guard Assistance,1 Person Assistance,Use of Upper Extremities Equipment Transfer Assistive Device Gait Belt,Front Wheeled Walker Orthotic/Prosthetic Devices or Brace: No Transfers Transfer Destination Bed Transfer Technique Stand Step Pivot Transfer Ability Level of Assist Minimal Assistance,1 Person Assistance,Use of Upper Extremities Comments Mobility Comments Pt was lying in the bed as PT arrived. She agreed to get up, sitting up EOB SBA. She stood with slight initial unsteadiness requiring CGA and then used the FWW to ambulate 130 feet in the halls CGA and cues for safe walker management. On return to the room, pt requested return to bed stating she'd been sitting up in the window seat all morning. She transferred back to supine SBA and was left with call light and all needs in reach as her daughter returned to the room. Gait Assessment Gait Gait Assistance Required: Contact Guard Assist,Minimum Assistance Distance (Feet) 130 Assistive Devices Assistive Device Gait Belt,Front Wheeled Walker Orthotic/Prosthetic Devices or Brace: No Gait Deviations General Gait Pattern Decreased Stride Length, Decreased Feet Clearance, Flexed Trunk,Lateral Trunk Lean,Narrow Based Gait Factors Limiting Gait Function Factors Limiting Gait Function Decreased Activity Tolerance, Decreased Strength,Difficulty Following Directions,Poor Balance,Poor Safety Awareness Comments Gait Comments Pt leans to the left during gait and requires frequent cues to maintain safe distance trunk <> walker frame. Stair Climbing Assessment Comments Stair Climbing Comments Not assessed. Pt does not need to navigate stairs at home. PT-Balance Assessment Sitting Balance and Reactions Static Sitting Balance Ability Good Dynamic Sitting Balance Ability Fair Standing Balance and Reactions Static Standing Balance Ability Fair Dynamic Standing Balance Ability Poor Device Used FWW M5 PT-IP Objective Assessments Start: 10/08/20 08:45 Freq: NEEDED Status: Active Protocol: Document 10/08/20 10:31 AW (Rec: 10/08/20 11:53 AW [id number]) Orientation Orientation/Cognition Level of Alertness Confusional State Orientation Name,Year,Place Language Function Ability No Deficits Noted Safety Awareness Decreased Safety Awareness Memory Description Short Term Impaired,Prison Impaired Gross Range of Motion Lower Extremity ROM Assessment Within Functional Limits Strength Comments Strength Comments Unable to accurately assess due to cognitive status. Coordination Assessment Assessment Coordination Comments Unable to assess due to cognitive status. Sensation Assessment Comments Sensation Comments Unable to assess due to cognitive status. M6 PT-IP Treatment Start: 10/08/20 08:45 Freq: NEEDED Status: Active Protocol: Document 10/09/20 13:30 AW (Rec: 10/09/20 14:38 AW [id number]) Physical Therapy Treatment Education Education Provided Safety M7 PT-IP Assessment and Plan Start: 10/08/20 08:45 Freq: NEEDED Status: Active Protocol: Document 10/09/20 13:30 AW (Rec: 10/09/20 14:38 AW [id number]) PT Summary Assessment and Plan Potential Rehabilitation Potential Good Status of Condition at Evaluation Evolving Summary Impairments Strength,Balance,Cognition,Bed Mobility,Transfers,Gait, Activity Tolerance Progress Towards Goals Progressing Toward Goals Assessment Summary Stephanie required less assist for mobility this date and appears to be approaching her baseline. She is in good spirits and hopeful to go home in the next day. Pt showing good progress and likely safe for discharge home with family assist. She would benefit from home health therapy to improve strength and mobility independence. Goals Bed Mobility Goal Standby Assistance Transfer Goal Contact Guard Assistance,Front Wheeled Walker Gait Goal Contact Guard Assistance,Front Wheel Walker Gait Distance 75 Other Goals - improve ambulation to 150 feet with FWW SBA Days to Meet Goals 5 Frequency of Treatment Frequency Of Treatment Once a Day Treatment Plan Physical Therapy Treatment Plan Bed Mobility Training,Transfer Training,Gait Training, Therapeutic Exercise,Balance Retraining,Discharge Planning, Neuromuscular Re-ed, Coordination Retraining Other Recommendations and Next Treatment gait training, safety Focus awareness Precautions Other Precautions falls Recommendations To Nursing Amount of Assist Needed 1 Person Assist Discharge Recommendations PT Discharge Recommendations Home with 03/02 Assist Available,Home Health Transportation Needs at Discharge Private Vehicle
[2020-10-09] MEDS: AMOXICILLIN/CLAV 875/125 MG 1 TAB PO (16:49)
--- NOTE | 2020-10-09 17:49 | PC.NURSE ---
Discharge Note Patient A&O to baseline, VSS, RA 93%, no complaints of pain or discomfort. Patient has voided post avendano removal. Discharge packet reviewed with patient and daughter. Per daughter request Dr Patrick ordered a 1 time dose of PO antibiotic for tonight prior to discharge. Daughter states she is unable to sheepskin pickler script tonight at preferred pharmacy. PO antibiotic given to patient at 1700. Reminded daughter to sheepskin pickler script tomorrow and give PO antibiotic tomorrow at 1700. All other questions/concerns answered. PIV/tele dsicontinued. All belongings packed and given to patient's daughter along with discharge instructions. Patient taken down via wheelchair to POV.
--- NOTE | 2020-10-11 18:26 | P.DS_ITS ---
History of Present Illness History of Present Illness Date Patient Seen: 10/09/20 Chief complaint: BODY ACHES/NOT SLEEPING Narrative: Ms. Kalpana Guzmán is an The patient The patient is unable to contribute to the medical record due to state of confusion. Per the patient's family at bedside patient had a 100.3 temperature today and over the last several days of complained of being very tired and has sustained falls. The family also reports shaking chills today. The patient was out of town until recently at which time she would fall asleep on the phone. Patient has associated complaints of malaise and weakness. She has had tender to COVID vaccines the 2nd dose being 09/14/2020. Per the family the patient has reported no complaints of headaches only the fatigue. No visual changes and has had poor appetite. She has not told him of any chest pain, shortness of breath. Family does report extensive coughing to the point of gagging. She has also reported nonspecific abdominal pain and has had no nausea and has chronic constipation. At baseline the patient is ambulatory with a walker or cane. Upon arrival to the ER the patient's temperature 100.3?, heart rate of 92, blood pressure 188/87, respirations 18 saturating 97% on room air. Chest x-ray is obtained which finds cardiomyopathy without effusions or consolidations. Twelve lead EKG shows a sinus rhythm with PACs increased artifact overlying left atrial enlargement with LVH in lateral ST depressions similar to prior tracings. On laboratory analysis the patient has white count of 21.7, neutrophils of 19,000, hemoglobin of 9.3 and hematocrit of 29.1 with platelets of 218. Her coags are within normal range. She has a sodium 128, potassium of 3.7, BUN of 8 creatinine is 0.26. Her magnesium level is 1.6 Her nonfasting glucose is 123. Her liver functions are all within normal limits. Patient has elevated troponin at 0.038 with a proBNP of 5790. Procalcitonin is 0.06. Urinalysis positive for protein and ketones but negative for leukocyte esterase WBCs or bacteria. Or the patient appeared to become more confused of [address] was obtained with movement artifact limiting interpretation, no definite acute processes. In the ER the patient received Solu-Medrol 100 mg IV, Dilaudid 0.5 mg IV and Zosyn 4.5 g IV. The patient is admitted to the hospitalist service for fever unknown origin and leukocytosis and probable bacteremia. Discharge Providers Provider Date of admission: 10/07/20 23:01 Discharge Date: 10/09/20 Primary care physician: Lara Castanon MD Consults: 10/07/20 23:49 Consult to Dietitian, Adult Routine Comment: Reason For Exam: Malnutrition, BMI 17.7 Consult to Discharge Planning Routine Comment: Consult to Occupational Therapy Evaluate & Treat Comment: Falls Physician Instructions: Evaluate and treat Consult to Physical Therapy Evaluate & Treat Comment: Falls Physician Instructions: Evaluate and Treat 10/08/20 02:15 Consult to Respiratory Therapy Evaluate & Treat Comment: Physician Instructions: Evaluate and treat 10/08/20 02:42 Consult to Dietitian, Adult Routine Comment: Pt's daughter report's that pt vomits in AM Reason For Exam: at risk for malnourishment 10/08/20 06:44 Consult to Speech Therapy Evaluate & Treat Comment: pt says difficulty swallowing, did pass swllw eval Physician Instructions: Evaluate and treat Discharge provider: Tonya Patrick MD Summary Hospital Course Discharge Diagnosis: Severe sepsis, present on admission, manifested with organ dysfunction, fever, confusion, etiology unclear 2. Hyponatremia 3. Metabolic encephalopathy 4. Hyperlipidemia 5. Rheumatoid arthritis 6. GERD 7. Severe Protein Calorie Malnutrition 8. Anemia of chronic disease Hospital Course: Patient was admitted to the hospital with confusion, low-grade fever, and signs of severe sepsis manifested as organ dysfunction. Patient did have a chest x-ray which showed no infiltrate, chest CT showed bilateral e ffusions but no infiltrate. Patient had an abdominal pelvic CT which showed constipation hepatic steatosis but no intra-abdominal pathology. An echocardiogram revealed grade 2 diastolic dysfunction in addition to severe biatrial enlargement. Patient remained febrile. She had an elevated white co unt. She was confused. And had evidence of sepsis. She was treated with IV antibiotics. Her confusion improved. Her fever improved. And clinically the patient appeared to be back to her baseline. Of note she had a head CT on admission which was negative. The patient was deemed appropriate for discharge and sent home on oral levofloxacin, in addition to her usual medications. There was no obvious etiology of her sepsis. Status at Discharge Cognitive/behavioral status at discharge: oriented Functional status at discharge: uses cane/walker Overall status at discharge: patient is back to baseline Time Spent with Patient Time spent: Less than 30 minutes Exam Vital Signs (past 8 hours): Oxygen Delivery Method Room Air Oxygen Flow Rate 2 Narrative Exam Narrative: Delightful elderly female lying in bed in no obvious distress Lungs: Decreased breath sounds but clear Cardiac exam: Regular rate and rhythm normal S1-S2 Abdomen: Soft nontender nondistended Extremity id: She has bony deformities of the upper extremities specifically the hands, no lower extremity edema Objective Labs Result Diagrams: 10/09/20 05:00 10/09/20 05:00 [facility] Medical History Chicken pox (194) Chronic pain syndrome Constipation Essential hypertension Hyperlipidemia Hyponatremia Measles (1946) Osteoarthritis (2000) Pubic ramus fracture Rheumatoid arthritis (1988) Scoliosis (and kyphoscoliosis), idiopathic Spinal stenosis at L4-L5 level Surgical History H/O mastectomy S/P bilateral foot surgery Status post hip surgery (~12/2018) Family History Father Heart disease Grandfather Heart disease Grandmother Diabetes mellitus Social History household members: spouse Smoking Status: Former smoker alcohol intake: current Discharge Assessment & Plan Assessment and Plan Assessment: 1. Severe sepsis etiology unclear 2. Severe protein calorie malnutrition 3. Hypertension 4 GERD 5. Hyponatremia 6. Rheumatoid arthritis Plan of Treatment: discharge home Follow up with PCP next week Discharge Plan Discharge Plan Patient Disposition: Home Discharge orders & Medications Prescriptions: New levofloxacin 500 mg tablet 500 mg PO DAILY Qty: 6 RF: 0 Continued atorvastatin [Lipitor] 20 MG tablet 20 mg PO HS Qty: 0 RF: 0 enalapril maleate 2.5 MG tablet 2.5 mg PO QDAY Qty: 0 RF: 0 folic acid 1 MG tablet 1 mg PO QDAY Qty: 0 RF: 0 calcium carbonate [Calcium 500] 500 MG tablet 1 tab PO DAILY Qty: 0 RF: 0 acetaminophen-codeine 300-15 mg Tablet 1 tab PO Q4H PRN (Reason: Pain (Scale Score 1-3)) RF: 0 methotrexate sodium 2.5 mg Tablet 2.5 mg PO QWEEK RF: 0 metoprolol tartrate 50 mg Tablet 50 mg PO DAILY RF: 0 omeprazole 20 mg Capsule,Delayed Release(Dr/Ec) 20 mg PO DAILY RF: 0 aspirin 81 mg Tablet,Chewable 81 mg PO DAILY RF: 0 acetaminophen 325 mg Tablet 650 mg PO Q6H PRN (Reason: Pain (Scale Score 1-3)) RF: 0 prednisone 1 mg tablet,delayed release (DR/EC) 1 mg PO DAILY RF: 0 Follow up/Referrals: Lara Castanon MD [Primary Care Provider] - Discharge Health Status Multidrug resistant organism: No MDRO Diet/Activity/Treatments Diet: Diet as Tolerated Skin/Wound/Dressing Care Report to your healthcare provider any signs of infection, such as:: chills, fever Discharge Data Primary Care Provider: Lara Castanon VTE Deep Vein Thrombosis/Pulmonary Embolism Present on Admission: No
== END 2020-10-09 17:00 | disposition home or self-care (01) | DRG 871 ==
LOC: ED 22:16 → AC 23:01
PROVIDERS: Emergency Medicine; Internal Medicine; Admitting Provider Nurse Practitioner Adult Health; Emergency Provider Emergency Medicine; Family Provider Internal Medicine; PCP Internal Medicine; Referring Provider Emergency Medicine; Visit Provider Nurse Practitioner Adult Health
DX: A41.9 Sepsis, unspecified organism (principal); G93.41 Metabolic encephalopathy; E43 Unspecified severe protein-calorie malnutrition; I24.8 Other forms of acute ischemic heart disease; D84.821 Immunodeficiency due to drugs; E87.1 Hypo-osmolality and hyponatremia; R65.20 Severe sepsis without septic shock; M06.9 Rheumatoid arthritis, unspecified; Z79.899 Other long term (current) drug therapy; Z20.822 Contact with and (suspected) exposure to COVID-19; I10 Essential (primary) hypertension; E78.5 Hyperlipidemia, unspecified; B99.9 Unspecified infectious disease
CPT/HCPCS: 36415; 70450; 71045; 71250; 74177; 80048; 80053; 81001; 82550; 82553; 83605; 83690; 83735; 83880; 84145; 84484; 85025; 85027; 85610; 85730; 87040; 87070; 87077; 87205; 87633; 87635; 93005; 93306; 94640; 94760; 94762; 96361; 96365; 96375; 97116; 97129; 97161; 97166; 97535; 99285; C9113; J1170; J1650; J1720; J1940; J1956; J2405; J2543; Q9967